=== PATIENT | female | born 1965 | race Caucasian/White ===

== ENCOUNTER 2019-08-23 22:41 | Observation (INO) | payer MEDICARE ==
--- NOTE | 2019-08-23 23:39 | ERPHSYRPT ---
- History of Present Illness Time Seen by Provider: 08/23/19 23:36 Historian: patient Patient Subjective Stated Complaint: Patient states " My stomach has really been hurting my the last 3 days". Patient states " At first I thought i had some food poisoning but the the pain went further down and to my right side". Patient states " I havent been able to eat for 3 days". Patient states she is able to drink. Patient with complaints of nausea. Triage Nursing Assessment: Patient arrived to ER. Patient ambulated to room with slow and steady gait. Patient A/O times 4. Patient answers questions appropriatley. Patient lungs diminshed throughout A/P. Patient with wheezes throughout prior to coughing. Patient denies SOB and chest pain. Patient denies vomiting. + BS times 4 quads, although very hypoactive. ABD large, obese. Patient yells out in pain when ABD is palpitated. Patient states pain radiates to her back. Physician History: For the past 3 days pt has had constant lower abdominal pain described as cramping/dull pain with nausea, chills and diaphoresis. Pt states she has COPD and has been on CPAP at night for 10 years. LBM was 2 days ago and normal without blood. Pt denies chest pain, vomiting, rash. Allergies/Adverse Reactions: amoxicillin [Amoxicillin] Allergy (Mild, Verified 08/23/19 23:11) aripiprazole [From Abilify] Allergy (Mild, Verified 08/23/19 23:11) azithromycin [From Zithromax] Allergy (Mild, Verified 08/23/19 23:11) codeine [Codeine] Allergy (Mild, Verified 08/23/19 23:11) metronidazole [From Flagyl] Allergy (Mild, Verified 08/23/19 23:11) Metronidazole HCl [From Flagyl] Allergy (Mild, Verified 08/23/19 23:11) Penicillins Allergy (Mild, Verified 08/23/19 23:11) quetiapine fumarate [From Seroquel] Allergy (Mild, Verified 08/23/19 23:11) trazodone Allergy (Mild, Verified 08/23/19 23:11) Home Medications: Albuterol Sulfate Mdi [Proair Hfa MDI] 8.5 gm IN DAILY 08/23/19 [History] Carvedilol 3.125 mg [Coreg 3.125 MG] 3.125 mg PO BID 08/23/19 [History] Duloxetine HCl 30 mg PO DAILY 08/23/19 [History] Duloxetine HCl 60 mg PO DAILY 08/23/19 [History] Fluticasone Propion/Salmeterol [[place]ixela 250-50 Inhub] 2 puffs PO DAILY 08/23/19 [ History] Folic Acid 1 mg PO DAILY 08/23/19 [History] Lisinopril/Hydrochlorothiazide [Lisinopril-Hctz 20-25 mg Tab] 20 - 25 mg PO DAILY 08/23/19 [History] Metformin HCl 500 mg PO BID 08/23/19 [History] Methotrexate Sodium 2.5 mg [Trexall 2.5 mg] 2.5 mg PO WEEKLY 08/23/19 [ History] clonazePAM [Clonazepam] 0.5 mg PO TID 08/23/19 [History] predniSONE [Prednisone] 5 mg PO BID 08/23/19 [History] Hx Tetanus, Diphtheria Vaccination/Date Given: No Hx Influenza Vaccination/Date Given: No Hx Pneumococcal Vaccination/Date Given: No Immunizations Up to Date: Yes Travel Risk - International Travel Have you traveled outside of the country in past 3 weeks: No Have you or anyone close to you been diagnosed with or: No Do your reside in a community with a known COVID-19 case?: Yes If Yes where:: [facility] - Coronavirus Screening Has patient experienced Coronavirus symptoms: No - Review of Systems Constitutional: Chills, Other (diaphoresis) Ears, Nose, & Throat: No Ear Pain Respiratory: Cough (chronic for years.) Cardiac: No Chest Pain Abdominal/Gastrointestinal: Abdominal Pain, Nausea, No Vomiting, No Diarrhea Genitourinary Symptoms: No Dysuria Skin: No Rash Neurological: No Headache All Other Systems: Reviewed and Negative - Past Medical History Pertinent Past Medical History: Yes Neurological History: No Pertinent History ENT History: No Pertinent History Cardiac History: Hypertension Respiratory History: Bronchitis, COPD, Other Endocrine Medical History: Diabetes Type II Musculoskeletal History: Rheumatoid Arthritis GI Medical History: No Pertinent History History: No Pertinent History Psycho-Social History: Anxiety, Bipolar, Depression Female Reproductive Disorders: Cervical Cancer - Past Surgical History Past Surgical History: Yes Neuro Surgical History: No Pertinent History Cardiac: No Pertinent History Respiratory: No Pertinent History Gastrointestinal: No Pertinent History Genitourinary: No Pertinent History Musculoskeletal: Orthopedic Surgery Female Surgical History: Tubal Ligation Other Surgical History: ankle - Social History Smoking Status: Current every day smoker How long have you smoked: 30 years Exposure to second hand smoke: Yes Drug Use: none Patient Lives Alone: No - Female History Hx Now: No - Nursing Vital Signs Nursing Vital Signs: Initial Vital Signs Temperature 99.4 F 08/23/19 22:52 Pulse Rate 120 H 08/23/19 22:52 Respiratory Rate 20 08/23/19 22:52 Blood Pressure 120/69 08/23/19 22:52 O2 Sat by Pulse Oximetry 97 08/23/19 22:52 Pain Scale Pain Intensity 8 - Physical Exam General Appearance: alert Eye Exam: PERRL/EOMI Ears, Nose, Throat Exam: TMs normal, pharyngeal erythema (mild) Neck Exam: normal inspection Respiratory Exam: wheezing (mild expiratory wheezing over posterior bases.) Cardiovascular Exam: normal heart sounds Gastrointestinal/Abdomen Exam: soft, normal bowel sounds, tenderness (mild diffuse) Back Exam: normal inspection Extremity Exam: No pedal edema Neurologic Exam: alert, cooperative Skin Exam: warm, dry SpO2 Interpretation: normal SpO2: 97 O2 Delivery: Room Air - Course Nursing assessment & vital signs reviewed: Yes EKG Interpreted by Me: RATE (71), Sinus Rhythm, NORMAL AXIS, Non-specific ST Changes - Radiology Exams Chest X-ray Interpretation: Interpreted by me (no pneumonia) - CT Exams Abdomen/Pelvis CT Interpretation: Tele-radiologist Report (large complex right adnexal mass with solid and cystic components measuring approximately 14.1 x 13.5 x 15.5 cm with mild surrounding inflammatory changes. malignancy as well as ovarian torsion cannot be excluded. recommend further evaluiation with a pelvic ultrasound with doppler. mildly enlarged right pelvic and retroperitoneal lymph nodes.) Ordered Tests: Active Orders 24 hr Category Date Time Status EKG-ER Only STAT Care 08/23/19 23:53 Active IV Insertion STAT Care 08/23/19 23:53 Active ABDOMEN AND PELVIS W/0 CONTRAS [CT] Stat Exams 08/24/19 00:30 Taken CHEST 2 VIEWS (PA AND LAT) Stat Exams 08/24/19 00:30 Taken PELVIC [US] Stat Exams 08/24/19 01:43 Ordered AMYLASE Stat Lab 08/23/19 23:33 Completed BLOOD CULTURE Stat Lab 08/24/19 00:32 Received CBC W DIFF Stat Lab 08/23/19 23:33 Completed CMP Stat Lab 08/23/19 23:33 Completed D-DIMER QUANTITATIVE Stat Lab 08/23/19 23:33 Completed HCG QUALITATIVE,SERUM Stat Lab 08/23/19 23:33 Completed LIPASE Stat Lab 08/23/19 23:33 Completed Lactic Acid Stat Lab 08/24/19 03:44 Ordered MAGNESIUM Stat Lab 08/23/19 23:33 Completed Manual Differential NC Stat Lab 08/23/19 23:33 Completed [place] Screen Stat Lab 08/23/19 23:33 Completed NT PRO BNP Stat Lab 08/23/19 23:33 Completed TROPONIN Q3H Lab 08/23/19 23:53 Completed TROPONIN Q3H Lab 08/24/19 02:53 Ordered TROPONIN Q3H Lab 08/24/19 05:53 Ordered TROPONIN Q3H Lab 08/24/19 08:53 Ordered TROPONIN Q3H Lab 08/24/19 11:53 Ordered Respiratory MDI STAT RT 08/24/19 00:23 Completed Respiratory Therapy Assessment DAILY RT 08/24/19 00:24 Completed Medication Summary Generic Name Dose Route Start Last Admin Trade Name Freq PRN Reason Stop Dose Admin Albuterol Sulfate 0.18 gm 08/23/19 23:45 Ventolin Hfa Mdi IH 09/22/19 23:44 1XONLY ISABEL Sodium Chloride 1,000 mls @ 100 mls/hr 08/23/19 23:45 08/24/19 00:12 Sodium Chloride 0.9% 1000 Ml IV 09/22/19 23:44 100 mls/hr .Q10H ISABEL Administration Discontinued Medications Generic Name Dose Route Start Last Admin Trade Name Freq PRN Reason Stop Dose Admin Albuterol Sulfate 2 puff 08/24/19 00:23 08/24/19 00:27 Ventolin Common Canister IH 08/24/19 00:24 2 puff ONCE ONE Administration Fentanyl Citrate 100 mcg 08/24/19 00:22 08/24/19 00:41 Sublimaze 100 Mcg/2 Ml IV 08/24/19 00:23 100 mcg STAT ONE Administration Fentanyl Citrate Confirm 08/24/19 00:39 Sublimaze 100 Mcg/2 Ml Administered 08/24/19 00:40 Dose 100 mcg .ROUTE .STK-MED ONE Ceftriaxone Sodium/Dextrose 1 g in 50 mls @ 100 mls/hr 08/23/19 23:53 00:13 Rocephin 1 Gm-D5w 50 Ml Bag IV 08/24/19 00:22 100 mls/hr STAT STA 100 mls/hr Administration Sodium Chloride 1,000 mls @ 999 mls/hr 08/24/19 02:16 08/24/19 02:18 Sodium Chloride 0.9% 1000 Ml IV 08/24/19 03:16 999 mls/hr .Q1H1M STA Administration Ketorolac Tromethamine 30 mg 08/24/19 03:45 Toradol 30 Mg Injection IV 08/24/19 03:46 STAT ONE Ondansetron HCl 4 mg 08/24/19 00:22 08/24/19 00:41 Zofran 4 Mg/2 Ml Vial IV 08/24/19 00:23 4 mg STAT ONE Administration Ondansetron HCl Confirm 08/24/19 00:39 Zofran 4 Mg/2 Ml Vial Administered 08/24/19 00:40 Dose 4 mg .ROUTE .STK-MED ONE Lab/Rad Data: Laboratory Result Diagrams 08/23/19 23:33 08/23/19 23:33 Laboratory Results 08/24/19 08/24/19 08/23/19 Range/Units 03:55 00:20 23:33 WBC (4.0-10.5) K/mm3 RBC (4.1-5.4) M/mm3 Hgb (12.0-16.0) gm/dl Hct (35-47) % MCV (78-100) fl MCH (26-32) pg MCHC (32-36) g/dl RDW (11.5-14.0) % Plt Count (150-450) K/mm3 MPV (7.5-11.0) fl D-Dimer (215-500) ng/mL Sodium (137-145) mmol/L Potassium (3.5-5.1) mmol/L Chloride (98-107) mmol/L Carbon Dioxide (22-30) mmol/L Anion Gap (5-15) MEQ/L BUN (7-17) mg/dL Creatinine (0.52-1.04) mg/dL Estimated GFR ML/MIN Glucose (74-106) mg/dL Lactic Acid 1.9 (0.4-2.0) Calcium (8.4-10.2) mg/dL Magnesium (1.6-2.3) mg/dL Total Bilirubin (0.2-1.3) mg/dL AST (14-36) U/L ALT (0-35) U/L Alkaline Phosphatase (38-126) U/L Troponin I < 0.012 (0.000-0.034) ng/mL NT-Pro-B Natriuret Pep (0-900) pg/mL Serum Total Protein (6.3-8.2) g/dL Albumin (3.5-5.0) g/dL Amylase (30-110) U/L Lipase (23-300) U/L Serum , Qual (Negative) Urine Color (YELLOW) Urine Appearance (CLEAR) Urine pH (5-6) Ur Specific [place] (1.005-1.025) Urine Protein (Negative) Urine Ketones (NEGATIVE) Urine Blood (0-5) Lui/ul Urine Nitrite (NEGATIVE) Urine Bilirubin (NEGATIVE) Urine Urobilinogen (0-1) mg/dL Ur Leukocyte Esterase (NEGATIVE) Urine WBC (Auto) (0-5) /HPF Urine RBC (Auto) (0-2) /HPF U Hyaline Cast (Auto) (0-2) /LPF U Epithel Cells (Auto) (FEW) /HPF Urine Bacteria (Auto) (NEGATIVE) /HPF U Non-Squamous Epi Cells (FEW) /HPF Unidentified Crystals (NEGATIVE) /HPF Other Casts (Auto) (NEGATIVE) /LPF Urine Mucus (Auto) (NEGATIVE) /HPF Urine Culture Reflexed (NO) Urine Glucose (NEGATIVE) mg/dL Monoscreen NEGATIVE (Negative) Influenza Type A Ag (NEGATIVE) Influenza Type B Ag (NEGATIVE) RSV (PCR) (Negative) Group A Strep Antibody (NEGATIVE) 08/23/19 08/23/19 08/23/19 Range/Units 23:33 23:33 23:33 WBC (4.0-10.5) K/mm3 RBC (4.1-5.4) M/mm3 Hgb (12.0-16.0) gm/dl Hct (35-47) % MCV (78-100) fl MCH (26-32) pg MCHC (32-36) g/dl RDW (11.5-14.0) % Plt Count (150-450) K/mm3 MPV (7.5-11.0) fl D-Dimer 1559 H* (215-500) ng/mL Sodium (137-145) mmol/L Potassium (3.5-5.1) mmol/L Chloride (98-107) mmol/L Carbon Dioxide (22-30) mmol/L Anion Gap (5-15) MEQ/L BUN (7-17) mg/dL Creatinine (0.52-1.04) mg/dL Estimated GFR ML/MIN Glucose (74-106) mg/dL Lactic Acid (0.4-2.0) Calcium (8.4-10.2) mg/dL Magnesium 2.0 (1.6-2.3) mg/dL Total Bilirubin (0.2-1.3) mg/dL AST (14-36) U/L ALT (0-35) U/L Alkaline Phosphatase (38-126) U/L Troponin I (0.000-0.034) ng/mL NT-Pro-B Natriuret Pep 110 (0-900) pg/mL Serum Total Protein (6.3-8.2) g/dL Albumin (3.5-5.0) g/dL Amylase (30-110) U/L Lipase (23-300) U/L Serum , Qual NEGATIVE (Negative) Urine Color (YELLOW) Urine Appearance (CLEAR) Urine pH (5-6) Ur Specific [place] (1.005-1.025) Urine Protein (Negative) Urine Ketones (NEGATIVE) Urine Blood (0-5) Lui/ul Urine Nitrite (NEGATIVE) Urine Bilirubin (NEGATIVE) Urine Urobilinogen (0-1) mg/dL Ur Leukocyte Esterase (NEGATIVE) Urine WBC (Auto) (0-5) /HPF Urine RBC (Auto) (0-2) /HPF U Hyaline Cast (Auto) (0-2) /LPF U Epithel Cells (Auto) (FEW) /HPF Urine Bacteria (Auto) (NEGATIVE) /HPF U Non-Squamous Epi Cells (FEW) /HPF Unidentified Crystals (NEGATIVE) /HPF Other Casts (Auto) (NEGATIVE) /LPF Urine Mucus (Auto) (NEGATIVE) /HPF Urine Culture Reflexed (NO) Urine Glucose (NEGATIVE) mg/dL Monoscreen (Negative) Influenza Type A Ag (NEGATIVE) Influenza Type B Ag (NEGATIVE) RSV (PCR) (Negative) Group A Strep Antibody (NEGATIVE) 08/23/19 08/23/19 08/23/19 Range/Units 23:33 23:33 00:38 WBC 26.6 H* (4.0-10.5) K/mm3 RBC 4.76 (4.1-5.4) M/mm3 Hgb 15.3 (12.0-16.0) gm/dl Hct 46.2 (35-47) % MCV 97.1 (78-100) fl MCH 32.1 H (26-32) pg MCHC 33.1 (32-36) g/dl RDW 14.2 H (11.5-14.0) % Plt Count 325 (150-450) K/mm3 MPV 9.8 (7.5-11.0) fl D-Dimer (215-500) ng/mL Sodium 138 (137-145) mmol/L Potassium 3.7 (3.5-5.1) mmol/L Chloride 98 (98-107) mmol/L Carbon Dioxide 27 (22-30) mmol/L Anion Gap 16.7 H (5-15) MEQ/L BUN 25 H (7-17) mg/dL Creatinine 1.30 H (0.52-1.04) mg/dL Estimated GFR 45.7 ML/MIN Glucose 145 H (74-106) mg/dL Lactic Acid (0.4-2.0) Calcium 10.3 H (8.4-10.2) mg/dL Magnesium (1.6-2.3) mg/dL Total Bilirubin 1.80 H (0.2-1.3) mg/dL AST 21 (14-36) U/L ALT 24 (0-35) U/L Alkaline Phosphatase 88 (38-126) U/L Troponin I (0.000-0.034) ng/mL NT-Pro-B Natriuret Pep (0-900) pg/mL Serum Total Protein 9.1 H (6.3-8.2) g/dL Albumin 4.5 (3.5-5.0) g/dL Amylase 85 (30-110) U/L Lipase 48 (23-300) U/L Serum , Qual (Negative) Urine Color (YELLOW) Urine Appearance (CLEAR) Urine pH (5-6) Ur Specific [place] (1.005-1.025) Urine Protein (Negative) Urine Ketones (NEGATIVE) Urine Blood (0-5) Lui/ul Urine Nitrite (NEGATIVE) Urine Bilirubin (NEGATIVE) Urine Urobilinogen (0-1) mg/dL Ur Leukocyte Esterase (NEGATIVE) Urine WBC (Auto) (0-5) /HPF Urine RBC (Auto) (0-2) /HPF U Hyaline Cast (Auto) (0-2) /LPF U Epithel Cells (Auto) (FEW) /HPF Urine Bacteria (Auto) (NEGATIVE) /HPF U Non-Squamous Epi Cells (FEW) /HPF Unidentified Crystals (NEGATIVE) /HPF Other Casts (Auto) (NEGATIVE) /LPF Urine Mucus (Auto) (NEGATIVE) /HPF Urine Culture Reflexed (NO) Urine Glucose (NEGATIVE) mg/dL Monoscreen (Negative) Influenza Type A Ag NEGATIVE (NEGATIVE) Influenza Type B Ag NEGATIVE (NEGATIVE) RSV (PCR) NEGATIVE (Negative) Group A Strep Antibody NOT DETECTED (NEGATIVE) 08/23/19 Range/Units 00:30 WBC (4.0-10.5) K/mm3 RBC (4.1-5.4) M/mm3 Hgb (12.0-16.0) gm/dl Hct (35-47) % MCV (78-100) fl MCH (26-32) pg MCHC (32-36) g/dl RDW (11.5-14.0) % Plt Count (150-450) K/mm3 MPV (7.5-11.0) fl D-Dimer (215-500) ng/mL Sodium (137-145) mmol/L Potassium (3.5-5.1) mmol/L Chloride (98-107) mmol/L Carbon Dioxide (22-30) mmol/L Anion Gap (5-15) MEQ/L BUN (7-17) mg/dL Creatinine (0.52-1.04) mg/dL Estimated GFR ML/MIN Glucose (74-106) mg/dL Lactic Acid (0.4-2.0) Calcium (8.4-10.2) mg/dL Magnesium (1.6-2.3) mg/dL Total Bilirubin (0.2-1.3) mg/dL AST (14-36) U/L ALT (0-35) U/L Alkaline Phosphatase (38-126) U/L Troponin I (0.000-0.034) ng/mL NT-Pro-B Natriuret Pep (0-900) pg/mL Serum Total Protein (6.3-8.2) g/dL Albumin (3.5-5.0) g/dL Amylase (30-110) U/L Lipase (23-300) U/L Serum , Qual (Negative) Urine Color LARRY (YELLOW) Urine Appearance CLOUDY (CLEAR) Urine pH 5.0 (5-6) Ur Specific [place] 1.027 (1.005-1.025) Urine Protein 100 (Negative) Urine Ketones NEGATIVE (NEGATIVE) Urine Blood NEGATIVE (0-5) Lui/ul Urine Nitrite NEGATIVE (NEGATIVE) Urine Bilirubin MODERATE (NEGATIVE) Urine Urobilinogen 4 (0-1) mg/dL Ur Leukocyte Esterase SMALL (NEGATIVE) Urine WBC (Auto) 51-100 (0-5) /HPF Urine RBC (Auto) 6-10 (0-2) /HPF U Hyaline Cast (Auto) 6-10 (0-2) /LPF U Epithel Cells (Auto) PACKED (FEW) /HPF Urine Bacteria (Auto) MANY (NEGATIVE) /HPF U Non-Squamous Epi Cells RARE (FEW) /HPF Unidentified Crystals 25-50 (NEGATIVE) /HPF Other Casts (Auto) 25-50 (NEGATIVE) /LPF Urine Mucus (Auto) MANY (NEGATIVE) /HPF Urine Culture Reflexed YES (NO) Urine Glucose NEGATIVE (NEGATIVE) mg/dL Monoscreen (Negative) Influenza Type A Ag (NEGATIVE) Influenza Type B Ag (NEGATIVE) RSV (PCR) (Negative) Group A Strep Antibody (NEGATIVE) - Progress Progress: improved Discussed with : Dawn (spoke with dr wilson - obs) Will see patient in: hospital (observation) Counseled pt/family regarding: lab results, rad results - Departure Departure Disposition: Observation Clinical Impression: UTI (urinary tract infection), Leukocytosis, Abdominal mass, D-dimer, elevated , COPD (chronic obstructive pulmonary disease), HTN (hypertension), Diabetes, Rheumatoid arthritis, Bipolar disorder, Anxiety Condition: Stable Critical Care Time: No Referrals: TATUM MINER MD [Primary Care Provider] - Instructions: Chronic Obstructive Pulmonary Disease
[2019-08-23] MEDS ORDERED: Ventolin Hfa MDI IH SCH (23:45)
[2019-08-23] MEDS ORDERED: ROCEPHIN 1 Gm-D5w 50 ml Bag** 1 G/50 ML IVPB IV STA (23:53)
[2019-08-24 00:06] LABS: Hematocrit 46.2 % (35-47); Hemoglobin 15.3 gm/dl (12.0-16.0); Mean Cell Volume 97.1 fl (78-100); Mean Corpuscular Hemoglobin 32.1 pg (26-32); Mean Corpuscular Hgb Concent. 33.1 g/dl (32-36); Mean Platelet Volume 9.8 fl (7.5-11.0); Platelet Count 325 K/mm3 (150-450); Red Blood Count 4.76 M/mm3 (4.1-5.4); Red Cell Distribution Width 14.2 % (11.5-14.0)
[2019-08-24] MEDS: Sodium Chloride 0.9% 1000 ML 1,000 ML IV SCH ×5 (00:12→22:47)
[2019-08-24] MEDS ORDERED: SUBLIMAZE 100 MCG/2 ML IV ONE (00:22)
[2019-08-24] MEDS ORDERED: Zofran 4 MG/2 ML VIAL IV ONE (00:22)
[2019-08-24 00:23] LABS: ALBUMIN 4.5 g/dL (3.5-5.0); ANION GAP 16.7 MEQ/L (5-15); BILIRUBIN,TOTAL 1.8 mg/dL (0.2-1.3); Calcium 10.3 mg/dL (8.4-10.2); Creatinine 1 1.3 mg/dL (0.52-1.04); Potassium 3.7 mmol/L (3.5-5.1); Total Protein 9.1 g/dL (6.3-8.2)
[2019-08-24] MEDS ORDERED: VENTOLIN COMMON CANISTER IH ONE (00:23)
[2019-08-24] MEDS ORDERED: SUBLIMAZE 100 MCG/2 ML ONE (00:39)
[2019-08-24] MEDS ORDERED: Zofran 4 MG/2 ML VIAL ONE (00:39)
[2019-08-24 00:47] LABS: White Blood Count 26.6 K/mm3 (4.0-10.5)
[2019-08-24 01:26] LABS: INFLUENZA A NEGATIVE (NEGATIVE); INFLUENZA B NEGATIVE (NEGATIVE); RESPIRATORY SYNCTIAL VIRUS NEGATIVE (Negative)
[2019-08-24] MEDS ORDERED: Sodium Chloride 0.9% 1000 ML 1,000 ML IV STA (02:16)
[2019-08-24 02:48] LABS: Appearance CLOUDY (CLEAR); Bacteria MANY /HPF (NEGATIVE); Bilirubin MODERATE (NEGATIVE); Blood NEGATIVE Ery/ul (0-5); Crystals Unidentified 25-50 /HPF (NEGATIVE); Epithelial Cells PACKED /HPF (FEW); Glucose NEGATIVE (NEGATIVE); Ketones NEGATIVE (NEGATIVE); Leukocyte Esterase SMALL (NEGATIVE); Mucus MANY /HPF (NEGATIVE); Nitrite NEGATIVE (NEGATIVE); Non-Squamous Epithelial Cells RARE /HPF (FEW); Protein,Urine Dip 100 (Negative); Specific Gravity 1.027 (1.005-1.025); Urobilinogen 4 mg/dL (0-1); WBC 51-100 /HPF (0-5)
[2019-08-24] MEDS ORDERED: TORAdol 30 mg Injection IV ONE (03:45)
[2019-08-24] MEDS ORDERED: TORAdol 30 mg Injection ONE (04:01)
[2019-08-24] MEDS ORDERED: ENOXAPARIN SODIUM SQ STA (04:07)
[2019-08-24] MEDS ORDERED: HUMALOG SQ PRN (04:08)
[2019-08-24] MEDS ORDERED: Zofran 4 MG/2 ML VIAL IV PRN (04:08)
[2019-08-24 05:11] LABS: Lymphocytes 16 % (24-44); Monocyte 4 % (0.0-12.0); Neutrophils 80 % (36.0-66.0); Platelet Estimate NORMAL (NORMAL); Total Cells Counted 100
[2019-08-24 05:12] LABS: ANISOCYTOSIS 1+; Toxic Granulation 1+
[2019-08-24] MEDS ORDERED: PATIENT OWN MEDICATION IH PRN (06:05)
[2019-08-24] MEDS: Advair Hfa 115/21 Common canister IH SCH ×2 (07:49→21:15)
--- NOTE | 2019-08-24 08:10 | XRAY ---
Indication: Wheezing. Comparison: None PA/lateral chest hyperinflated and clear. Heart is not enlarged. Bony thorax intact. Impression: Nonacute hyperinflated chest.
[2019-08-24] MEDS: ENOXAPARIN SODIUM SQ SCH ×2 (08:19→20:53)
--- NOTE | 2019-08-24 08:32 | XRAY ---
Indication: Pelvic mass. Ovarian torsion. Abnormal CT. Two-dimensional transabdominal pelvic sonogram performed. Comparison: None Large 13.3 x 9.4 x 9.7 cm right adnexa predominantly cystic mass seen with septations and low-level internal echoes worrisome for malignancy. Finding obscures visualization of the uterus with only the fundus of visualized. Endometrial stripe measures 13.9 mm. Left ovary not seen. No free fluid. Impression: Right adnexa complex mass as detailed worrisome for malignancy. Uterus and left ovary not well evaluated due to mass. Comment: Preliminary interpretation was made by [facility]. No critical discrepancy.
--- NOTE | 2019-08-24 08:33 | XRAY ---
Indication: Right flank pain 3 days ago. Nausea. History cervical cancer. Multiple contiguous axial images obtained through the abdomen and pelvis without contrast as ordered. Comparison: None Lung bases are clear. Heart is not enlarged. Noncontrasted stomach and bowel loops appear nonobstructed. Normal appendix. Pelvic inlet demonstrates a 14.1 x 13.5 x 15.5 cm solid/cystic mass with mild perinephric stranding. A few small right iliac chain lymph nodes, largest 1.2 x 1.8 cm. No free fluid/air. Remaining liver, gallbladder, pancreas, spleen, adrenal glands, kidneys, ureters, bladder, uterus, and aorta appear unremarkable for noncontrast exam. Osseous structures intact with lumbosacral junction degenerative disc disease. Moderate sized fatty supraumbilical ventral hernia and small fluid-filled umbilical hernia. Impression: 1. Large complex pelvic mass probably ovary in etiology. Malignancy is of primary concern. Small right iliac chain lymph nodes probably metastatic. 2. Incidental fatty supraumbilical and fluid-filled umbilical hernias. Comment: Preliminary interpretation was made by [facility]. No critical discrepancy.
[2019-08-24] MEDS: TORAdol 30 mg Injection IV PRN ×3 (08:39→21:36)
[2019-08-24] MEDS: FOLATE 1 MG PO SCH (12:26)
[2019-08-24] MEDS: Coreg 3.125 MG PO SCH ×2 (12:26→20:52)
[2019-08-24] MEDS: DELTASONE 5 MG PO SCH ×2 (12:26→21:03)
[2019-08-24] MEDS: Klonopin 0.5 MG PO SCH ×3 (12:26→20:51)
[2019-08-24] MEDS: Cymbalta 30 MG Capsule PO SCH (12:26)
--- NOTE | 2019-08-24 13:40 | PCM.SSS ---
History of Present Illness - Chief Complaint Chief Complaint: ABD MASS, UTI, ELEVATED D-DIMER History of Present Illness: is a 54 year old female pt of Dr. Dawkins with COPD, HTN, DM, RA, bipolar, and anxiety who was admitted through ER with abd pain; found to have UTI and also a large R adnexal complex mass concerning for malignancy. Her d- dimer was also elevated but she was unable to have CTA to r/o PE due to her eGFR < 50. She was started on therapeutic dose of lovenox. CT abd/pelvis w/o contrast whoed R pelvic mass 14x13.5x15.5 cm - u/s measured mass at 13.3x9.4x9.7cm. WBC 26,600. Pt started having pain 4d ago suddenly in the evening, was 10/10 at home, now 7/ 10 with IV toradol. THe pain started in the lower abdomen and later localized to the right side. She last ate 4d ago but has been tring to drink; did have decreased urine output. Pt has known ventral and umbilical hernias and these have had increased pain this week as well. Pt had abn pap approx 30yrs ago and had cryotherapy (at [facility] in [place]). - Review of Systems Constitutional: No Fever Abdominal/Gastrointestinal: Abdominal Pain, Nausea, Appetite Changes, No Vomiting, No Diarrhea Neurological: Dizziness All Other Systems: Reviewed and Negative Medications & Allergies Home Medications: Home Medication List Albuterol Sulfate Mdi [Proair Hfa MDI] 8.5 gm IN QID PRN 08/23/19 [ History Confirmed 08/24/19] Carvedilol 3.125 mg [Coreg 3.125 MG] 3.125 mg PO BID 08/23/19 [History Confirmed 08/24/19] Duloxetine HCl 30 mg PO DAILY 08/23/19 [History Confirmed 08/24/19] Duloxetine HCl 60 mg PO DAILY 08/23/19 [History Confirmed 08/24/19] Fluticasone Propion/Salmeterol [Wixela 250-50 Inhub] 2 puffs PO BID 08/23/19 [ History Confirmed 08/24/19] Folic Acid 1 mg PO DAILY 08/23/19 [History Confirmed 08/24/19] Lisinopril/Hydrochlorothiazide [Lisinopril-Hctz 20-25 mg Tab] 20 - 25 mg PO DAILY 08/23/19 [History Confirmed 08/24/19] Metformin HCl 500 mg PO BID 08/23/19 [History Confirmed 08/24/19] Methotrexate Sodium 2.5 mg [Trexall 2.5 mg] 15 mg PO WEEKLY 08/23/19 [ History Confirmed 08/24/19] clonazePAM [Clonazepam] 0.5 mg PO TID 08/23/19 [History Confirmed 08/24/19] predniSONE [Prednisone] 5 mg PO BID 08/23/19 [History Confirmed 08/24/19] Allergies/Adverse Reactions: Allergies Allergy/AdvReac Type Severity Reaction Status Date / Time amoxicillin [Amoxicillin] Allergy Severe Rash Verified 08/24/19 05:23 aripiprazole [From Abilify] Allergy Severe Swelling Verified 08/24/19 05:23 metronidazole [From Flagyl] Allergy Severe Rash Verified 08/24/19 05:23 Metronidazole HCl Allergy Severe Rash Verified 08/24/19 05:23 [From Flagyl] Penicillins Allergy Severe Rash Verified 08/24/19 05:23 quetiapine fumarate Allergy Severe Swelling Verified 08/24/19 05:23 [From Seroquel] azithromycin [From Zithromax] Allergy Mild Verified 08/24/19 05:23 codeine [Codeine] Allergy Mild Nausea Verified 08/24/19 05:23 trazodone AdvReac Mild Verified 08/24/19 05:23 - Past Medical History Past Medical History: Yes Neurological History: No Pertinent History ENT History: No Pertinent History Cardiac History: Hypertension Respiratory History: Bronchitis, COPD, Other Endocrine Medical History: Diabetes Type II Musculoskelatal History: Rheumatoid Arthritis GI Medical History: No Pertinent History History: No Pertinent History Pyscho-Social History: Anxiety, Bipolar, Depression Reproductive Disorders: Cervical Cancer - Female History Are you now?: No - Past Surgical History Past Surgical History: Yes Neuro Surgical History: No Pertinent History Cardiac History: No Pertinent History Respiratory Surgery: No Pertinent History GI Surgical History: No Pertinent History Genitourinary Surgical Hx: No Pertinent History Musculskeletal Surgical Hx: Orthopedic Surgery Female Surgical History: Tubal Ligation Other Surgical History: ankle. LT KNEE DRAINED, WASHED - Social History Smoking Status: Current every day smoker How long have you smoked: 30 years Exposure to second hand smoke: No Alcohol: None Drug Use: none - Physical Exam Vital Signs: Vital Signs - 24 hr Temp Pulse Resp BP Pulse Ox 08/24/19 11:57 98.2 F 81 20 114/62 92 L 08/24/19 07:49 85 L 08/24/19 07:42 96.8 F 85 20 93/53 93 L 08/24/19 04:53 99.3 F 105 H 20 101/53 96 08/24/19 04:12 95 08/24/19 04:06 97 08/24/19 03:02 99 H 18 109/57 99 08/24/19 02:11 68 18 87/36 99 08/24/19 01:35 86 20 75/47 96 08/24/19 00:27 71 20 92 L 08/23/19 23:43 115 H 20 95/60 95 08/23/19 22:52 99.4 F 120 H 20 120/69 97 Oxygen-Last 24 hours Oxygen Flowrate (L/min)-RT 2 General Appearance: no apparent distress, obese Neurologic Exam: oriented x 3, cooperative Eye Exam: eyes nml inspection Ears, Nose, Throat Exam: moist mucous membranes Neck Exam: normal inspection, non-tender, No lymphadenopathy Respiratory Exam: normal breath sounds, lungs clear, No crackles/rales, No rhonchi, No wheezing Cardiovascular Exam: regular rate/rhythm, normal heart sounds, No murmur Gastrointestinal/Abdomen Exam: soft, normal bowel sounds, tenderness (lower abd bilat), distention (ventral hernia apparent; ttp), No mass, No guarding, No rebound Back Exam: normal inspection, No rash Extremity Exam: normal inspection, No pedal edema, No swelling Skin Exam: normal color, warm, dry, No rash Results - Labs Lab/Micro Results: Accuchecks Date 08/24/19 Time 11:56 Accucheck Value: 104 Accucheck Value: 104 Accucheck Value: 110 Lab Results-Last 24 Hours 08/23/19 08/23/19 08/23/19 Range/Units 00:30 00:38 23:33 WBC 26.6 H* (4.0-10.5) K/mm3 RBC 4.76 (4.1-5.4) M/mm3 Hgb 15.3 (12.0-16.0) gm/dl Hct 46.2 (35-47) % MCV 97.1 (78-100) fl MCH 32.1 H (26-32) pg MCHC 33.1 (32-36) g/dl RDW 14.2 H (11.5-14.0) % Plt Count 325 (150-450) K/mm3 MPV 9.8 (7.5-11.0) fl Segmented Neutrophils 80 H (36.0-66.0) % Lymphocytes (Manual) 16 L (24-44) % Monocytes (Manual) 4 (0.0-12.0) % Toxic Granulation 1+ Platelet Estimate NORMAL (NORMAL) RBC Morphology ABNORMAL Anisocytosis 1+ D-Dimer (215-500) ng/mL Sodium (137-145) mmol/L Potassium (3.5-5.1) mmol/L Chloride (98-107) mmol/L Carbon Dioxide (22-30) mmol/L Anion Gap (5-15) MEQ/L BUN (7-17) mg/dL Creatinine (0.52-1.04) mg/dL Estimated GFR ML/MIN Glucose (74-106) mg/dL Hemoglobin A1c (4.5-6.0) % Lactic Acid (0.4-2.0) Calcium (8.4-10.2) mg/dL Magnesium (1.6-2.3) mg/dL Total Bilirubin (0.2-1.3) mg/dL AST (14-36) U/L ALT (0-35) U/L Alkaline Phosphatase (38-126) U/L Troponin I (0.000-0.034) ng/mL NT-Pro-B Natriuret Pep (0-900) pg/mL Serum Total Protein (6.3-8.2) g/dL Albumin (3.5-5.0) g/dL Amylase (30-110) U/L Lipase (23-300) U/L Serum , Qual (Negative) Urine Color LRARY (YELLOW) Urine Appearance CLOUDY (CLEAR) Urine pH 5.0 (5-6) Ur Specific [place] 1.027 (1.005-1.025) Urine Protein 100 (Negative) Urine Ketones NEGATIVE (NEGATIVE) Urine Blood NEGATIVE (0-5) Lui/ul Urine Nitrite NEGATIVE (NEGATIVE) Urine Bilirubin MODERATE (NEGATIVE) Urine Urobilinogen 4 (0-1) mg/dL Ur Leukocyte Esterase SMALL (NEGATIVE) Urine WBC (Auto) 51-100 (0-5) /HPF Urine RBC (Auto) 6-10 (0-2) /HPF U Hyaline Cast (Auto) 6-10 (0-2) /LPF U Epithel Cells (Auto) PACKED (FEW) /HPF Urine Bacteria (Auto) MANY (NEGATIVE) /HPF U Non-Squamous Epi Cells RARE (FEW) /HPF Unidentified Crystals 25-50 (NEGATIVE) /HPF Other Casts (Auto) 25-50 (NEGATIVE) /LPF Urine Mucus (Auto) MANY (NEGATIVE) /HPF Urine Culture Reflexed YES (NO) Urine Glucose NEGATIVE (NEGATIVE) mg/dL Monoscreen (Negative) Influenza Type A Ag NEGATIVE (NEGATIVE) Influenza Type B Ag NEGATIVE (NEGATIVE) RSV (PCR) NEGATIVE (Negative) Group A Strep Antibody NOT DETECTED (NEGATIVE) 08/23/19 08/23/19 08/23/19 Range/Units 23:33 23:33 23:33 WBC (4.0-10.5) K/mm3 RBC (4.1-5.4) M/mm3 Hgb (12.0-16.0) gm/dl Hct (35-47) % MCV (78-100) fl MCH (26-32) pg MCHC (32-36) g/dl RDW (11.5-14.0) % Plt Count (150-450) K/mm3 MPV (7.5-11.0) fl Segmented Neutrophils (36.0-66.0) % Lymphocytes (Manual) (24-44) % Monocytes (Manual) (0.0-12.0) % Toxic Granulation Platelet Estimate (NORMAL) RBC Morphology Anisocytosis D-Dimer (215-500) ng/mL Sodium 138 (137-145) mmol/L Potassium 3.7 (3.5-5.1) mmol/L Chloride 98 (98-107) mmol/L Carbon Dioxide 27 (22-30) mmol/L Anion Gap 16.7 H (5-15) MEQ/L BUN 25 H (7-17) mg/dL Creatinine 1.30 H (0.52-1.04) mg/dL Estimated GFR 45.7 ML/MIN Glucose 145 H (74-106) mg/dL Hemoglobin A1c (4.5-6.0) % Lactic Acid (0.4-2.0) Calcium 10.3 H (8.4-10.2) mg/dL Magnesium 2.0 (1.6-2.3) mg/dL Total Bilirubin 1.80 H (0.2-1.3) mg/dL AST 21 (14-36) U/L ALT 24 (0-35) U/L Alkaline Phosphatase 88 (38-126) U/L Troponin I (0.000-0.034) ng/mL NT-Pro-B Natriuret Pep 110 (0-900) pg/mL Serum Total Protein 9.1 H (6.3-8.2) g/dL Albumin 4.5 (3.5-5.0) g/dL Amylase 85 (30-110) U/L Lipase 48 (23-300) U/L Serum , Qual NEGATIVE (Negative) Urine Color (YELLOW) Urine Appearance (CLEAR) Urine pH (5-6) Ur Specific [place] (1.005-1.025) Urine Protein (Negative) Urine Ketones (NEGATIVE) Urine Blood (0-5) Lui/ul Urine Nitrite (NEGATIVE) Urine Bilirubin (NEGATIVE) Urine Urobilinogen (0-1) mg/dL Ur Leukocyte Esterase (NEGATIVE) Urine WBC (Auto) (0-5) /HPF Urine RBC (Auto) (0-2) /HPF U Hyaline Cast (Auto) (0-2) /LPF U Epithel Cells (Auto) (FEW) /HPF Urine Bacteria (Auto) (NEGATIVE) /HPF U Non-Squamous Epi Cells (FEW) /HPF Unidentified Crystals (NEGATIVE) /HPF Other Casts (Auto) (NEGATIVE) /LPF Urine Mucus (Auto) (NEGATIVE) /HPF Urine Culture Reflexed (NO) Urine Glucose (NEGATIVE) mg/dL Monoscreen (Negative) Influenza Type A Ag (NEGATIVE) Influenza Type B Ag (NEGATIVE) RSV (PCR) (Negative) Group A Strep Antibody (NEGATIVE) 08/23/19 08/23/19 08/24/19 Range/Units 23:33 23:33 00:20 WBC (4.0-10.5) K/mm3 RBC (4.1-5.4) M/mm3 Hgb (12.0-16.0) gm/dl Hct (35-47) % MCV (78-100) fl MCH (26-32) pg MCHC (32-36) g/dl RDW (11.5-14.0) % Plt Count (150-450) K/mm3 MPV (7.5-11.0) fl Segmented Neutrophils (36.0-66.0) % Lymphocytes (Manual) (24-44) % Monocytes (Manual) (0.0-12.0) % Toxic Granulation Platelet Estimate (NORMAL) RBC Morphology Anisocytosis D-Dimer 1559 H* (215-500) ng/mL Sodium (137-145) mmol/L Potassium (3.5-5.1) mmol/L Chloride (98-107) mmol/L Carbon Dioxide (22-30) mmol/L Anion Gap (5-15) MEQ/L BUN (7-17) mg/dL Creatinine (0.52-1.04) mg/dL Estimated GFR ML/MIN Glucose (74-106) mg/dL Hemoglobin A1c (4.5-6.0) % Lactic Acid (0.4-2.0) Calcium (8.4-10.2) mg/dL Magnesium (1.6-2.3) mg/dL Total Bilirubin (0.2-1.3) mg/dL AST (14-36) U/L ALT (0-35) U/L Alkaline Phosphatase (38-126) U/L Troponin I < 0.012 (0.000-0.034) ng/mL NT-Pro-B Natriuret Pep (0-900) pg/mL Serum Total Protein (6.3-8.2) g/dL Albumin (3.5-5.0) g/dL Amylase (30-110) U/L Lipase (23-300) U/L Serum , Qual (Negative) Urine Color (YELLOW) Urine Appearance (CLEAR) Urine pH (5-6) Ur Specific [place] (1.005-1.025) Urine Protein (Negative) Urine Ketones (NEGATIVE) Urine Blood (0-5) Lui/ul Urine Nitrite (NEGATIVE) Urine Bilirubin (NEGATIVE) Urine Urobilinogen (0-1) mg/dL Ur Leukocyte Esterase (NEGATIVE) Urine WBC (Auto) (0-5) /HPF Urine RBC (Auto) (0-2) /HPF U Hyaline Cast (Auto) (0-2) /LPF U Epithel Cells (Auto) (FEW) /HPF Urine Bacteria (Auto) (NEGATIVE) /HPF U Non-Squamous Epi Cells (FEW) /HPF Unidentified Crystals (NEGATIVE) /HPF Other Casts (Auto) (NEGATIVE) /LPF Urine Mucus (Auto) (NEGATIVE) /HPF Urine Culture Reflexed (NO) Urine Glucose (NEGATIVE) mg/dL Monoscreen NEGATIVE (Negative) Influenza Type A Ag (NEGATIVE) Influenza Type B Ag (NEGATIVE) RSV (PCR) (Negative) Group A Strep Antibody (NEGATIVE) 08/24/19 08/24/19 08/24/19 Range/Units 03:10 03:55 05:45 WBC (4.0-10.5) K/mm3 RBC (4.1-5.4) M/mm3 Hgb (12.0-16.0) gm/dl Hct (35-47) % MCV (78-100) fl MCH (26-32) pg MCHC (32-36) g/dl RDW (11.5-14.0) % Plt Count (150-450) K/mm3 MPV (7.5-11.0) fl Segmented Neutrophils (36.0-66.0) % Lymphocytes (Manual) (24-44) % Monocytes (Manual) (0.0-12.0) % Toxic Granulation Platelet Estimate (NORMAL) RBC Morphology Anisocytosis D-Dimer (215-500) ng/mL Sodium (137-145) mmol/L Potassium (3.5-5.1) mmol/L Chloride (98-107) mmol/L Carbon Dioxide (22-30) mmol/L Anion Gap (5-15) MEQ/L BUN (7-17) mg/dL Creatinine (0.52-1.04) mg/dL Estimated GFR ML/MIN Glucose (74-106) mg/dL Hemoglobin A1c (4.5-6.0) % Lactic Acid 1.9 (0.4-2.0) Calcium (8.4-10.2) mg/dL Magnesium (1.6-2.3) mg/dL Total Bilirubin (0.2-1.3) mg/dL AST (14-36) U/L ALT (0-35) U/L Alkaline Phosphatase (38-126) U/L Troponin I < 0.012 < 0.012 (0.000-0.034) ng/mL NT-Pro-B Natriuret Pep (0-900) pg/mL Serum Total Protein (6.3-8.2) g/dL Albumin (3.5-5.0) g/dL Amylase (30-110) U/L Lipase (23-300) U/L Serum , Qual (Negative) Urine Color (YELLOW) Urine Appearance (CLEAR) Urine pH (5-6) Ur Specific [place] (1.005-1.025) Urine Protein (Negative) Urine Ketones (NEGATIVE) Urine Blood (0-5) Lui/ul Urine Nitrite (NEGATIVE) Urine Bilirubin (NEGATIVE) Urine Urobilinogen (0-1) mg/dL Ur Leukocyte Esterase (NEGATIVE) Urine WBC (Auto) (0-5) /HPF Urine RBC (Auto) (0-2) /HPF U Hyaline Cast (Auto) (0-2) /LPF U Epithel Cells (Auto) (FEW) /HPF Urine Bacteria (Auto) (NEGATIVE) /HPF U Non-Squamous Epi Cells (FEW) /HPF Unidentified Crystals (NEGATIVE) /HPF Other Casts (Auto) (NEGATIVE) /LPF Urine Mucus (Auto) (NEGATIVE) /HPF Urine Culture Reflexed (NO) Urine Glucose (NEGATIVE) mg/dL Monoscreen (Negative) Influenza Type A Ag (NEGATIVE) Influenza Type B Ag (NEGATIVE) RSV (PCR) (Negative) Group A Strep Antibody (NEGATIVE) 08/24/19 08/24/19 Range/Units 07:50 08:40 WBC (4.0-10.5) K/mm3 RBC (4.1-5.4) M/mm3 Hgb (12.0-16.0) gm/dl Hct (35-47) % MCV (78-100) fl MCH (26-32) pg MCHC (32-36) g/dl RDW (11.5-14.0) % Plt Count (150-450) K/mm3 MPV (7.5-11.0) fl Segmented Neutrophils (36.0-66.0) % Lymphocytes (Manual) (24-44) % Monocytes (Manual) (0.0-12.0) % Toxic Granulation Platelet Estimate (NORMAL) RBC Morphology Anisocytosis D-Dimer (215-500) ng/mL Sodium (137-145) mmol/L Potassium (3.5-5.1) mmol/L Chloride (98-107) mmol/L Carbon Dioxide (22-30) mmol/L Anion Gap (5-15) MEQ/L BUN (7-17) mg/dL Creatinine (0.52-1.04) mg/dL Estimated GFR ML/MIN Glucose (74-106) mg/dL Hemoglobin A1c 6.25 H (4.5-6.0) % Lactic Acid (0.4-2.0) Calcium (8.4-10.2) mg/dL Magnesium (1.6-2.3) mg/dL Total Bilirubin (0.2-1.3) mg/dL AST (14-36) U/L ALT (0-35) U/L Alkaline Phosphatase (38-126) U/L Troponin I < 0.012 (0.000-0.034) ng/mL NT-Pro-B Natriuret Pep (0-900) pg/mL Serum Total Protein (6.3-8.2) g/dL Albumin (3.5-5.0) g/dL Amylase (30-110) U/L Lipase (23-300) U/L Serum , Qual (Negative) Urine Color (YELLOW) Urine Appearance (CLEAR) Urine pH (5-6) Ur Specific [place] (1.005-1.025) Urine Protein (Negative) Urine Ketones (NEGATIVE) Urine Blood (0-5) Lui/ul Urine Nitrite (NEGATIVE) Urine Bilirubin (NEGATIVE) Urine Urobilinogen (0-1) mg/dL Ur Leukocyte Esterase (NEGATIVE) Urine WBC (Auto) (0-5) /HPF Urine RBC (Auto) (0-2) /HPF U Hyaline Cast (Auto) (0-2) /LPF U Epithel Cells (Auto) (FEW) /HPF Urine Bacteria (Auto) (NEGATIVE) /HPF U Non-Squamous Epi Cells (FEW) /HPF Unidentified Crystals (NEGATIVE) /HPF Other Casts (Auto) (NEGATIVE) /LPF Urine Mucus (Auto) (NEGATIVE) /HPF Urine Culture Reflexed (NO) Urine Glucose (NEGATIVE) mg/dL Monoscreen (Negative) Influenza Type A Ag (NEGATIVE) Influenza Type B Ag (NEGATIVE) RSV (PCR) (Negative) Group A Strep Antibody (NEGATIVE) Accuchecks Date 08/24/19 Time 11:56 Accucheck Value: 104 Accucheck Value: 104 Accucheck Value: 110 - Radiology Impressions Radiology Exams & Impressions: Radiology Procedures Category Date Time Status ABDOMEN AND PELVIS W/0 CONTRAS [CT] Stat Exams 08/24/19 00:30 Completed CHEST 2 VIEWS (PA AND LAT) Stat Exams 08/24/19 00:30 Completed PELVIC [US] Stat Exams 08/24/19 01:43 Completed PULMONARY PERF VENTILATION [NUCMED] Stat Exams 08/24/19 04:08 Ordered - Other Procedures and Tests Respiratory Therapy 08/24/19 04:08 Oxygen Nasal Cannula 2 lpm 08/24/19 06:09 BiPap/CPAP ROUTINE 08/24/19 07:00 Respiratory MDI BID Assessment/Plan (1) Abdominal mass Current Visit: Yes Status: Acute Qualifiers: Abdominal location: right lower quadrant Qualified Code(s): R19.03 - Right lower quadrant abdominal swelling, mass and lump Assessment & Plan: Dr. Dowell is currently seeing the pt, thank you; due to concern for possible malignancy, I anticipate she will be transferred to an outside facility. Code(s): R19.00 - INTRA-ABD AND PELVIC SWELLING, MASS AND LUMP, UNSP SITE (2) D-dimer, elevated Current Visit: Yes Status: Acute Assessment & Plan: Could be related to possible malignancy, but was unable to r/o PE in the ER. Code(s): R79.89 - OTHER SPECIFIED ABNORMAL FINDINGS OF BLOOD CHEMISTRY (3) Acute renal insufficiency Current Visit: Yes Status: Acute Assessment & Plan: likely due to decreased PO intake recently. Code(s): N28.9 - DISORDER OF KIDNEY AND URETER, UNSPECIFIED (4) UTI (urinary tract infection) Current Visit: Yes Status: Acute Qualifiers: Urinary tract infection type: acute cystitis Hematuria presence: with hematuria Qualified Code(s): N30.01 - Acute cystitis with hematuria Assessment & Plan: On IV rocephin; UCx pending. Code(s): N39.0 - URINARY TRACT INFECTION, SITE NOT SPECIFIED (5) Rheumatoid arthritis Current Visit: Yes Status: Chronic Qualifiers: Rheumatoid arthritis location: unspecified site Rheumatoid factor presence : with rheumatoid factor Qualified Code(s): M05.9 - Rheumatoid arthritis with rheumatoid factor, unspecified Assessment & Plan: Sees Dr. Brennan Martinez. DOes get infusions q6wks, unsure what drug. Code(s): M06.9 - RHEUMATOID ARTHRITIS, UNSPECIFIED (6) HTN (hypertension) Current Visit: Yes Status: Chronic Qualifiers: Hypertension type: essential hypertension Qualified Code(s): I10 - Essential (primary) hypertension Code(s): I10 - ESSENTIAL (PRIMARY) HYPERTENSION (7) Diabetes Current Visit: Yes Status: Chronic Qualifiers: Diabetes mellitus type: type 2 Diabetes mellitus mcc insulin use: without long wall shear operator use Diabetes mellitus complication status: without complication Qualified Code(s): E11.9 - Type 2 diabetes mellitus without complications Code(s): E11.9 - TYPE 2 DIABETES MELLITUS WITHOUT COMPLICATIONS (8) COPD (chronic obstructive pulmonary disease) Current Visit: Yes Status: Chronic Qualifiers: COPD type: unspecified COPD Qualified Code(s): J44.9 - Chronic obstructive pulmonary disease, unspecified Hospital Summary - Hospital Course Hospital Course: is a 54 year old female pt of Dr. Dawkins with COPD, HTN, DM, RA, bipolar, and anxiety who was admitted through ER with abd pain; found to have UTI and also a large R adnexal complex mass concerning for malignancy. Her d- dimer was also elevated but she was unable to have CTA to r/o PE due to her eGFR < 50. She was started on therapeutic dose of lovenox. CT abd/pelvis w/o contrast whoed R pelvic mass 14x13.5x15.5 cm - u/s measured mass at 13.3x9.4x9.7cm. WBC 26,600. Pt started having pain 4d ago suddenly in the evening, was 10/10 at home, now 7/ 10 with IV toradol. THe pain started in the lower abdomen and later localized to the right side. She last ate 4d ago but has been tring to drink; did have decreased urine output. Pt has known ventral and umbilical hernias and these have had increased pain this week as well. I anticipate pt will be transferred to tertiary care facility for further management of this possibly malignant mass. - Vitals & Intake/Output Vital Signs: Vital Signs Temperature 98.2 F 08/24/19 11:57 Pulse Rate 81 08/24/19 11:57 Respiratory Rate 20 08/24/19 11:57 Blood Pressure 114/62 08/24/19 11:57 O2 Sat by Pulse Oximetry 92 L 08/24/19 11:57 Intake & Output: Intake & Output 08/22/19 08/23/19 08/24/19 08/25/19 11:59 11:59 11:59 11:59 Weight 115.1 kg - Lab Result Diagrams: 08/23/19 23:33 08/23/19 23:33 Lab Results-Last 24 Hrs: Accuchecks Date 08/24/19 Time 11:56 Accucheck Value: 104 Accucheck Value: 104 Accucheck Value: 110 Lab Results-Last 24 Hours 08/23/19 08/23/19 08/23/19 Range/Units 00:30 00:38 23:33 WBC 26.6 H* (4.0-10.5) K/mm3 RBC 4.76 (4.1-5.4) M/mm3 Hgb 15.3 (12.0-16.0) gm/dl Hct 46.2 (35-47) % MCV 97.1 (78-100) fl MCH 32.1 H (26-32) pg MCHC 33.1 (32-36) g/dl RDW 14.2 H (11.5-14.0) % Plt Count 325 (150-450) K/mm3 MPV 9.8 (7.5-11.0) fl Segmented Neutrophils 80 H (36.0-66.0) % Lymphocytes (Manual) 16 L (24-44) % Monocytes (Manual) 4 (0.0-12.0) % Toxic Granulation 1+ Platelet Estimate NORMAL (NORMAL) RBC Morphology ABNORMAL Anisocytosis 1+ D-Dimer (215-500) ng/mL Sodium (137-145) mmol/L Potassium (3.5-5.1) mmol/L Chloride (98-107) mmol/L Carbon Dioxide (22-30) mmol/L Anion Gap (5-15) MEQ/L BUN (7-17) mg/dL Creatinine (0.52-1.04) mg/dL Estimated GFR ML/MIN Glucose (74-106) mg/dL Hemoglobin A1c (4.5-6.0) % Lactic Acid (0.4-2.0) Calcium (8.4-10.2) mg/dL Magnesium (1.6-2.3) mg/dL Total Bilirubin (0.2-1.3) mg/dL AST (14-36) U/L ALT (0-35) U/L Alkaline Phosphatase (38-126) U/L Troponin I (0.000-0.034) ng/mL NT-Pro-B Natriuret Pep (0-900) pg/mL Serum Total Protein (6.3-8.2) g/dL Albumin (3.5-5.0) g/dL Amylase (30-110) U/L Lipase (23-300) U/L Serum , Qual (Negative) Urine Color LARRY (YELLOW) Urine Appearance CLOUDY (CLEAR) Urine pH 5.0 (5-6) Ur Specific [place] 1.027 (1.005-1.025) Urine Protein 100 (Negative) Urine Ketones NEGATIVE (NEGATIVE) Urine Blood NEGATIVE (0-5) Lui/ul Urine Nitrite NEGATIVE (NEGATIVE) Urine Bilirubin MODERATE (NEGATIVE) Urine Urobilinogen 4 (0-1) mg/dL Ur Leukocyte Esterase SMALL (NEGATIVE) Urine WBC (Auto) 51-100 (0-5) /HPF Urine RBC (Auto) 6-10 (0-2) /HPF U Hyaline Cast (Auto) 6-10 (0-2) /LPF U Epithel Cells (Auto) PACKED (FEW) /HPF Urine Bacteria (Auto) MANY (NEGATIVE) /HPF U Non-Squamous Epi Cells RARE (FEW) /HPF Unidentified Crystals 25-50 (NEGATIVE) /HPF Other Casts (Auto) 25-50 (NEGATIVE) /LPF Urine Mucus (Auto) MANY (NEGATIVE) /HPF Urine Culture Reflexed YES (NO) Urine Glucose NEGATIVE (NEGATIVE) mg/dL Monoscreen (Negative) Influenza Type A Ag NEGATIVE (NEGATIVE) Influenza Type B Ag NEGATIVE (NEGATIVE) RSV (PCR) NEGATIVE (Negative) Group A Strep Antibody NOT DETECTED (NEGATIVE) 08/23/19 08/23/19 08/23/19 Range/Units 23:33 23:33 23:33 WBC (4.0-10.5) K/mm3 RBC (4.1-5.4) M/mm3 Hgb (12.0-16.0) gm/dl Hct (35-47) % MCV (78-100) fl MCH (26-32) pg MCHC (32-36) g/dl RDW (11.5-14.0) % Plt Count (150-450) K/mm3 MPV (7.5-11.0) fl Segmented Neutrophils (36.0-66.0) % Lymphocytes (Manual) (24-44) % Monocytes (Manual) (0.0-12.0) % Toxic Granulation Platelet Estimate (NORMAL) RBC Morphology Anisocytosis D-Dimer (215-500) ng/mL Sodium 138 (137-145) mmol/L Potassium 3.7 (3.5-5.1) mmol/L Chloride 98 (98-107) mmol/L Carbon Dioxide 27 (22-30) mmol/L Anion Gap 16.7 H (5-15) MEQ/L BUN 25 H (7-17) mg/dL Creatinine 1.30 H (0.52-1.04) mg/dL Estimated GFR 45.7 ML/MIN Glucose 145 H (74-106) mg/dL Hemoglobin A1c (4.5-6.0) % Lactic Acid (0.4-2.0) Calcium 10.3 H (8.4-10.2) mg/dL Magnesium 2.0 (1.6-2.3) mg/dL Total Bilirubin 1.80 H (0.2-1.3) mg/dL AST 21 (14-36) U/L ALT 24 (0-35) U/L Alkaline Phosphatase 88 (38-126) U/L Troponin I (0.000-0.034) ng/mL NT-Pro-B Natriuret Pep 110 (0-900) pg/mL Serum Total Protein 9.1 H (6.3-8.2) g/dL Albumin 4.5 (3.5-5.0) g/dL Amylase 85 (30-110) U/L Lipase 48 (23-300) U/L Serum , Qual NEGATIVE (Negative) Urine Color (YELLOW) Urine Appearance (CLEAR) Urine pH (5-6) Ur Specific [place] (1.005-1.025) Urine Protein (Negative) Urine Ketones (NEGATIVE) Urine Blood (0-5) Lui/ul Urine Nitrite (NEGATIVE) Urine Bilirubin (NEGATIVE) Urine Urobilinogen (0-1) mg/dL Ur Leukocyte Esterase (NEGATIVE) Urine WBC (Auto) (0-5) /HPF Urine RBC (Auto) (0-2) /HPF U Hyaline Cast (Auto) (0-2) /LPF U Epithel Cells (Auto) (FEW) /HPF Urine Bacteria (Auto) (NEGATIVE) /HPF U Non-Squamous Epi Cells (FEW) /HPF Unidentified Crystals (NEGATIVE) /HPF Other Casts (Auto) (NEGATIVE) /LPF Urine Mucus (Auto) (NEGATIVE) /HPF Urine Culture Reflexed (NO) Urine Glucose (NEGATIVE) mg/dL Monoscreen (Negative) Influenza Type A Ag (NEGATIVE) Influenza Type B Ag (NEGATIVE) RSV (PCR) (Negative) Group A Strep Antibody (NEGATIVE) 08/23/19 08/23/19 08/24/19 Range/Units 23:33 23:33 00:20 WBC (4.0-10.5) K/mm3 RBC (4.1-5.4) M/mm3 Hgb (12.0-16.0) gm/dl Hct (35-47) % MCV (78-100) fl MCH (26-32) pg MCHC (32-36) g/dl RDW (11.5-14.0) % Plt Count (150-450) K/mm3 MPV (7.5-11.0) fl Segmented Neutrophils (36.0-66.0) % Lymphocytes (Manual) (24-44) % Monocytes (Manual) (0.0-12.0) % Toxic Granulation Platelet Estimate (NORMAL) RBC Morphology Anisocytosis D-Dimer 1559 H* (215-500) ng/mL Sodium (137-145) mmol/L Potassium (3.5-5.1) mmol/L Chloride (98-107) mmol/L Carbon Dioxide (22-30) mmol/L Anion Gap (5-15) MEQ/L BUN (7-17) mg/dL Creatinine (0.52-1.04) mg/dL Estimated GFR ML/MIN Glucose (74-106) mg/dL Hemoglobin A1c (4.5-6.0) % Lactic Acid (0.4-2.0) Calcium (8.4-10.2) mg/dL Magnesium (1.6-2.3) mg/dL Total Bilirubin (0.2-1.3) mg/dL AST (14-36) U/L ALT (0-35) U/L Alkaline Phosphatase (38-126) U/L Troponin I < 0.012 (0.000-0.034) ng/mL NT-Pro-B Natriuret Pep (0-900) pg/mL Serum Total Protein (6.3-8.2) g/dL Albumin (3.5-5.0) g/dL Amylase (30-110) U/L Lipase (23-300) U/L Serum , Qual (Negative) Urine Color (YELLOW) Urine Appearance (CLEAR) Urine pH (5-6) Ur Specific [place] (1.005-1.025) Urine Protein (Negative) Urine Ketones (NEGATIVE) Urine Blood (0-5) Lui/ul Urine Nitrite (NEGATIVE) Urine Bilirubin (NEGATIVE) Urine Urobilinogen (0-1) mg/dL Ur Leukocyte Esterase (NEGATIVE) Urine WBC (Auto) (0-5) /HPF Urine RBC (Auto) (0-2) /HPF U Hyaline Cast (Auto) (0-2) /LPF U Epithel Cells (Auto) (FEW) /HPF Urine Bacteria (Auto) (NEGATIVE) /HPF U Non-Squamous Epi Cells (FEW) /HPF Unidentified Crystals (NEGATIVE) /HPF Other Casts (Auto) (NEGATIVE) /LPF Urine Mucus (Auto) (NEGATIVE) /HPF Urine Culture Reflexed (NO) Urine Glucose (NEGATIVE) mg/dL Monoscreen NEGATIVE (Negative) Influenza Type A Ag (NEGATIVE) Influenza Type B Ag (NEGATIVE) RSV (PCR) (Negative) Group A Strep Antibody (NEGATIVE) 08/24/19 08/24/19 08/24/19 Range/Units 03:10 03:55 05:45 WBC (4.0-10.5) K/mm3 RBC (4.1-5.4) M/mm3 Hgb (12.0-16.0) gm/dl Hct (35-47) % MCV (78-100) fl MCH (26-32) pg MCHC (32-36) g/dl RDW (11.5-14.0) % Plt Count (150-450) K/mm3 MPV (7.5-11.0) fl Segmented Neutrophils (36.0-66.0) % Lymphocytes (Manual) (24-44) % Monocytes (Manual) (0.0-12.0) % Toxic Granulation Platelet Estimate (NORMAL) RBC Morphology Anisocytosis D-Dimer (215-500) ng/mL Sodium (137-145) mmol/L Potassium (3.5-5.1) mmol/L Chloride (98-107) mmol/L Carbon Dioxide (22-30) mmol/L Anion Gap (5-15) MEQ/L BUN (7-17) mg/dL Creatinine (0.52-1.04) mg/dL Estimated GFR ML/MIN Glucose (74-106) mg/dL Hemoglobin A1c (4.5-6.0) % Lactic Acid 1.9 (0.4-2.0) Calcium (8.4-10.2) mg/dL Magnesium (1.6-2.3) mg/dL Total Bilirubin (0.2-1.3) mg/dL AST (14-36) U/L ALT (0-35) U/L Alkaline Phosphatase (38-126) U/L Troponin I < 0.012 < 0.012 (0.000-0.034) ng/mL NT-Pro-B Natriuret Pep (0-900) pg/mL Serum Total Protein (6.3-8.2) g/dL Albumin (3.5-5.0) g/dL Amylase (30-110) U/L Lipase (23-300) U/L Serum , Qual (Negative) Urine Color (YELLOW) Urine Appearance (CLEAR) Urine pH (5-6) Ur Specific [place] (1.005-1.025) Urine Protein (Negative) Urine Ketones (NEGATIVE) Urine Blood (0-5) Lui/ul Urine Nitrite (NEGATIVE) Urine Bilirubin (NEGATIVE) Urine Urobilinogen (0-1) mg/dL Ur Leukocyte Esterase (NEGATIVE) Urine WBC (Auto) (0-5) /HPF Urine RBC (Auto) (0-2) /HPF U Hyaline Cast (Auto) (0-2) /LPF U Epithel Cells (Auto) (FEW) /HPF Urine Bacteria (Auto) (NEGATIVE) /HPF U Non-Squamous Epi Cells (FEW) /HPF Unidentified Crystals (NEGATIVE) /HPF Other Casts (Auto) (NEGATIVE) /LPF Urine Mucus (Auto) (NEGATIVE) /HPF Urine Culture Reflexed (NO) Urine Glucose (NEGATIVE) mg/dL Monoscreen (Negative) Influenza Type A Ag (NEGATIVE) Influenza Type B Ag (NEGATIVE) RSV (PCR) (Negative) Group A Strep Antibody (NEGATIVE) 08/24/19 08/24/19 Range/Units 07:50 08:40 WBC (4.0-10.5) K/mm3 RBC (4.1-5.4) M/mm3 Hgb (12.0-16.0) gm/dl Hct (35-47) % MCV (78-100) fl MCH (26-32) pg MCHC (32-36) g/dl RDW (11.5-14.0) % Plt Count (150-450) K/mm3 MPV (7.5-11.0) fl Segmented Neutrophils (36.0-66.0) % Lymphocytes (Manual) (24-44) % Monocytes (Manual) (0.0-12.0) % Toxic Granulation Platelet Estimate (NORMAL) RBC Morphology Anisocytosis D-Dimer (215-500) ng/mL Sodium (137-145) mmol/L Potassium (3.5-5.1) mmol/L Chloride (98-107) mmol/L Carbon Dioxide (22-30) mmol/L Anion Gap (5-15) MEQ/L BUN (7-17) mg/dL Creatinine (0.52-1.04) mg/dL Estimated GFR ML/MIN Glucose (74-106) mg/dL Hemoglobin A1c 6.25 H (4.5-6.0) % Lactic Acid (0.4-2.0) Calcium (8.4-10.2) mg/dL Magnesium (1.6-2.3) mg/dL Total Bilirubin (0.2-1.3) mg/dL AST (14-36) U/L ALT (0-35) U/L Alkaline Phosphatase (38-126) U/L Troponin I < 0.012 (0.000-0.034) ng/mL NT-Pro-B Natriuret Pep (0-900) pg/mL Serum Total Protein (6.3-8.2) g/dL Albumin (3.5-5.0) g/dL Amylase (30-110) U/L Lipase (23-300) U/L Serum , Qual (Negative) Urine Color (YELLOW) Urine Appearance (CLEAR) Urine pH (5-6) Ur Specific [place] (1.005-1.025) Urine Protein (Negative) Urine Ketones (NEGATIVE) Urine Blood (0-5) Lui/ul Urine Nitrite (NEGATIVE) Urine Bilirubin (NEGATIVE) Urine Urobilinogen (0-1) mg/dL Ur Leukocyte Esterase (NEGATIVE) Urine WBC (Auto) (0-5) /HPF Urine RBC (Auto) (0-2) /HPF U Hyaline Cast (Auto) (0-2) /LPF U Epithel Cells (Auto) (FEW) /HPF Urine Bacteria (Auto) (NEGATIVE) /HPF U Non-Squamous Epi Cells (FEW) /HPF Unidentified Crystals (NEGATIVE) /HPF Other Casts (Auto) (NEGATIVE) /LPF Urine Mucus (Auto) (NEGATIVE) /HPF Urine Culture Reflexed (NO) Urine Glucose (NEGATIVE) mg/dL Monoscreen (Negative) Influenza Type A Ag (NEGATIVE) Influenza Type B Ag (NEGATIVE) RSV (PCR) (Negative) Group A Strep Antibody (NEGATIVE) Micro Results-Entire Visit: Accuchecks Date 08/24/19 Time 11:56 Accucheck Value: 104 Accucheck Value: 104 Accucheck Value: 110 - Radiology Exams Ordered Rad Exams-Entire Visit: Radiology Procedures Category Date Time Status ABDOMEN AND PELVIS W/0 CONTRAS [CT] Stat Exams 08/24/19 00:30 Completed CHEST 2 VIEWS (PA AND LAT) Stat Exams 08/24/19 00:30 Completed PELVIC [US] Stat Exams 08/24/19 01:43 Completed PULMONARY PERF VENTILATION [NUCMED] Stat Exams 08/24/19 04:08 Ordered - Procedures and Test Procedures and Tests throughout Hospitalization: Therapy Orders & Screens 08/24/19 00:23 Respiratory MDI STAT Comment: 08/24/19 00:24 Respiratory Therapy Assessment DAILY Comment: 08/24/19 04:08 Oxygen Nasal Cannula 2 lpm Comment: 08/24/19 06:09 BiPap/CPAP ROUTINE Comment: SET AT 12CM H2O, PT DOESN'T KNOW HER SETTING Diagnosis: ABD MASS, UTI, ELEVATED D-DIMER 08/24/19 07:00 Respiratory MDI BID Comment: Diagnosis: ABD MASS, UTI, ELEVATED D-DIMER - Discharge Disposition: Home, Self-Care Condition: Stable Prescriptions: No Action predniSONE [Prednisone] 5 mg PO BID clonazePAM [Clonazepam] 0.5 mg PO TID Methotrexate Sodium 2.5 mg [Trexall 2.5 mg] 15 mg PO WEEKLY Metformin HCl 500 mg PO BID Lisinopril/Hydrochlorothiazide [Lisinopril-Hctz 20-25 mg Tab] 20 - 25 mg PO DAILY Folic Acid 1 mg PO DAILY Fluticasone Propion/Salmeterol [Wixela 250-50 Inhub] 2 puffs PO BID Duloxetine HCl 30 mg PO DAILY Duloxetine HCl 60 mg PO DAILY Carvedilol 3.125 mg [Coreg 3.125 MG] 3.125 mg PO BID Albuterol Sulfate Mdi [Proair Hfa MDI] 8.5 gm IN QID PRN PRN Reason: COPD Follow up with: TATUM DAWKINS MD [Primary Care Provider] - 1 Week
[2019-08-24] MEDS: ROCEPHIN 1 Gm-D5w 50 ml Bag** 1 G/50 ML IVPB IV SCH (20:55)
[2019-08-25] MEDS: TORAdol 30 mg Injection IV PRN ×3 (04:40→20:42)
[2019-08-25 05:11] LABS: Absolute Neutrophil Ct (ANC) 13.32 (1.4-6.9); BASOPHIL % 0.3 % (0.0-0.4); Basophil (Absolute #) 0.05 (0-0.4); Eosinophil % 0.7 % (0.00-5.0); Eosinophil (Absolute #) 0.11 (0-0.5); Hematocrit 37.6 % (35-47); Hemoglobin 11.9 gm/dl (12.0-16.0); Lymphocyte (Absolute #) 1.61 (1.0-4.6); Mean Cell Volume 100.8 fl (78-100); Mean Corpuscular Hemoglobin 31.9 pg (26-32); Mean Corpuscular Hgb Concent. 31.6 g/dl (32-36); Mean Platelet Volume 9.2 fl (7.5-11.0); Monocyte (Absolute #) 1.07 (0.0-1.3); Monocytes % 6.6 % (0.0-12.0); Neutrophil % 82.4 % (36.0-66.0); Platelet Count 245 K/mm3 (150-450); Red Blood Count 3.73 M/mm3 (4.1-5.4); White Blood Count 16.2 K/mm3 (4.0-10.5)
[2019-08-25 05:23] LABS: ALBUMIN 3.5 g/dL (3.5-5.0); ALKALINE PHOSPHATASE 88 U/L (38-126); ANION GAP 9.2 MEQ/L (5-15); BLOOD UREA NITROGEN 22 mg/dL (7-17); CHLORIDE 105 mmol/L (98-107); Calcium 8.8 mg/dL (8.4-10.2); Carbon Dioxide 28 mmol/L (22-30); Creatinine 1 0.59 mg/dL (0.52-1.04); Glucose 120 mg/dL (74-106); Potassium 3.9 mmol/L (3.5-5.1); SGOT/AST 22 U/L (14-36); SGPT/ALT 23 U/L (0-35); SODIUM 139 mmol/L (137-145); Total Protein 7.3 g/dL (6.3-8.2)
[2019-08-25] MEDS: ENOXAPARIN SODIUM SQ SCH (07:37)
--- NOTE | 2019-08-25 08:12 | XRAY ---
Indication: Elevated d-dimer. Comparison: One day earlier. PA/lateral chest unchanged again hyperinflated and clear. Heart and mediastinal structures within normal limits. No new/acute findings.
--- NOTE | 2019-08-25 09:14 | PCM.NOTE ---
Date and Time: 08/25/19 0911 Subjective Assessment: patient notes great improvement in her pain, she is tolerating po intake. denies chest pain or shortness of breath Objective Exam General Appearance: no apparent distress, obese Neurologic Exam: alert, oriented x 3 Respiratory Exam: normal breath sounds, lungs clear, No respiratory distress Cardiovascular Exam: regular rate/rhythm, normal heart sounds Gastrointestinal/Abdomen Exam: soft, hernia (lower abdominal hernia, soft reducible), No tenderness, No mass, No guarding, No rebound Extremity Exam: normal inspection, normal range of motion OBJECTIVE DATA Vital Signs: Vital Signs - 24 hr Temp Pulse Resp BP Pulse Ox 08/25/19 06:52 97.7 F 58 L 18 121/74 98 08/25/19 04:00 98.3 F 62 18 112/71 100 08/25/19 00:00 54 L 93 L 08/24/19 21:15 64 20 93 L 08/24/19 18:55 97.8 F 69 20 92/48 94 L 08/24/19 16:00 99.1 F 74 20 102/50 97 08/24/19 11:57 98.2 F 81 20 114/62 92 L Oxygen-Last 24 hours Oxygen Flowrate (L/min)-RT 5 Pain Assessment - Last Documented Pain Intensity 3 Pain Scale Used 0-10 Pain Scale Intake and Output: Intake & Output 08/22/19 08/23/19 08/24/19 08/25/19 11:59 11:59 11:59 11:59 Intake Total 2734 Balance 2734 Weight 115.1 kg Lab Results: Accuchecks Date 08/25/19 Date 08/25/19 Date 08/25/19 Date 08/24/19 Date 08/24/19 Time 08:00 Time 04:00 Time 00:18 Time 20:18 Time 11:56 Accucheck Value: 100 Accucheck Value: 125 Accucheck Value: 129 Accucheck Value: 151 Accucheck Value: 158 Accucheck Value: 104 Accucheck Value: 104 Lab Results-Last 24 Hours 08/24/19 08/24/19 08/24/19 Range/Units 07:50 08:40 11:45 WBC (4.0-10.5) K/mm3 RBC (4.1-5.4) M/mm3 Hgb (12.0-16.0) gm/dl Hct (35-47) % MCV (78-100) fl MCH (26-32) pg MCHC (32-36) g/dl RDW (11.5-14.0) % Plt Count (150-450) K/mm3 MPV (7.5-11.0) fl Gran % (36.0-66.0) % Eos # (Auto) (0-0.5) Absolute Lymphs (auto) (1.0-4.6) Absolute Monos (auto) (0.0-1.3) Lymphocytes % (24.0-44.0) % Monocytes % (0.0-12.0) % Eosinophils % (0.00-5.0) % Basophils % (0.0-0.4) % Absolute Granulocytes (1.4-6.9) Basophils # (0-0.4) Sodium (137-145) mmol/L Potassium (3.5-5.1) mmol/L Chloride (98-107) mmol/L Carbon Dioxide (22-30) mmol/L Anion Gap (5-15) MEQ/L BUN (7-17) mg/dL Creatinine (0.52-1.04) mg/dL Estimated GFR ML/MIN Glucose (74-106) mg/dL Hemoglobin A1c 6.25 H (4.5-6.0) % Lactic Acid (0.4-2.0) Calcium (8.4-10.2) mg/dL Total Bilirubin (0.2-1.3) mg/dL AST (14-36) U/L ALT (0-35) U/L Alkaline Phosphatase (38-126) U/L Troponin I < 0.012 < 0.012 (0.000-0.034) ng/mL Serum Total Protein (6.3-8.2) g/dL Albumin (3.5-5.0) g/dL 08/25/19 08/25/19 08/25/19 Range/Units 05:00 05:07 05:07 WBC 16.2 H (4.0-10.5) K/mm3 RBC 3.73 L (4.1-5.4) M/mm3 Hgb 11.9 L D (12.0-16.0) gm/dl Hct 37.6 (35-47) % MCV 100.8 H (78-100) fl MCH 31.9 (26-32) pg MCHC 31.6 L (32-36) g/dl RDW 14.0 (11.5-14.0) % Plt Count 245 (150-450) K/mm3 MPV 9.2 (7.5-11.0) fl Gran % 82.4 H (36.0-66.0) % Eos # (Auto) 0.11 (0-0.5) Absolute Lymphs (auto) 1.61 (1.0-4.6) Absolute Monos (auto) 1.07 (0.0-1.3) Lymphocytes % 10.0 L (24.0-44.0) % Monocytes % 6.6 (0.0-12.0) % Eosinophils % 0.7 (0.00-5.0) % Basophils % 0.3 (0.0-0.4) % Absolute Granulocytes 13.32 H (1.4-6.9) Basophils # 0.05 (0-0.4) Sodium 139 (137-145) mmol/L Potassium 3.9 (3.5-5.1) mmol/L Chloride 105 (98-107) mmol/L Carbon Dioxide 28 (22-30) mmol/L Anion Gap 9.2 (5-15) MEQ/L BUN 22 H (7-17) mg/dL Creatinine 0.59 (0.52-1.04) mg/dL Estimated GFR > 60.0 ML/MIN Glucose 120 H (74-106) mg/dL Hemoglobin A1c (4.5-6.0) % Lactic Acid 0.7 (0.4-2.0) Calcium 8.8 (8.4-10.2) mg/dL Total Bilirubin 0.70 (0.2-1.3) mg/dL AST 22 (14-36) U/L ALT 23 (0-35) U/L Alkaline Phosphatase 88 (38-126) U/L Troponin I (0.000-0.034) ng/mL Serum Total Protein 7.3 (6.3-8.2) g/dL Albumin 3.5 (3.5-5.0) g/dL Radiology Exams: Radiology Procedures Category Date Time Status ABDOMEN AND PELVIS W/0 CONTRAS [CT] Stat Exams 08/24/19 00:30 Completed CHEST 2 VIEWS (PA AND LAT) Stat Exams 08/24/19 00:30 Completed CHEST 2 VIEWS (PA AND LAT) Urgent Exams 08/25/19 08:02 Completed PELVIC [US] Stat Exams 08/24/19 01:43 Completed PULMONARY PERF VENTILATION [NUCMED] Stat Exams 08/25/19 07:42 Ordered Assessment/Plan (1) UTI (urinary tract infection) Current Visit: Yes Status: Acute Qualifiers: Urinary tract infection type: acute cystitis Hematuria presence: with hematuria Qualified Code(s): N30.01 - Acute cystitis with hematuria Assessment & Plan: culture pending, on rocephin. wbc improving and clinically improving. with allergies po abx may be a challenge so will await c and s prior to discharge Code(s): N39.0 - URINARY TRACT INFECTION, SITE NOT SPECIFIED (2) Abdominal mass Current Visit: Yes Status: Acute Qualifiers: Abdominal location: right lower quadrant Qualified Code(s): R19.03 - Right lower quadrant abdominal swelling, mass and lump Assessment & Plan: plan for outpatient executive creative director/onc referral Code(s): R19.00 - INTRA-ABD AND PELVIC SWELLING, MASS AND LUMP, UNSP SITE (3) Acute renal insufficiency Current Visit: Yes Status: Acute Assessment & Plan: resolved with hydration Code(s): N28.9 - DISORDER OF KIDNEY AND URETER, UNSPECIFIED (4) D-dimer, elevated Current Visit: Yes Status: Acute Assessment & Plan: awaiting v/q results, currently on therapeutic lovenox Code(s): R79.89 - OTHER SPECIFIED ABNORMAL FINDINGS OF BLOOD CHEMISTRY
--- NOTE | 2019-08-25 09:46 | XRAY ---
Indication: Short of breath, chest pain, and elevated d-dimer. COPD/emphysema. Comparison: None Patient received 5.3 mCi technetium 99 MAA for the perfusion portion of the exam. Patient inhaled 35.6 mCi aerosolized technetium 99 DTPA for the ventilation portion of the exam. Multiple planar images obtained. Perfusion images demonstrates homogeneous radiopharmaceutical activity bilaterally. No segmental/subsegmental perfusion defects. Ventilation images also demonstrates radiopharmaceutical activity bilaterally, predominantly more central favoring chronic obstructive disease. Impression: 1. No perfusion defects. PIOPED criteria for pulmonary embolus is normal. 2. Ventilation images demonstrate scintigraphic features favoring chronic obstructive disease.
[2019-08-25] MEDS: Coreg 3.125 MG PO SCH ×2 (09:48→21:02)
[2019-08-25] MEDS: Klonopin 0.5 MG PO SCH ×3 (09:48→21:02)
[2019-08-25] MEDS: Cymbalta 30 MG Capsule PO SCH (09:48)
[2019-08-25] MEDS: DELTASONE 5 MG PO SCH ×2 (09:48→21:02)
[2019-08-25] MEDS: FOLATE 1 MG PO SCH (09:48)
[2019-08-25] MEDS: Advair Hfa 115/21 Common canister IH SCH ×2 (10:15→20:58)
[2019-08-25] MEDS: Sodium Chloride 0.9% 1000 ML 1,000 ML IV SCH ×2 (10:43→20:41)
[2019-08-25] MEDS ORDERED: HUMALOG SQ PRN (11:20)
[2019-08-25] MEDS: ROCEPHIN 1 Gm-D5w 50 ml Bag** 1 G/50 ML IVPB IV SCH (21:03)
[2019-08-26] MEDS: TORAdol 30 mg Injection IV PRN (03:58)
[2019-08-26 05:28] LABS: Absolute Neutrophil Ct (ANC) 10.31 (1.4-6.9); BASOPHIL % 0.3 % (0.0-0.4); Basophil (Absolute #) 0.04 (0-0.4); Eosinophil (Absolute #) 0.13 (0-0.5); Hematocrit 36.7 % (35-47); Hemoglobin 11.6 gm/dl (12.0-16.0); Lymphocyte (Absolute #) 1.81 (1.0-4.6); Lymphocytes % 13.4 % (24.0-44.0); Mean Cell Volume 101.4 fl (78-100); Mean Corpuscular Hgb Concent. 31.6 g/dl (32-36); Mean Platelet Volume 9.9 fl (7.5-11.0); Monocyte (Absolute #) 1.23 (0.0-1.3); Monocytes % 9.1 % (0.0-12.0); Neutrophil % 76.2 % (36.0-66.0); Platelet Count 272 K/mm3 (150-450); Red Blood Count 3.62 M/mm3 (4.1-5.4); White Blood Count 13.5 K/mm3 (4.0-10.5)
[2019-08-26 05:46] LABS: BLOOD UREA NITROGEN 24 mg/dL (7-17); CHLORIDE 106 mmol/L (98-107); Calcium 8.8 mg/dL (8.4-10.2); Carbon Dioxide 28 mmol/L (22-30); Creatinine 1 0.64 mg/dL (0.52-1.04); Glucose 110 mg/dL (74-106); Potassium 4.1 mmol/L (3.5-5.1); SODIUM 140 mmol/L (137-145)
[2019-08-26 06:53] LABS: CA 125 10.8 U/mL (0.0-35.0); CARCINOEMBRYONIC ANTIGEN 3.6 ng/mL (0.0-3.1)
[2019-08-26] MEDS: Sodium Chloride 0.9% 1000 ML 1,000 ML IV SCH (07:01)
[2019-08-26] MEDS: Advair Hfa 115/21 Common canister IH SCH (08:06)
--- NOTE | 2019-08-26 09:52 | PCM.DS ---
Discharge Summary Date of Admission: 08/24/19 04:29 Admitting Physician: YAW LAUREANO Consults: Consults on Case 08/24/19 04:08 Consult Surgery ROUTINE Primary Care Provider: TATUM DAWKINS Allergies Allergies amoxicillin [Amoxicillin] Allergy (Severe, Verified 08/24/19 05:23) Rash aripiprazole [From Abilify] Allergy (Severe, Verified 08/24/19 05:23) Swelling Confusion metronidazole [From Flagyl] Allergy (Severe, Verified 08/24/19 05:23) Rash Boil Rash Metronidazole HCl [From Flagyl] Allergy (Severe, Verified 08/24/19 05:23) Rash Boil Rash Penicillins Allergy (Severe, Verified 08/24/19 05:23) Rash Boil Rash quetiapine fumarate [From Seroquel] Allergy (Severe, Verified 08/24/19 05:23) Swelling Confusion azithromycin [From Zithromax] Allergy (Mild, Verified 08/24/19 05:23) codeine [Codeine] Allergy (Mild, Verified 08/24/19 05:23) Nausea Pt states that the room is spinning trazodone Adverse Reaction (Mild, Verified 08/24/19 05:23) Pt states that she was blind for a few 3-4 seconds Hospital Summary - Hospital Course Hospital Course: is a 54 year old female pt of Dr. Dawkins with COPD, HTN, DM, RA, bipolar, and anxiety who was admitted through ER with abd pain; found to have UTI and also a large R adnexal complex mass concerning for malignancy. Her d- dimer was also elevated but she was unable to have CTA to r/o PE due to her eGFR < 50. She was on therapeutic lovenox until VQ scan yesterday was normal, then changed to prophylactic dosing. WBC 26,600 initially; down to 13,500 today. She has been on IV rocephin for the UTI. Has been taking toradol for pain; currently pain is 3/10, gets up to 5/10 without pain meds. UCx showed Klebsiella pneumoniae, [facility]-susceptible, so she will be sent home on po keflex to finish a total 7d course of antibiotics. CT abd/pelvis w/o contrast showed R pelvic mass 14x13.5x15.5 cm - u/s measured mass at 13.3x9.4x9.7cm. Dr. Dowell consulted, thank you, and is concerned for malignancy. She will be seeing [facility] snapper-onc in [place] outpatient. - Vitals & Intake/Output Vital Signs: Vital Signs Temperature 98.5 F 08/26/19 02:00 Pulse Rate 59 L 08/26/19 02:00 Respiratory Rate 18 08/26/19 02:00 Blood Pressure 134/61 08/26/19 02:00 O2 Sat by Pulse Oximetry 98 08/26/19 02:00 Intake & Output: Intake & Output 08/23/19 08/24/19 08/25/19 08/26/19 11:59 11:59 11:59 11:59 Intake Total 2974 1689 Balance 2974 1689 Weight 115.1 kg 118.3 kg 118 kg - Lab Result Diagrams: 08/26/19 04:43 08/26/19 04:43 Lab Results-Last 24 Hrs: Accuchecks Date 08/26/19 Date 08/25/19 Date 08/25/19 Date 08/25/19 Date 08/25/19 Date 08/25/19 Time 05:00 Time 04:00 Time 23:50 Time 20:30 Time 16:00 Time 12:00 Accucheck Value: 114 Accucheck Value: 114 Accucheck Value: 154 Accucheck Value: 113 Accucheck Value: 194 Accucheck Value: 100 Lab Results-Last 24 Hours 08/24/19 08/26/19 08/26/19 Range/Units Unknown 04:43 04:43 WBC 13.5 H (4.0-10.5) K/mm3 RBC 3.62 L (4.1-5.4) M/mm3 Hgb 11.6 L (12.0-16.0) gm/dl Hct 36.7 (35-47) % MCV 101.4 H (78-100) fl MCH 32.0 (26-32) pg MCHC 31.6 L (32-36) g/dl RDW 14.0 (11.5-14.0) % Plt Count 272 (150-450) K/mm3 MPV 9.9 (7.5-11.0) fl Gran % 76.2 H (36.0-66.0) % Eos # (Auto) 0.13 (0-0.5) Absolute Lymphs (auto) 1.81 (1.0-4.6) Absolute Monos (auto) 1.23 (0.0-1.3) Lymphocytes % 13.4 L (24.0-44.0) % Monocytes % 9.1 (0.0-12.0) % Eosinophils % 1.0 (0.00-5.0) % Basophils % 0.3 (0.0-0.4) % Absolute Granulocytes 10.31 H (1.4-6.9) Basophils # 0.04 (0-0.4) Sodium 140 (137-145) mmol/L Potassium 4.1 (3.5-5.1) mmol/L Chloride 106 (98-107) mmol/L Carbon Dioxide 28 (22-30) mmol/L Anion Gap 11.0 (5-15) MEQ/L BUN 24 H (7-17) mg/dL Creatinine 0.64 (0.52-1.04) mg/dL Estimated GFR > 60.0 ML/MIN Glucose 110 H (74-106) mg/dL Calcium 8.8 (8.4-10.2) mg/dL Carcinoembryonic Ag 3.6 H (0.0-3.1) ng/mL CA 125 Antigen 10.8 (0.0-35.0) U/mL Micro Results-Entire Visit: Microbiology 08/23/19 00:30 Urine Culture - Final Clean Catch Midstream Klebsiella Pneumoniae 08/24/19 00:32 Blood Culture - Preliminary Blood NO GROWTH TO DATE 08/24/19 00:28 Blood Culture - Preliminary Blood NO GROWTH TO DATE Accuchecks Date 08/26/19 Date 08/25/19 Date 08/25/19 Date 08/25/19 Date 08/25/19 Date 08/25/19 Time 05:00 Time 04:00 Time 23:50 Time 20:30 Time 16:00 Time 12:00 Accucheck Value: 114 Accucheck Value: 114 Accucheck Value: 154 Accucheck Value: 113 Accucheck Value: 194 Accucheck Value: 100 - Radiology Exams Ordered Rad Exams-Entire Visit: Radiology Procedures Category Date Time Status CHEST 2 VIEWS (PA AND LAT) Urgent Exams 08/25/19 08:02 Completed PULMONARY PERF VENTILATION [NUCMED] Stat Exams 08/25/19 07:42 Completed - Procedures and Test Procedures and Tests throughout Hospitalization: Therapy Orders & Screens 08/24/19 00:23 Respiratory MDI STAT Comment: 08/24/19 00:24 Respiratory Therapy Assessment DAILY Comment: 08/24/19 04:08 Oxygen Nasal Cannula 2 lpm Comment: 08/24/19 06:09 BiPap/CPAP ROUTINE Comment: SET AT 12CM H2O, PT DOESN'T KNOW HER SETTING Diagnosis: ABD MASS, UTI, ELEVATED D-DIMER 08/24/19 21:54 Respiratory Therapy Assessment DAILY Comment: Diagnosis: ABD MASS, UTI, ELEVATED D-DIMER Discharge Exam General Appearance: no apparent distress, obese Neurologic Exam: alert, oriented x 3, cooperative Eye Exam: eyes nml inspection Ears, Nose, Throat Exam: moist mucous membranes Respiratory Exam: normal breath sounds, lungs clear, No crackles/rales, No rhonchi, No wheezing Cardiovascular Exam: regular rate/rhythm, normal heart sounds (distant), No murmur Gastrointestinal/Abdomen Exam: soft, normal bowel sounds, tenderness (suprapubic ), No distention (obese), No mass, No guarding, No rebound Back Exam: normal inspection, No rash Extremity Exam: normal inspection, No pedal edema, No swelling Skin Exam: normal color, warm, dry, No rash Final Diagnosis/Problem List - Final Discharge Diagnosis/Problem (1) Abdominal mass Current Visit: Yes Status: Acute Assessment & Plan: Concerning for malignancy; will follow up with [facility]-onc outpatient. Code(s): R19.00 - INTRA-ABD AND PELVIC SWELLING, MASS AND LUMP, UNSP SITE (2) UTI (urinary tract infection) Current Visit: Yes Status: Acute Assessment & Plan: Day #2 of rocephin completed yesterday; send home today on keflex x 5d. Will not give today's dose rocephin as it's not due until evening. Code(s): N39.0 - URINARY TRACT INFECTION, SITE NOT SPECIFIED (3) D-dimer, elevated Current Visit: Yes Status: Acute Assessment & Plan: PE ruled out via VQ scan. Code(s): R79.89 - OTHER SPECIFIED ABNORMAL FINDINGS OF BLOOD CHEMISTRY (4) Acute renal insufficiency Current Visit: Yes Status: Resolved Code(s): N28.9 - DISORDER OF KIDNEY AND URETER, UNSPECIFIED (5) Rheumatoid arthritis Current Visit: Yes Status: Chronic Code(s): M06.9 - RHEUMATOID ARTHRITIS, UNSPECIFIED (6) HTN (hypertension) Current Visit: Yes Status: Chronic Code(s): I10 - ESSENTIAL (PRIMARY) HYPERTENSION (7) Diabetes Current Visit: Yes Status: Chronic Code(s): E11.9 - TYPE 2 DIABETES MELLITUS WITHOUT COMPLICATIONS (8) COPD (chronic obstructive pulmonary disease) Current Visit: Yes Status: Chronic - Discharge Disposition: Home, Self-Care Condition: Good Prescriptions: New Cephalexin Mh 500 mg [Keflex 500 mg] 500 mg PO QID #20 capsule Ketorolac Tromethamine [Toradol] 10 mg PO QID PRN #12 tablet PRN Reason: Pain Continue predniSONE [Prednisone] 5 mg PO BID clonazePAM [Clonazepam] 0.5 mg PO TID Methotrexate Sodium 2.5 mg [Trexall 2.5 mg] 15 mg PO WEEKLY Metformin HCl 500 mg PO BID Lisinopril/Hydrochlorothiazide [Lisinopril-Hctz 20-25 mg Tab] 20 - 25 mg PO DAILY Folic Acid 1 mg PO DAILY Fluticasone Propion/Salmeterol [Wixela 250-50 Inhub] 2 puffs PO BID Duloxetine HCl 30 mg PO DAILY Duloxetine HCl 60 mg PO DAILY Carvedilol 3.125 mg [Coreg 3.125 MG] 3.125 mg PO BID Albuterol Sulfate Mdi [Proair Hfa MDI] 8.5 gm IN QID PRN PRN Reason: COPD Follow up with: TATUM DAWKINS MD [Primary Care Provider] - 1 Week
[2019-08-26] MEDS ORDERED: ENOXAPARIN SODIUM SQ SCH (10:00)
[2019-08-26] MEDS: Coreg 3.125 MG PO SCH (10:54)
[2019-08-26] MEDS: Cymbalta 30 MG Capsule PO SCH (10:54)
[2019-08-26] MEDS: FOLATE 1 MG PO SCH (10:54)
[2019-08-26] MEDS: DELTASONE 5 MG PO SCH (10:54)
[2019-08-26] MEDS: Klonopin 0.5 MG PO SCH (10:54)
[2019-08-26 12:00] VITALS: BP 179/81; PULSE 83; O2SAT 93
== END 2019-08-26 11:57 | disposition home or self-care (01) ==
LOC: ED 22:41 → MED SURG 08-24 04:29
PROVIDERS: ADMIT Family Medicine; ATTEND Family Medicine
DX: R19.00 Intra-abdominal and pelvic swelling, mass and lump, unspecified site (principal); N39.0 Urinary tract infection, site not specified; B96.1 Klebsiella pneumoniae [K. pneumoniae] as the cause of diseases classified elsewhere; R79.1 Abnormal coagulation profile; N28.9 Disorder of kidney and ureter, unspecified; R42 Dizziness and giddiness; M06.9 Rheumatoid arthritis, unspecified; E11.9 Type 2 diabetes mellitus without complications; J44.9 Chronic obstructive pulmonary disease, unspecified; I10 Essential (primary) hypertension; F31.9 Bipolar disorder, unspecified; F41.9 Anxiety disorder, unspecified; Z79.899 Other long term (current) drug therapy
CPT/HCPCS: 36000; 36415; 71046; 74176; 76856; 78582; 80048; 80053; 81001; 81025; 82150; 82378; 82962; 83036; 83605; 83690; 83735; 83880; 84484; 85025; 85379; 86304; 86308; 87040; 87077; 87086; 87186; 87631; 87651; 93005; 93268; 94640; 94660; 94760; 94762; 96365; 96374; 96375; 99285; A9540; A9567; G0378; 99219; 99224; J0696; J1650; J1885; J2405; J3010; A9270-GY

== ENCOUNTER 2020-01-22 17:31 | Observation (INO) | payer MEDICARE ==
[2020-01-22 17:59] LABS: A-aADO2 39; ABG HEMOGLOBIN 13.5; ABG POTASSIUM 3.9 (3.5-5.1); ARTERIAL BLD GAS O2 SATURATION 98.5 % (95-100); ARTERIAL BLOOD GAS BASE EXCESS 11.2 (-2.0-2.0); ARTERIAL BLOOD GAS FIO2 28 %; ARTERIAL BLOOD GAS PCO2 46 mmHg (35-45); ARTERIAL BLOOD GAS PO2 103 mmHg (75-100); HCO3- 35.9 (22-28); HGB O2 SAT 90.6 g/dF (94-100); Methhemoglobin 0.9 % (1.4-1.5); paO2 pAO1 0.73
[2020-01-22 18:00] LABS: ABG SITE RIGHT RADIAL; ALLEN TEST OK? YES; CARBOXYHEMOGLOBIN 7.2 % THgb (0.0-6.9)
--- NOTE | 2020-01-22 18:07 | ERPHSYRPT ---
- History of Present Illness Time Seen by Provider: 01/22/20 17:40 Exam Limitations: no limitations Patient Subjective Stated Complaint: SOB Triage Nursing Assessment: pt to ED c/o SOB x 4 days, worsening today. hx COPD, does not wear home O2 and states she has hard time lying flat. denies COVID exposure, has been staying home. denies fever or new cough, daily smoker. st arted cold meds yesterday with some relief of sx. Physician History: Patient is a 54-year-old female who presents to our ED with complaints of shortness of breath that has been progressively worsening over the past 4 days. Shortness of breath got progressively worse yesterday. Patient states that she experiences profound shortness of breath while lying flat. Patient has a history of COPD and is currently on prednisone. Patient also has a history of arthritis and is currently on methotrexate daily as well as Inflectra infusions once every 6 weeks. Patient is a smoker. She admits that her lower extremities have been swelling progressively. However she attributes this to taking [id number] cold medication. Patient advised that she has a history of ovarian mass and is currently scheduled to have surgery on of this month. Patient symptoms have been progressive. Symptoms are moderate in intensity. Lying flat worsens symptomology. No associated fever. Patient denies chest pain. No nausea vomiting or diaphoresis. Patient voices no other complaints concerns at this time. Timing/Duration: day(s) (Days ago) Activities at Onset: rest Severity of Dyspnea-Max: moderate Severity of Dyspnea-Current: mild Possible Cause: no prior episodes (Patient denies COVID exposure.) Modifying Factors: Improves With: oxygen (Patient appeared to be in mild respiratory distress upon evaluation. Oxygen applied. Patient does not require oxygen normally.) Associated Symptoms: constant, ankle swelling, No cough, No chest pain/discomfort, No fever, No insomnia, No calf pain, No dizziness, No heart racing Allergies/Adverse Reactions: amoxicillin [Amoxicillin] Allergy (Severe, Verified 01/22/20 19:26) Rash aripiprazole [From Abilify] Allergy (Severe, Verified 01/22/20 19:26) Swelling Confusion metronidazole [From Flagyl] Allergy (Severe, Verified 01/22/20 19:26) Rash Boil Rash Metronidazole HCl [From Flagyl] Allergy (Severe, Verified 01/22/20 19:26) Rash Boil Rash Penicillins Allergy (Severe, Verified 01/22/20 19:26) Rash Boil Rash quetiapine fumarate [From Seroquel] Allergy (Severe, Verified 01/22/20 19:26) Swelling Confusion azithromycin [From Zithromax] Allergy (Mild, Verified 01/22/20 19:26) codeine [Codeine] Allergy (Mild, Verified 01/22/20 19:26) Nausea Pt states that the room is spinning trazodone Adverse Reaction (Mild, Verified 01/22/20 19:26) Pt states that she was blind for a few 3-4 seconds Home Medications: Albuterol Sulfate Mdi [Proair Hfa MDI] 8.5 gm IN QID PRN 08/23/19 [History] Carvedilol 3.125 mg [Coreg 3.125 MG] 3.125 mg PO BID 08/23/19 [History] Duloxetine HCl 30 mg PO DAILY 08/23/19 [History] Duloxetine HCl 60 mg PO DAILY 08/23/19 [History] Fluticasone Propion/Salmeterol [Wixela 250-50 Inhub] 1 puffs PO BID 08/23/19 [History] Lisinopril/Hydrochlorothiazide [Lisinopril-Hctz 20-25 mg Tab] 20 - 25 mg PO DAILY 08/23/19 [History] Metformin HCl 500 mg PO BID 08/23/19 [History] Methotrexate Sodium 2.5 mg [Trexall 2.5 mg] 15 mg PO WEEKLY 08/23/19 [History] clonazePAM [Clonazepam] 0.5 mg PO TID 08/23/19 [History] predniSONE [Prednisone] 5 mg PO BID 08/23/19 [History] Hx Tetanus, Diphtheria Vaccination/Date Given: No Hx Influenza Vaccination/Date Given: No Hx Pneumococcal Vaccination/Date Given: No Immunizations Up to Date: No Travel Risk - International Travel Have you traveled outside of the country in past 3 weeks: No - Coronavirus Screening Are you exhibiting any of the following symptoms?: Yes Symptoms: Shortness of Breath Close contact with a COVID-19 positive Pt in past 14-21 Days: No - Review of Systems Constitutional: No Symptoms, No Fever, No Chills Eyes: No Symptoms Ears, Nose, & Throat: No Symptoms Respiratory: No Symptoms, No Cough, No Dyspnea Cardiac: No Symptoms, No Chest Pain, No Edema, No Syncope Abdominal/Gastrointestinal: No Symptoms, No Abdominal Pain, No Nausea, No Vomiting, No Diarrhea Genitourinary Symptoms: No Symptoms, No Dysuria Musculoskeletal: No Symptoms, No Back Pain, No Neck Pain Skin: No Symptoms, No Rash Neurological: No Symptoms, No Dizziness, No Focal Weakness, No Sensory Changes Psychological: No Symptoms Endocrine: No Symptoms Hematologic/Lymphatic: No Symptoms Immunological/Allergic: No Symptoms All Other Systems: Reviewed and Negative - Past Medical History Pertinent Past Medical History: Yes Neurological History: No Pertinent History ENT History: No Pertinent History Cardiac History: Hypertension Respiratory History: Bronchitis, COPD, Other Endocrine Medical History: Diabetes Type II Musculoskeletal History: Rheumatoid Arthritis GI Medical History: No Pertinent History History: No Pertinent History Psycho-Social History: Anxiety, Bipolar, Depression Female Reproductive Disorders: Cervical Cancer - Past Surgical History Past Surgical History: Yes Neuro Surgical History: No Pertinent History Cardiac: No Pertinent History Respiratory: No Pertinent History Gastrointestinal: No Pertinent History Genitourinary: No Pertinent History Musculoskeletal: Orthopedic Surgery Female Surgical History: Tubal Ligation Other Surgical History: ankle. LT KNEE DRAINED, WASHED - Social History Smoking Status: Current every day smoker How long have you smoked: 30 years Exposure to second hand smoke: No Drug Use: none Patient Lives Alone: No - Nursing Vital Signs Nursing Vital Signs: Initial Vital Signs Temperature 98.1 F 01/22/20 17:32 Pulse Rate 66 01/22/20 17:32 Respiratory Rate 19 01/22/20 17:32 Blood Pressure 164/98 01/22/20 17:32 O2 Sat by Pulse Oximetry 98 01/22/20 17:32 Pain Scale Pain Intensity 0 - Physical Exam General Appearance: no apparent distress, alert Eye Exam: PERRL/EOMI Neck Exam: normal inspection, supple Respiratory Exam: lungs clear, respiratory distress, diminished breath sounds, No crackles/rales, No wheezing Cardiovascular/Chest Exam: normal heart sounds, regular rate/rhythm Abdominal/Gastrointestinal Exam: soft, No tenderness, No distention, No mass Extremity Exam: non-tender, normal range of motion, normal inspection, no calf tenderness, no pedal edema Neurologic Exam: alert, oriented x 3, cooperative, 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 Mild emphysema, minimal fibrosis/scarring, calcified granulomas fatty liver) Ordered Tests: Active Orders 24 hr Category Date Time Status Water Softener Servicer STAT Care 01/22/20 17:39 Active EKG-ER Only STAT Care 01/22/20 17:37 Active IV Insertion STAT Care 01/22/20 17:37 Active Pulse Oximetry (ED) STAT Care 01/22/20 17:37 Active CHEST 1 VIEW (PORTABLE) Stat Exams 01/22/20 17:39 Taken CHEST WITH CONTRAST [CT] Stat Exams 01/22/20 18:33 Taken ABG [ARTERIAL BLOOD GASES] Stat Lab 01/22/20 17:50 Completed ARTERIAL BLOOD GASES AM.LAB Lab 01/23/20 04:00 Ordered BLOOD CULTURE Stat Lab 01/22/20 18:04 Received CBC W DIFF Stat Lab 01/22/20 18:03 Completed CMP Stat Lab 01/22/20 18:03 Completed D-DIMER QUANTITATIVE Stat Lab 01/22/20 18:03 Completed Lactic Acid Stat Lab 01/22/20 17:50 Completed MAGNESIUM Stat Lab 01/22/20 18:03 Completed NT PRO BNP Stat Lab 01/22/20 18:03 Completed TROPONIN Q3H Lab 01/22/20 18:04 Completed TROPONIN Q3H Lab 01/22/20 20:51 Completed TROPONIN Q3H Lab 01/22/20 23:45 Ordered TROPONIN Q3H Lab 01/23/20 02:45 Ordered TROPONIN Q3H Lab 01/23/20 05:45 Ordered UA W/RFX UR CULTURE Stat Lab 01/22/20 18:45 Completed Transfer Order Routine Transfer 01/22/20 Ordered Medication Summary Generic Name Dose Route Start Last Admin Trade Name Freq PRN Reason Stop Dose Admin Doxycycline Hyclate 100 mg/ 100 mls @ 100 mls/hr 01/22/20 22:00 01/22/20 21:50 Dextrose IV 02/21/20 21:59 100 mls/hr Q12HT ISABEL Administration Discontinued Medications Generic Name Dose Route Start Last Admin Trade Name Samuel PRN Reason Stop Dose Admin Doxycycline Hyclate Confirm 01/22/20 21:34 Vibramycin 100 Mg Administered 01/22/20 21:35 Dose 100 mg IV .STK-MED ONE Doxycycline Hyclate Confirm 01/22/20 21:43 Vibramycin 100 Mg Administered 01/22/20 21:44 Dose 100 mg IV .STK-MED ONE Sodium Chloride Confirm 01/22/20 21:34 Sodium Chloride 100ml Mini-Bag Plus Administered 01/22/20 21:35 Dose 100 mls @ ud IV .STK-MED ONE Dextrose Confirm 01/22/20 21:44 D5w 100ml Mini Bag 100 Ml Administered 01/22/20 21:45 Dose 100 mls @ ud IV .STK-MED ONE Dextrose Confirm 01/22/20 21:53 D5w 100ml Mini Bag 100 Ml Administered 01/22/20 21:54 Dose 100 mls @ ud IV .STK-MED ONE Methylprednisolone Sodium Succinate 125 mg 01/22/20 21:26 01/22/20 21:39 Solu-Medrol 125 Mg IV 01/22/20 21:27 125 mg STAT ONE Administration Methylprednisolone Sodium Succinate Confirm 01/22/20 21:33 Solu-Medrol 125 Mg Administered 01/22/20 21:34 Dose 125 mg .ROUTE .STK-MED ONE Lab/Rad Data: Laboratory Result Diagrams 01/22/20 18:03 01/22/20 18:03 Laboratory Results 01/22/20 01/22/20 01/22/20 Range/Units 21:35 20:51 18:45 WBC (4.0-10.5) K/mm3 RBC (4.1-5.4) M/mm3 Hgb (12.0-16.0) gm/dl Hct (35-47) % MCV (78-100) fl MCH (26-32) pg MCHC (32-36) g/dl RDW (11.5-14.0) % Plt Count (150-450) K/mm3 MPV (7.5-11.0) fl Gran % (36.0-66.0) % Eos # (Auto) (0-0.5) Absolute Lymphs (auto) (1.0-4.6) Absolute Monos (auto) (0.0-1.3) Lymphocytes % (24.0-44.0) % Monocytes % (0.0-12.0) % Eosinophils % (0.00-5.0) % Basophils % (0.0-0.4) % Absolute Granulocytes (1.4-6.9) Basophils # (0-0.4) D-Dimer (215-500) ng/mL Puncture Site pCO2 (35-45) mmHg pO2 (75-100) mmHg Base Excess (-2.0-2.0) O2 Saturation (94-100) g/dF ABG pH (7.35-7.45) ABG HCO3 (22-28) ABG O2 Sat (Measured) (95-100) % Junior Test A-a Gradient a/A Ratio Hemoglobin Carboxyhemoglobin (0.0-6.9) % THgb Methemoglobin (1.4-1.5) % Potassium (3.5-5.1) Temperature C POC O2 Flow Rate % Sodium (137-145) mmol/L Chloride (98-107) mmol/L Carbon Dioxide (22-30) mmol/L Anion Gap (5-15) MEQ/L BUN (7-17) mg/dL Creatinine (0.52-1.04) mg/dL Estimated GFR ML/MIN Glucose (74-106) mg/dL Lactic Acid (0.4-2.0) Calcium (8.4-10.2) mg/dL Magnesium (1.6-2.3) mg/dL Total Bilirubin (0.2-1.3) mg/dL AST (14-36) U/L ALT (0-35) U/L Alkaline Phosphatase (38-126) U/L Troponin I < 0.012 (0.000-0.034) ng/mL NT-Pro-B Natriuret Pep (0-900) pg/mL Serum Total Protein (6.3-8.2) g/dL Albumin (3.5-5.0) g/dL Urine Color YELLOW (YELLOW) Urine Appearance SLIGHTLY CLOUDY (CLEAR) Urine pH 6.0 (5-6) Ur Specific [place] 1.010 (1.005-1.025) Urine Protein NEGATIVE (Negative) Urine Ketones NEGATIVE (NEGATIVE) Urine Blood NEGATIVE (0-5) Lui/ul Urine Nitrite NEGATIVE (NEGATIVE) Urine Bilirubin NEGATIVE (NEGATIVE) Urine Urobilinogen NEGATIVE (0-1) mg/dL Ur Leukocyte Esterase NEGATIVE (NEGATIVE) Urine WBC (Auto) NONE (0-5) /HPF Urine RBC (Auto) NONE (0-2) /HPF U Epithel Cells (Auto) RARE (FEW) /HPF Urine Bacteria (Auto) NONE (NEGATIVE) /HPF Urine Mucus (Auto) SLIGHT (NEGATIVE) /HPF Urine Culture Reflexed NO (NO) Urine Glucose NEGATIVE (NEGATIVE) mg/dL SARS-CoV-2 (PCR) NEGATIVE (NEGATIVE) 01/22/20 01/22/20 01/22/20 Range/Units 18:04 18:03 18:03 WBC (4.0-10.5) K/mm3 RBC (4.1-5.4) M/mm3 Hgb (12.0-16.0) gm/dl Hct (35-47) % MCV (78-100) fl MCH (26-32) pg MCHC (32-36) g/dl RDW (11.5-14.0) % Plt Count (150-450) K/mm3 MPV (7.5-11.0) fl Gran % (36.0-66.0) % Eos # (Auto) (0-0.5) Absolute Lymphs (auto) (1.0-4.6) Absolute Monos (auto) (0.0-1.3) Lymphocytes % (24.0-44.0) % Monocytes % (0.0-12.0) % Eosinophils % (0.00-5.0) % Basophils % (0.0-0.4) % Absolute Granulocytes (1.4-6.9) Basophils # (0-0.4) D-Dimer 877 H* (215-500) ng/mL Puncture Site pCO2 (35-45) mmHg pO2 (75-100) mmHg Base Excess (-2.0-2.0) O2 Saturation (94-100) g/dF ABG pH (7.35-7.45) ABG HCO3 (22-28) ABG O2 Sat (Measured) (95-100) % Junior Test A-a Gradient a/A Ratio Hemoglobin Carboxyhemoglobin (0.0-6.9) % THgb Methemoglobin (1.4-1.5) % Potassium 3.8 (3.5-5.1) Temperature C POC O2 Flow Rate % Sodium 139 (137-145) mmol/L Chloride 103 (98-107) mmol/L Carbon Dioxide 31 H (22-30) mmol/L Anion Gap 9.1 (5-15) MEQ/L BUN 13 (7-17) mg/dL Creatinine 0.50 L (0.52-1.04) mg/dL Estimated GFR > 60.0 ML/MIN Glucose 114 H (74-106) mg/dL Lactic Acid (0.4-2.0) Calcium 9.6 (8.4-10.2) mg/dL Magnesium 2.2 (1.6-2.3) mg/dL Total Bilirubin 0.30 (0.2-1.3) mg/dL AST 16 (14-36) U/L ALT 15 (0-35) U/L Alkaline Phosphatase 71 (38-126) U/L Troponin I < 0.012 (0.000-0.034) ng/mL NT-Pro-B Natriuret Pep 71.6 (0-900) pg/mL Serum Total Protein 7.6 (6.3-8.2) g/dL Albumin 4.0 (3.5-5.0) g/dL Urine Color (YELLOW) Urine Appearance (CLEAR) Urine pH (5-6) Ur Specific [place] (1.005-1.025) Urine Protein (Negative) Urine Ketones (NEGATIVE) Urine Blood (0-5) Lui/ul Urine Nitrite (NEGATIVE) Urine Bilirubin (NEGATIVE) Urine Urobilinogen (0-1) mg/dL Ur Leukocyte Esterase (NEGATIVE) Urine WBC (Auto) (0-5) /HPF Urine RBC (Auto) (0-2) /HPF U Epithel Cells (Auto) (FEW) /HPF Urine Bacteria (Auto) (NEGATIVE) /HPF Urine Mucus (Auto) (NEGATIVE) /HPF Urine Culture Reflexed (NO) Urine Glucose (NEGATIVE) mg/dL SARS-CoV-2 (PCR) (NEGATIVE) 01/22/20 01/22/20 01/22/20 Range/Units 18:03 17:50 17:50 WBC 9.7 (4.0-10.5) K/mm3 RBC 4.23 (4.1-5.4) M/mm3 Hgb 13.0 (12.0-16.0) gm/dl Hct 41.7 (35-47) % MCV 98.6 (78-100) fl MCH 30.7 (26-32) pg MCHC 31.2 L (32-36) g/dl RDW 15.0 H (11.5-14.0) % Plt Count 296 (150-450) K/mm3 MPV 9.1 (7.5-11.0) fl Gran % 61.1 (36.0-66.0) % Eos # (Auto) 0.28 (0-0.5) Absolute Lymphs (auto) 2.58 (1.0-4.6) Absolute Monos (auto) 0.82 (0.0-1.3) Lymphocytes % 26.7 (24.0-44.0) % Monocytes % 8.5 (0.0-12.0) % Eosinophils % 2.9 (0.00-5.0) % Basophils % 0.8 (0.0-0.4) % Absolute Granulocytes 5.92 (1.4-6.9) Basophils # 0.08 (0-0.4) D-Dimer (215-500) ng/mL Puncture Site RIGHT RADIAL pCO2 46 H (35-45) mmHg pO2 103 H (75-100) mmHg Base Excess 11.2 H (-2.0-2.0) O2 Saturation 90.6 L (94-100) g/dF ABG pH 7.50 H (7.35-7.45) ABG HCO3 35.9 H* (22-28) ABG O2 Sat (Measured) 98.5 (95-100) % Junior Test YES A-a Gradient 39 a/A Ratio 0.73 Hemoglobin 13.5 Carboxyhemoglobin 7.2 H* (0.0-6.9) % THgb Methemoglobin 0.9 L (1.4-1.5) % Potassium 3.9 (3.5-5.1) Temperature 37.0 C POC O2 Flow Rate 28 % Sodium (137-145) mmol/L Chloride (98-107) mmol/L Carbon Dioxide (22-30) mmol/L Anion Gap (5-15) MEQ/L BUN (7-17) mg/dL Creatinine (0.52-1.04) mg/dL Estimated GFR ML/MIN Glucose (74-106) mg/dL Lactic Acid 0.8 (0.4-2.0) Calcium (8.4-10.2) mg/dL Magnesium (1.6-2.3) mg/dL Total Bilirubin (0.2-1.3) mg/dL AST (14-36) U/L ALT (0-35) U/L Alkaline Phosphatase (38-126) U/L Troponin I (0.000-0.034) ng/mL NT-Pro-B Natriuret Pep (0-900) pg/mL Serum Total Protein (6.3-8.2) g/dL Albumin (3.5-5.0) g/dL Urine Color (YELLOW) Urine Appearance (CLEAR) Urine pH (5-6) Ur Specific [place] (1.005-1.025) Urine Protein (Negative) Urine Ketones (NEGATIVE) Urine Blood (0-5) Lui/ul Urine Nitrite (NEGATIVE) Urine Bilirubin (NEGATIVE) Urine Urobilinogen (0-1) mg/dL Ur Leukocyte Esterase (NEGATIVE) Urine WBC (Auto) (0-5) /HPF Urine RBC (Auto) (0-2) /HPF U Epithel Cells (Auto) (FEW) /HPF Urine Bacteria (Auto) (NEGATIVE) /HPF Urine Mucus (Auto) (NEGATIVE) /HPF Urine Culture Reflexed (NO) Urine Glucose (NEGATIVE) mg/dL SARS-CoV-2 (PCR) (NEGATIVE) - Progress Progress: improved Air Movement: good Progress Note: 01/22/20 21:30 Patient reassessed. She feels much better. Patient's hypoxia resolved with 2 L of oxygen nasal cannula. Patient does not normally require oxygen. D-dimer positive. CTA negative for PE. Bilateral lower extremity swelling. BNP negative. Carbon monoxide is elevated however patient is a smoker. Smoking cessation discussed. COVID test pending. Solu-Medrol administered. Blood cultures obtained. Antibiotics infused. Plan of care discussed with patient. She agrees to admission to [facility] for further evaluation and treatment. Case discussed with Dr. Miner who accepts admission to observation. 01/22/20 23:06 Blood Culture(s) Obtained: Yes Antibiotics given: Yes Will see patient in: hospital (observation) Counseled pt/family regarding: lab results, diagnosis, need for follow-up, rad results, smoking cessation - Departure Departure Disposition: Observation Clinical Impression: Emphysema lung, Calcified granuloma of lung, Fatty liver, Hypoxia, Elevated CO2 level, COPD exacerbation Condition: Stable Critical Care Time: No Referrals: TATUM MINER MD [Primary Care Provider] - Instructions: Chronic Obstructive Pulmonary Disease
[2020-01-22 18:09] LABS: Absolute Neutrophil Ct (ANC) 5.92 (1.4-6.9); BASOPHIL % 0.8 % (0.0-0.4); Basophil (Absolute #) 0.08 (0-0.4); Eosinophil % 2.9 % (0.00-5.0); Eosinophil (Absolute #) 0.28 (0-0.5); Hematocrit 41.7 % (35-47); Lymphocyte (Absolute #) 2.58 (1.0-4.6); Lymphocytes % 26.7 % (24.0-44.0); Mean Cell Volume 98.6 fl (78-100); Mean Corpuscular Hemoglobin 30.7 pg (26-32); Mean Corpuscular Hgb Concent. 31.2 g/dl (32-36); Mean Platelet Volume 9.1 fl (7.5-11.0); Monocyte (Absolute #) 0.82 (0.0-1.3); Monocytes % 8.5 % (0.0-12.0); Neutrophil % 61.1 % (36.0-66.0); Platelet Count 296 K/mm3 (150-450); Red Blood Count 4.23 M/mm3 (4.1-5.4); White Blood Count 9.7 K/mm3 (4.0-10.5)
[2020-01-22 18:34] LABS: ALKALINE PHOSPHATASE 71 U/L (38-126); ANION GAP 9.1 MEQ/L (5-15); BLOOD UREA NITROGEN 13 mg/dL (7-17); CHLORIDE 103 mmol/L (98-107); Calcium 9.6 mg/dL (8.4-10.2); Carbon Dioxide 31 mmol/L (22-30); EST GLOMERULAR FILTRATION RATE > 60.0 ML/MIN; Glucose 114 mg/dL (74-106); MAGNESIUM 2.2 mg/dL (1.6-2.3); NT PRO BNP 71.6 pg/mL (0-900); Potassium 3.8 mmol/L (3.5-5.1); SGOT/AST 16 U/L (14-36); SGPT/ALT 15 U/L (0-35); SODIUM 139 mmol/L (137-145); Total Protein 7.6 g/dL (6.3-8.2)
[2020-01-22 19:45] LABS: Appearance SLIGHTLY CLOUDY (CLEAR); Bilirubin NEGATIVE (NEGATIVE); Blood NEGATIVE Ery/ul (0-5); Epithelial Cells RARE /HPF (FEW); Glucose NEGATIVE (NEGATIVE); Ketones NEGATIVE (NEGATIVE); Leukocyte Esterase NEGATIVE (NEGATIVE); Mucus SLIGHT /HPF (NEGATIVE); Nitrite NEGATIVE (NEGATIVE); Protein,Urine Dip NEGATIVE (Negative); Urobilinogen NEGATIVE mg/dL (0-1)
[2020-01-22] MEDS ORDERED: solu-MEDROL 125 MG IV ONE (21:26)
[2020-01-22] MEDS ORDERED: solu-MEDROL 125 MG ONE (21:33)
[2020-01-22] MEDS ORDERED: Sodium Chloride 100ML MINI-BAG PLUS 0 ML IV ONE (21:34)
[2020-01-22] MEDS ORDERED: VIBRAMYCIN 100 MG IV ONE ×2 (21:34→21:43)
[2020-01-22] MEDS ORDERED: D5w 100ML Mini Bag 100 ML 0 ML IV ONE (21:44)
[2020-01-22] MEDS: VIBRAMYCIN 100 MG*** 100 MG in Dextrose 5%/Water IV Soln. 100ML PLUS BAG 100 ML IV SCH (21:50)
[2020-01-22] MEDS ORDERED: D5w 100ML Mini Bag 100 ML 100 ML IV ONE (21:53)
[2020-01-23] MEDS: PROVENTIL 2.5 MG/3 ML NEB IH SCH ×3 (02:20→10:45)
[2020-01-23] MEDS: solu-MEDROL 125 MG IV SCH (05:48)
[2020-01-23 06:04] LABS: Hematocrit 41.7 % (35-47); Mean Corpuscular Hemoglobin 30.9 pg (26-32); Mean Corpuscular Hgb Concent. 31.2 g/dl (32-36); Mean Platelet Volume 9.2 fl (7.5-11.0); Platelet Count 271 K/mm3 (150-450); Red Blood Count 4.21 M/mm3 (4.1-5.4); White Blood Count 10.4 K/mm3 (4.0-10.5)
[2020-01-23 06:05] LABS: A-aADO2 78; ABG HEMOGLOBIN 13.5; ABG SITE RIGHT RADIAL; ALLEN TEST OK? YES; ARTERIAL BLD GAS O2 SATURATION 98.9 % (95-100); ARTERIAL BLOOD GAS BASE EXCESS 7.2 (-2.0-2.0); ARTERIAL BLOOD GAS FIO2 28 %; ARTERIAL BLOOD GAS PCO2 35 mmHg (35-45); ARTERIAL BLOOD GAS PO2 78 mmHg (75-100); ARTERIAL BLOOD GAS VENT MODE CPAP; ARTERIAL BLOOD GAS pH 7.54 (7.35-7.45); CARBOXYHEMOGLOBIN 8.1 % THgb (0.0-6.9); HCO3- 29.9 (22-28); HGB O2 SAT 89.8 g/dF (94-100); Methhemoglobin 1.1 % (1.4-1.5)
[2020-01-23 06:15] LABS: ALBUMIN 3.8 g/dL (3.5-5.0); ALKALINE PHOSPHATASE 66 U/L (38-126); ANION GAP 10.4 MEQ/L (5-15); BLOOD UREA NITROGEN 12 mg/dL (7-17); CHLORIDE 101 mmol/L (98-107); Calcium 9.5 mg/dL (8.4-10.2); Carbon Dioxide 28 mmol/L (22-30); Creatinine 1 0.47 mg/dL (0.52-1.04); EST GLOMERULAR FILTRATION RATE > 60.0 ML/MIN; Glucose 241 mg/dL (74-106); Potassium 3.9 mmol/L (3.5-5.1); SGOT/AST 17 U/L (14-36); SGPT/ALT 16 U/L (0-35); SODIUM 136 mmol/L (137-145); Total Protein 7.3 g/dL (6.3-8.2)
--- NOTE | 2020-01-23 08:28 | PCM.SSS ---
History of Present Illness - Chief Complaint Chief Complaint: COPD Exacerbation, Hypoxia History of Present Illness: is a 54 year old female who arrived with wheezing and shortness of b reath, no sputum production, no fever. She is awaiting surgery at on Sunday, she is feeling much better today, no oxygen requirements, speaking in full sentences and dyspnea is resolved. - Review of Systems Constitutional: No Fever, No Chills Respiratory: Cough, Short Of Breath, Wheezing Cardiac: No Chest Pain, No Edema, No Syncope Abdominal/Gastrointestinal: No Abdominal Pain, No Nausea, No Vomiting, No Diarrhea Genitourinary Symptoms: No Dysuria Skin: No Rash All Other Systems: Reviewed and Negative Medications & Allergies Home Medications: Home Medication List Albuterol Sulfate Mdi [Proair Hfa MDI] 8.5 gm IN QID PRN 08/23/19 [History Confirmed 01/22/20] Carvedilol 3.125 mg [Coreg 3.125 MG] 3.125 mg PO BID 08/23/19 [History Confirmed 01/22/20] Duloxetine HCl 30 mg PO DAILY 08/23/19 [History Confirmed 01/22/20] Duloxetine HCl 60 mg PO DAILY 08/23/19 [History Confirmed 01/23/20] Fluticasone Propion/Salmeterol [Wixela 250-50 Inhub] 1 puffs PO BID 08/23/19 [History Confirmed 01/22/20] Lisinopril/Hydrochlorothiazide [Lisinopril-Hctz 20-25 mg Tab] 20 - 25 mg PO DAILY 08/23/19 [History Confirmed 01/22/20] Metformin HCl 500 mg PO BID 08/23/19 [History Confirmed 01/22/20] predniSONE [Prednisone] 5 mg PO BID 08/23/19 [History Confirmed 01/22/20] Albuterol/Ipratropium 3ml Neb* [DUONEB 0.5-3 MG/3 ml Neb] 3 ml IH Q6H PRN PRN #100 ampul.neb 01/23/20 [Rx] Doxycycline Hyclate 100 mg [Vibramycin 100 MG] 100 mg PO BID #10 tab 01/23/20 [Rx] Nebulizer and Compressor [Easy Air Compressor Nebulizer] 1 each MC UD #1 each 01/23/20 [Rx] Allergies/Adverse Reactions: Allergies Allergy/AdvReac Type Severity Reaction Status Date / Time amoxicillin [Amoxicillin] Allergy Severe Rash Verified 01/22/20 19:26 aripiprazole [From Abilify] Allergy Severe Swelling Verified 01/22/20 19:26 metronidazole [From Flagyl] Allergy Severe Rash Verified 01/22/20 19:26 Metronidazole HCl Allergy Severe Rash Verified 01/22/20 19:26 [From Flagyl] Penicillins Allergy Severe Rash Verified 01/22/20 19:26 quetiapine fumarate Allergy Severe Swelling Verified 01/22/20 19:26 [From Seroquel] azithromycin [From Zithromax] Allergy Mild Verified 01/22/20 19:26 codeine [Codeine] Allergy Mild Nausea Verified 01/22/20 19:26 trazodone AdvReac Mild Verified 01/22/20 19:26 - Past Medical History Past Medical History: Yes Neurological History: No Pertinent History ENT History: No Pertinent History Cardiac History: Hypertension Respiratory History: Bronchitis, COPD, Other Endocrine Medical History: Diabetes Type II Musculoskelatal History: Rheumatoid Arthritis GI Medical History: No Pertinent History History: No Pertinent History Pyscho-Social History: Anxiety, Bipolar, Depression Reproductive Disorders: Cervical Cancer Comment: Ovarian mass, hernia - Female History Hx Last Menstrual Period: post-menopausal Are you now?: No - Past Surgical History Past Surgical History: Yes Neuro Surgical History: No Pertinent History Cardiac History: No Pertinent History Respiratory Surgery: No Pertinent History GI Surgical History: No Pertinent History Genitourinary Surgical Hx: No Pertinent History Musculskeletal Surgical Hx: Orthopedic Surgery Female Surgical History: Tubal Ligation Other Surgical History: Ankle surgery. Knee drained and wash - Social History Smoking Status: Current every day smoker How long have you smoked: 40 Exposure to second hand smoke: No Alcohol: None Drug Use: none - Physical Exam Vital Signs: Vital Signs - 24 hr Temp Pulse Resp BP Pulse Ox 01/23/20 07:01 68 20 89 L 01/23/20 06:56 98.6 F 60 22 130/62 91 L 01/23/20 03:52 56 L 22 01/23/20 02:32 59 L 20 92 L 01/23/20 01:33 98.2 F 57 L 21 141/60 95 01/23/20 01:00 56 L 18 123/76 97 01/22/20 23:07 98 01/22/20 22:18 53 L 16 113/58 97 01/22/20 21:11 51 L 21 154/71 97 01/22/20 19:00 53 L 20 105/50 97 01/22/20 18:45 54 L 18 120/44 96 01/22/20 18:40 96 01/22/20 17:32 98.1 F 66 19 164/98 96 General Appearance: no apparent distress, obese Neurologic Exam: alert, oriented x 3 Respiratory Exam: normal breath sounds, lungs clear, No respiratory distress Cardiovascular Exam: regular rate/rhythm, normal heart sounds, normal peripheral pulses Gastrointestinal/Abdomen Exam: soft, normal bowel sounds, No tenderness, No mass Skin Exam: normal color, warm, dry, No rash Results - Labs Lab/Micro Results: Lab Results-Last 24 Hours 01/22/20 01/22/20 01/22/20 Range/Units 00:00 17:50 17:50 WBC (4.0-10.5) K/mm3 RBC (4.1-5.4) M/mm3 Hgb (12.0-16.0) gm/dl Hct (35-47) % MCV (78-100) fl MCH (26-32) pg MCHC (32-36) g/dl RDW (11.5-14.0) % Plt Count (150-450) K/mm3 MPV (7.5-11.0) fl Gran % (36.0-66.0) % Eos # (Auto) (0-0.5) Absolute Lymphs (auto) (1.0-4.6) Absolute Monos (auto) (0.0-1.3) Lymphocytes % (24.0-44.0) % Monocytes % (0.0-12.0) % Eosinophils % (0.00-5.0) % Basophils % (0.0-0.4) % Absolute Granulocytes (1.4-6.9) Basophils # (0-0.4) D-Dimer (215-500) ng/mL Puncture Site RIGHT RADIAL pCO2 46 H (35-45) mmHg pO2 103 H (75-100) mmHg Base Excess 11.2 H (-2.0-2.0) O2 Saturation 90.6 L (94-100) g/dF ABG pH 7.50 H (7.35-7.45) ABG HCO3 35.9 H* (22-28) ABG O2 Sat (Measured) 98.5 (95-100) % Junior Test YES A-a Gradient 39 a/A Ratio 0.73 Hemoglobin 13.5 Carboxyhemoglobin 7.2 H* (0.0-6.9) % THgb Methemoglobin 0.9 L (1.4-1.5) % Potassium 3.9 (3.5-5.1) Temperature 37.0 C POC O2 Flow Rate 28 % Vent Mode PEEP cmH2O Sodium (137-145) mmol/L Chloride (98-107) mmol/L Carbon Dioxide (22-30) mmol/L Anion Gap (5-15) MEQ/L BUN (7-17) mg/dL Creatinine (0.52-1.04) mg/dL Estimated GFR ML/MIN Glucose (74-106) mg/dL Lactic Acid 0.8 (0.4-2.0) Calcium (8.4-10.2) mg/dL Magnesium (1.6-2.3) mg/dL Total Bilirubin (0.2-1.3) mg/dL AST (14-36) U/L ALT (0-35) U/L Alkaline Phosphatase (38-126) U/L Troponin I < 0.012 (0.000-0.034) ng/mL NT-Pro-B Natriuret Pep (0-900) pg/mL Serum Total Protein (6.3-8.2) g/dL Albumin (3.5-5.0) g/dL Urine Color (YELLOW) Urine Appearance (CLEAR) Urine pH (5-6) Ur Specific Peel (1.005-1.025) Urine Protein (Negative) Urine Ketones (NEGATIVE) Urine Blood (0-5) Lui/ul Urine Nitrite (NEGATIVE) Urine Bilirubin (NEGATIVE) Urine Urobilinogen (0-1) mg/dL Ur Leukocyte Esterase (NEGATIVE) Urine WBC (Auto) (0-5) /HPF Urine RBC (Auto) (0-2) /HPF U Epithel Cells (Auto) (FEW) /HPF Urine Bacteria (Auto) (NEGATIVE) /HPF Urine Mucus (Auto) (NEGATIVE) /HPF Urine Culture Reflexed (NO) Urine Glucose (NEGATIVE) mg/dL SARS-CoV-2 (PCR) (NEGATIVE) 01/22/20 01/22/20 01/22/20 Range/Units 18:03 18:03 18:03 WBC 9.7 (4.0-10.5) K/mm3 RBC 4.23 (4.1-5.4) M/mm3 Hgb 13.0 (12.0-16.0) gm/dl Hct 41.7 (35-47) % MCV 98.6 (78-100) fl MCH 30.7 (26-32) pg MCHC 31.2 L (32-36) g/dl RDW 15.0 H (11.5-14.0) % Plt Count 296 (150-450) K/mm3 MPV 9.1 (7.5-11.0) fl Gran % 61.1 (36.0-66.0) % Eos # (Auto) 0.28 (0-0.5) Absolute Lymphs (auto) 2.58 (1.0-4.6) Absolute Monos (auto) 0.82 (0.0-1.3) Lymphocytes % 26.7 (24.0-44.0) % Monocytes % 8.5 (0.0-12.0) % Eosinophils % 2.9 (0.00-5.0) % Basophils % 0.8 (0.0-0.4) % Absolute Granulocytes 5.92 (1.4-6.9) Basophils # 0.08 (0-0.4) D-Dimer 877 H* (215-500) ng/mL Puncture Site pCO2 (35-45) mmHg pO2 (75-100) mmHg Base Excess (-2.0-2.0) O2 Saturation (94-100) g/dF ABG pH (7.35-7.45) ABG HCO3 (22-28) ABG O2 Sat (Measured) (95-100) % Junior Test A-a Gradient a/A Ratio Hemoglobin Carboxyhemoglobin (0.0-6.9) % THgb Methemoglobin (1.4-1.5) % Potassium 3.8 (3.5-5.1) Temperature C POC O2 Flow Rate % Vent Mode PEEP cmH2O Sodium 139 (137-145) mmol/L Chloride 103 (98-107) mmol/L Carbon Dioxide 31 H (22-30) mmol/L Anion Gap 9.1 (5-15) MEQ/L BUN 13 (7-17) mg/dL Creatinine 0.50 L (0.52-1.04) mg/dL Estimated GFR > 60.0 ML/MIN Glucose 114 H (74-106) mg/dL Lactic Acid (0.4-2.0) Calcium 9.6 (8.4-10.2) mg/dL Magnesium 2.2 (1.6-2.3) mg/dL Total Bilirubin 0.30 (0.2-1.3) mg/dL AST 16 (14-36) U/L ALT 15 (0-35) U/L Alkaline Phosphatase 71 (38-126) U/L Troponin I (0.000-0.034) ng/mL NT-Pro-B Natriuret Pep 71.6 (0-900) pg/mL Serum Total Protein 7.6 (6.3-8.2) g/dL Albumin 4.0 (3.5-5.0) g/dL Urine Color (YELLOW) Urine Appearance (CLEAR) Urine pH (5-6) Ur Specific Peel (1.005-1.025) Urine Protein (Negative) Urine Ketones (NEGATIVE) Urine Blood (0-5) Lui/ul Urine Nitrite (NEGATIVE) Urine Bilirubin (NEGATIVE) Urine Urobilinogen (0-1) mg/dL Ur Leukocyte Esterase (NEGATIVE) Urine WBC (Auto) (0-5) /HPF Urine RBC (Auto) (0-2) /HPF U Epithel Cells (Auto) (FEW) /HPF Urine Bacteria (Auto) (NEGATIVE) /HPF Urine Mucus (Auto) (NEGATIVE) /HPF Urine Culture Reflexed (NO) Urine Glucose (NEGATIVE) mg/dL SARS-CoV-2 (PCR) (NEGATIVE) 01/22/20 01/22/20 01/22/20 Range/Units 18:04 18:45 20:51 WBC (4.0-10.5) K/mm3 RBC (4.1-5.4) M/mm3 Hgb (12.0-16.0) gm/dl Hct (35-47) % MCV (78-100) fl MCH (26-32) pg MCHC (32-36) g/dl RDW (11.5-14.0) % Plt Count (150-450) K/mm3 MPV (7.5-11.0) fl Gran % (36.0-66.0) % Eos # (Auto) (0-0.5) Absolute Lymphs (auto) (1.0-4.6) Absolute Monos (auto) (0.0-1.3) Lymphocytes % (24.0-44.0) % Monocytes % (0.0-12.0) % Eosinophils % (0.00-5.0) % Basophils % (0.0-0.4) % Absolute Granulocytes (1.4-6.9) Basophils # (0-0.4) D-Dimer (215-500) ng/mL Puncture Site pCO2 (35-45) mmHg pO2 (75-100) mmHg Base Excess (-2.0-2.0) O2 Saturation (94-100) g/dF ABG pH (7.35-7.45) ABG HCO3 (22-28) ABG O2 Sat (Measured) (95-100) % Junior Test A-a Gradient a/A Ratio Hemoglobin Carboxyhemoglobin (0.0-6.9) % THgb Methemoglobin (1.4-1.5) % Potassium (3.5-5.1) Temperature C POC O2 Flow Rate % Vent Mode PEEP cmH2O Sodium (137-145) mmol/L Chloride (98-107) mmol/L Carbon Dioxide (22-30) mmol/L Anion Gap (5-15) MEQ/L BUN (7-17) mg/dL Creatinine (0.52-1.04) mg/dL Estimated GFR ML/MIN Glucose (74-106) mg/dL Lactic Acid (0.4-2.0) Calcium (8.4-10.2) mg/dL Magnesium (1.6-2.3) mg/dL Total Bilirubin (0.2-1.3) mg/dL AST (14-36) U/L ALT (0-35) U/L Alkaline Phosphatase (38-126) U/L Troponin I < 0.012 < 0.012 (0.000-0.034) ng/mL NT-Pro-B Natriuret Pep (0-900) pg/mL Serum Total Protein (6.3-8.2) g/dL Albumin (3.5-5.0) g/dL Urine Color YELLOW (YELLOW) Urine Appearance SLIGHTLY CLOUDY (CLEAR) Urine pH 6.0 (5-6) Ur Specific Peel 1.010 (1.005-1.025) Urine Protein NEGATIVE (Negative) Urine Ketones NEGATIVE (NEGATIVE) Urine Blood NEGATIVE (0-5) Lui/ul Urine Nitrite NEGATIVE (NEGATIVE) Urine Bilirubin NEGATIVE (NEGATIVE) Urine Urobilinogen NEGATIVE (0-1) mg/dL Ur Leukocyte Esterase NEGATIVE (NEGATIVE) Urine WBC (Auto) NONE (0-5) /HPF Urine RBC (Auto) NONE (0-2) /HPF U Epithel Cells (Auto) RARE (FEW) /HPF Urine Bacteria (Auto) NONE (NEGATIVE) /HPF Urine Mucus (Auto) SLIGHT (NEGATIVE) /HPF Urine Culture Reflexed NO (NO) Urine Glucose NEGATIVE (NEGATIVE) mg/dL SARS-CoV-2 (PCR) (NEGATIVE) 01/22/20 01/23/20 01/23/20 Range/Units 21:35 02:51 05:50 WBC (4.0-10.5) K/mm3 RBC (4.1-5.4) M/mm3 Hgb (12.0-16.0) gm/dl Hct (35-47) % MCV (78-100) fl MCH (26-32) pg MCHC (32-36) g/dl RDW (11.5-14.0) % Plt Count (150-450) K/mm3 MPV (7.5-11.0) fl Gran % (36.0-66.0) % Eos # (Auto) (0-0.5) Absolute Lymphs (auto) (1.0-4.6) Absolute Monos (auto) (0.0-1.3) Lymphocytes % (24.0-44.0) % Monocytes % (0.0-12.0) % Eosinophils % (0.00-5.0) % Basophils % (0.0-0.4) % Absolute Granulocytes (1.4-6.9) Basophils # (0-0.4) D-Dimer (215-500) ng/mL Puncture Site pCO2 (35-45) mmHg pO2 (75-100) mmHg Base Excess (-2.0-2.0) O2 Saturation (94-100) g/dF ABG pH (7.35-7.45) ABG HCO3 (22-28) ABG O2 Sat (Measured) (95-100) % Junior Test A-a Gradient a/A Ratio Hemoglobin Carboxyhemoglobin (0.0-6.9) % THgb Methemoglobin (1.4-1.5) % Potassium (3.5-5.1) Temperature C POC O2 Flow Rate % Vent Mode PEEP cmH2O Sodium (137-145) mmol/L Chloride (98-107) mmol/L Carbon Dioxide (22-30) mmol/L Anion Gap (5-15) MEQ/L BUN (7-17) mg/dL Creatinine (0.52-1.04) mg/dL Estimated GFR ML/MIN Glucose (74-106) mg/dL Lactic Acid (0.4-2.0) Calcium (8.4-10.2) mg/dL Magnesium (1.6-2.3) mg/dL Total Bilirubin (0.2-1.3) mg/dL AST (14-36) U/L ALT (0-35) U/L Alkaline Phosphatase (38-126) U/L Troponin I < 0.012 < 0.012 (0.000-0.034) ng/mL NT-Pro-B Natriuret Pep (0-900) pg/mL Serum Total Protein (6.3-8.2) g/dL Albumin (3.5-5.0) g/dL Urine Color (YELLOW) Urine Appearance (CLEAR) Urine pH (5-6) Ur Specific Peel (1.005-1.025) Urine Protein (Negative) Urine Ketones (NEGATIVE) Urine Blood (0-5) Lui/ul Urine Nitrite (NEGATIVE) Urine Bilirubin (NEGATIVE) Urine Urobilinogen (0-1) mg/dL Ur Leukocyte Esterase (NEGATIVE) Urine WBC (Auto) (0-5) /HPF Urine RBC (Auto) (0-2) /HPF U Epithel Cells (Auto) (FEW) /HPF Urine Bacteria (Auto) (NEGATIVE) /HPF Urine Mucus (Auto) (NEGATIVE) /HPF Urine Culture Reflexed (NO) Urine Glucose (NEGATIVE) mg/dL SARS-CoV-2 (PCR) NEGATIVE (NEGATIVE) 01/23/20 01/23/20 01/23/20 Range/Units 05:50 05:50 05:56 WBC 10.4 (4.0-10.5) K/mm3 RBC 4.21 (4.1-5.4) M/mm3 Hgb 13.0 (12.0-16.0) gm/dl Hct 41.7 (35-47) % MCV 99.0 (78-100) fl MCH 30.9 (26-32) pg MCHC 31.2 L (32-36) g/dl RDW 15.0 H (11.5-14.0) % Plt Count 271 (150-450) K/mm3 MPV 9.2 (7.5-11.0) fl Gran % (36.0-66.0) % Eos # (Auto) (0-0.5) Absolute Lymphs (auto) (1.0-4.6) Absolute Monos (auto) (0.0-1.3) Lymphocytes % (24.0-44.0) % Monocytes % (0.0-12.0) % Eosinophils % (0.00-5.0) % Basophils % (0.0-0.4) % Absolute Granulocytes (1.4-6.9) Basophils # (0-0.4) D-Dimer (215-500) ng/mL Puncture Site RIGHT RADIAL pCO2 35 (35-45) mmHg pO2 78 (75-100) mmHg Base Excess 7.2 H (-2.0-2.0) O2 Saturation 89.8 L (94-100) g/dF ABG pH 7.54 H (7.35-7.45) ABG HCO3 29.9 H* (22-28) ABG O2 Sat (Measured) 98.9 (95-100) % Junior Test YES A-a Gradient 78 a/A Ratio 0.50 Hemoglobin 13.5 Carboxyhemoglobin 8.1 H* (0.0-6.9) % THgb Methemoglobin 1.1 L (1.4-1.5) % Potassium 3.9 4.0 (3.5-5.1) Temperature 37.0 C POC O2 Flow Rate 28 % Vent Mode CPAP PEEP 12.0 cmH2O Sodium 136 L (137-145) mmol/L Chloride 101 (98-107) mmol/L Carbon Dioxide 28 (22-30) mmol/L Anion Gap 10.4 (5-15) MEQ/L BUN 12 (7-17) mg/dL Creatinine 0.47 L (0.52-1.04) mg/dL Estimated GFR > 60.0 ML/MIN Glucose 241 H (74-106) mg/dL Lactic Acid (0.4-2.0) Calcium 9.5 (8.4-10.2) mg/dL Magnesium (1.6-2.3) mg/dL Total Bilirubin 0.30 (0.2-1.3) mg/dL AST 17 (14-36) U/L ALT 16 (0-35) U/L Alkaline Phosphatase 66 (38-126) U/L Troponin I (0.000-0.034) ng/mL NT-Pro-B Natriuret Pep (0-900) pg/mL Serum Total Protein 7.3 (6.3-8.2) g/dL Albumin 3.8 (3.5-5.0) g/dL Urine Color (YELLOW) Urine Appearance (CLEAR) Urine pH (5-6) Ur Specific Peel (1.005-1.025) Urine Protein (Negative) Urine Ketones (NEGATIVE) Urine Blood (0-5) Lui/ul Urine Nitrite (NEGATIVE) Urine Bilirubin (NEGATIVE) Urine Urobilinogen (0-1) mg/dL Ur Leukocyte Esterase (NEGATIVE) Urine WBC (Auto) (0-5) /HPF Urine RBC (Auto) (0-2) /HPF U Epithel Cells (Auto) (FEW) /HPF Urine Bacteria (Auto) (NEGATIVE) /HPF Urine Mucus (Auto) (NEGATIVE) /HPF Urine Culture Reflexed (NO) Urine Glucose (NEGATIVE) mg/dL SARS-CoV-2 (PCR) (NEGATIVE) - Radiology Impressions Radiology Exams & Impressions: Radiology Procedures Category Date Time Status CHEST 1 VIEW (PORTABLE) Stat Exams 01/22/20 17:39 Taken CHEST WITH CONTRAST [CT] Stat Exams 01/22/20 18:33 Taken - Other Procedures and Tests Respiratory Therapy 01/23/20 02:23 BiPap/CPAP ROUTINE Respiratory Therapy Assessment DAILY Assessment/Plan (1) COPD exacerbation Current Visit: Yes Status: Acute Assessment & Plan: home on po prednisone, has supply. will write for nebs and machine. ok to have abd surgery on sunday as scheduled Code(s): J44.1 - CHRONIC OBSTRUCTIVE PULMONARY DISEASE W (ACUTE) EXACERBATION (2) Anxiety Current Visit: No Status: Acute Code(s): F41.9 - ANXIETY DISORDER, UNSPECIFIED (3) Abdominal mass Current Visit: No Status: Acute Qualifiers: Abdominal location: right lower quadrant Qualified Code(s): R19.03 - Right lower quadrant abdominal swelling, mass and lump Code(s): R19.00 - INTRA-ABD AND PELVIC SWELLING, MASS AND LUMP, UNSP SITE Hospital Summary - Vitals & Intake/Output Vital Signs: Vital Signs Temperature 98.6 F 01/23/20 06:56 Pulse Rate 68 01/23/20 07:01 Respiratory Rate 20 01/23/20 07:01 Blood Pressure 130/62 01/23/20 06:56 O2 Sat by Pulse Oximetry 89 L 01/23/20 07:01 Intake & Output: Intake & Output 01/20/20 01/21/20 01/22/20 01/23/20 11:59 11:59 11:59 11:59 Weight 130.1 kg - Lab Result Diagrams: 01/23/20 05:50 01/23/20 05:50 Lab Results-Last 24 Hrs: Lab Results-Last 24 Hours 01/22/20 01/22/20 01/22/20 Range/Units 00:00 17:50 17:50 WBC (4.0-10.5) K/mm3 RBC (4.1-5.4) M/mm3 Hgb (12.0-16.0) gm/dl Hct (35-47) % MCV (78-100) fl MCH (26-32) pg MCHC (32-36) g/dl RDW (11.5-14.0) % Plt Count (150-450) K/mm3 MPV (7.5-11.0) fl Gran % (36.0-66.0) % Eos # (Auto) (0-0.5) Absolute Lymphs (auto) (1.0-4.6) Absolute Monos (auto) (0.0-1.3) Lymphocytes % (24.0-44.0) % Monocytes % (0.0-12.0) % Eosinophils % (0.00-5.0) % Basophils % (0.0-0.4) % Absolute Granulocytes (1.4-6.9) Basophils # (0-0.4) D-Dimer (215-500) ng/mL Puncture Site RIGHT RADIAL pCO2 46 H (35-45) mmHg pO2 103 H (75-100) mmHg Base Excess 11.2 H (-2.0-2.0) O2 Saturation 90.6 L (94-100) g/dF ABG pH 7.50 H (7.35-7.45) ABG HCO3 35.9 H* (22-28) ABG O2 Sat (Measured) 98.5 (95-100) % Junior Test YES A-a Gradient 39 a/A Ratio 0.73 Hemoglobin 13.5 Carboxyhemoglobin 7.2 H* (0.0-6.9) % THgb Methemoglobin 0.9 L (1.4-1.5) % Potassium 3.9 (3.5-5.1) Temperature 37.0 C POC O2 Flow Rate 28 % Vent Mode PEEP cmH2O Sodium (137-145) mmol/L Chloride (98-107) mmol/L Carbon Dioxide (22-30) mmol/L Anion Gap (5-15) MEQ/L BUN (7-17) mg/dL Creatinine (0.52-1.04) mg/dL Estimated GFR ML/MIN Glucose (74-106) mg/dL Lactic Acid 0.8 (0.4-2.0) Calcium (8.4-10.2) mg/dL Magnesium (1.6-2.3) mg/dL Total Bilirubin (0.2-1.3) mg/dL AST (14-36) U/L ALT (0-35) U/L Alkaline Phosphatase (38-126) U/L Troponin I < 0.012 (0.000-0.034) ng/mL NT-Pro-B Natriuret Pep (0-900) pg/mL Serum Total Protein (6.3-8.2) g/dL Albumin (3.5-5.0) g/dL Urine Color (YELLOW) Urine Appearance (CLEAR) Urine pH (5-6) Ur Specific Peel (1.005-1.025) Urine Protein (Negative) Urine Ketones (NEGATIVE) Urine Blood (0-5) Lui/ul Urine Nitrite (NEGATIVE) Urine Bilirubin (NEGATIVE) Urine Urobilinogen (0-1) mg/dL Ur Leukocyte Esterase (NEGATIVE) Urine WBC (Auto) (0-5) /HPF Urine RBC (Auto) (0-2) /HPF U Epithel Cells (Auto) (FEW) /HPF Urine Bacteria (Auto) (NEGATIVE) /HPF Urine Mucus (Auto) (NEGATIVE) /HPF Urine Culture Reflexed (NO) Urine Glucose (NEGATIVE) mg/dL SARS-CoV-2 (PCR) (NEGATIVE) 01/22/20 01/22/20 01/22/20 Range/Units 18:03 18:03 18:03 WBC 9.7 (4.0-10.5) K/mm3 RBC 4.23 (4.1-5.4) M/mm3 Hgb 13.0 (12.0-16.0) gm/dl Hct 41.7 (35-47) % MCV 98.6 (78-100) fl MCH 30.7 (26-32) pg MCHC 31.2 L (32-36) g/dl RDW 15.0 H (11.5-14.0) % Plt Count 296 (150-450) K/mm3 MPV 9.1 (7.5-11.0) fl Gran % 61.1 (36.0-66.0) % Eos # (Auto) 0.28 (0-0.5) Absolute Lymphs (auto) 2.58 (1.0-4.6) Absolute Monos (auto) 0.82 (0.0-1.3) Lymphocytes % 26.7 (24.0-44.0) % Monocytes % 8.5 (0.0-12.0) % Eosinophils % 2.9 (0.00-5.0) % Basophils % 0.8 (0.0-0.4) % Absolute Granulocytes 5.92 (1.4-6.9) Basophils # 0.08 (0-0.4) D-Dimer 877 H* (215-500) ng/mL Puncture Site pCO2 (35-45) mmHg pO2 (75-100) mmHg Base Excess (-2.0-2.0) O2 Saturation (94-100) g/dF ABG pH (7.35-7.45) ABG HCO3 (22-28) ABG O2 Sat (Measured) (95-100) % Junior Test A-a Gradient a/A Ratio Hemoglobin Carboxyhemoglobin (0.0-6.9) % THgb Methemoglobin (1.4-1.5) % Potassium 3.8 (3.5-5.1) Temperature C POC O2 Flow Rate % Vent Mode PEEP cmH2O Sodium 139 (137-145) mmol/L Chloride 103 (98-107) mmol/L Carbon Dioxide 31 H (22-30) mmol/L Anion Gap 9.1 (5-15) MEQ/L BUN 13 (7-17) mg/dL Creatinine 0.50 L (0.52-1.04) mg/dL Estimated GFR > 60.0 ML/MIN Glucose 114 H (74-106) mg/dL Lactic Acid (0.4-2.0) Calcium 9.6 (8.4-10.2) mg/dL Magnesium 2.2 (1.6-2.3) mg/dL Total Bilirubin 0.30 (0.2-1.3) mg/dL AST 16 (14-36) U/L ALT 15 (0-35) U/L Alkaline Phosphatase 71 (38-126) U/L Troponin I (0.000-0.034) ng/mL NT-Pro-B Natriuret Pep 71.6 (0-900) pg/mL Serum Total Protein 7.6 (6.3-8.2) g/dL Albumin 4.0 (3.5-5.0) g/dL Urine Color (YELLOW) Urine Appearance (CLEAR) Urine pH (5-6) Ur Specific Peel (1.005-1.025) Urine Protein (Negative) Urine Ketones (NEGATIVE) Urine Blood (0-5) Lui/ul Urine Nitrite (NEGATIVE) Urine Bilirubin (NEGATIVE) Urine Urobilinogen (0-1) mg/dL Ur Leukocyte Esterase (NEGATIVE) Urine WBC (Auto) (0-5) /HPF Urine RBC (Auto) (0-2) /HPF U Epithel Cells (Auto) (FEW) /HPF Urine Bacteria (Auto) (NEGATIVE) /HPF Urine Mucus (Auto) (NEGATIVE) /HPF Urine Culture Reflexed (NO) Urine Glucose (NEGATIVE) mg/dL SARS-CoV-2 (PCR) (NEGATIVE) 01/22/20 01/22/20 01/22/20 Range/Units 18:04 18:45 20:51 WBC (4.0-10.5) K/mm3 RBC (4.1-5.4) M/mm3 Hgb (12.0-16.0) gm/dl Hct (35-47) % MCV (78-100) fl MCH (26-32) pg MCHC (32-36) g/dl RDW (11.5-14.0) % Plt Count (150-450) K/mm3 MPV (7.5-11.0) fl Gran % (36.0-66.0) % Eos # (Auto) (0-0.5) Absolute Lymphs (auto) (1.0-4.6) Absolute Monos (auto) (0.0-1.3) Lymphocytes % (24.0-44.0) % Monocytes % (0.0-12.0) % Eosinophils % (0.00-5.0) % Basophils % (0.0-0.4) % Absolute Granulocytes (1.4-6.9) Basophils # (0-0.4) D-Dimer (215-500) ng/mL Puncture Site pCO2 (35-45) mmHg pO2 (75-100) mmHg Base Excess (-2.0-2.0) O2 Saturation (94-100) g/dF ABG pH (7.35-7.45) ABG HCO3 (22-28) ABG O2 Sat (Measured) (95-100) % Junior Test A-a Gradient a/A Ratio Hemoglobin Carboxyhemoglobin (0.0-6.9) % THgb Methemoglobin (1.4-1.5) % Potassium (3.5-5.1) Temperature C POC O2 Flow Rate % Vent Mode PEEP cmH2O Sodium (137-145) mmol/L Chloride (98-107) mmol/L Carbon Dioxide (22-30) mmol/L Anion Gap (5-15) MEQ/L BUN (7-17) mg/dL Creatinine (0.52-1.04) mg/dL Estimated GFR ML/MIN Glucose (74-106) mg/dL Lactic Acid (0.4-2.0) Calcium (8.4-10.2) mg/dL Magnesium (1.6-2.3) mg/dL Total Bilirubin (0.2-1.3) mg/dL AST (14-36) U/L ALT (0-35) U/L Alkaline Phosphatase (38-126) U/L Troponin I < 0.012 < 0.012 (0.000-0.034) ng/mL NT-Pro-B Natriuret Pep (0-900) pg/mL Serum Total Protein (6.3-8.2) g/dL Albumin (3.5-5.0) g/dL Urine Color YELLOW (YELLOW) Urine Appearance SLIGHTLY CLOUDY (CLEAR) Urine pH 6.0 (5-6) Ur Specific Peel 1.010 (1.005-1.025) Urine Protein NEGATIVE (Negative) Urine Ketones NEGATIVE (NEGATIVE) Urine Blood NEGATIVE (0-5) Lui/ul Urine Nitrite NEGATIVE (NEGATIVE) Urine Bilirubin NEGATIVE (NEGATIVE) Urine Urobilinogen NEGATIVE (0-1) mg/dL Ur Leukocyte Esterase NEGATIVE (NEGATIVE) Urine WBC (Auto) NONE (0-5) /HPF Urine RBC (Auto) NONE (0-2) /HPF U Epithel Cells (Auto) RARE (FEW) /HPF Urine Bacteria (Auto) NONE (NEGATIVE) /HPF Urine Mucus (Auto) SLIGHT (NEGATIVE) /HPF Urine Culture Reflexed NO (NO) Urine Glucose NEGATIVE (NEGATIVE) mg/dL SARS-CoV-2 (PCR) (NEGATIVE) 01/22/20 01/23/20 01/23/20 Range/Units 21:35 02:51 05:50 WBC (4.0-10.5) K/mm3 RBC (4.1-5.4) M/mm3 Hgb (12.0-16.0) gm/dl Hct (35-47) % MCV (78-100) fl MCH (26-32) pg MCHC (32-36) g/dl RDW (11.5-14.0) % Plt Count (150-450) K/mm3 MPV (7.5-11.0) fl Gran % (36.0-66.0) % Eos # (Auto) (0-0.5) Absolute Lymphs (auto) (1.0-4.6) Absolute Monos (auto) (0.0-1.3) Lymphocytes % (24.0-44.0) % Monocytes % (0.0-12.0) % Eosinophils % (0.00-5.0) % Basophils % (0.0-0.4) % Absolute Granulocytes (1.4-6.9) Basophils # (0-0.4) D-Dimer (215-500) ng/mL Puncture Site pCO2 (35-45) mmHg pO2 (75-100) mmHg Base Excess (-2.0-2.0) O2 Saturation (94-100) g/dF ABG pH (7.35-7.45) ABG HCO3 (22-28) ABG O2 Sat (Measured) (95-100) % Junior Test A-a Gradient a/A Ratio Hemoglobin Carboxyhemoglobin (0.0-6.9) % THgb Methemoglobin (1.4-1.5) % Potassium (3.5-5.1) Temperature C POC O2 Flow Rate % Vent Mode PEEP cmH2O Sodium (137-145) mmol/L Chloride (98-107) mmol/L Carbon Dioxide (22-30) mmol/L Anion Gap (5-15) MEQ/L BUN (7-17) mg/dL Creatinine (0.52-1.04) mg/dL Estimated GFR ML/MIN Glucose (74-106) mg/dL Lactic Acid (0.4-2.0) Calcium (8.4-10.2) mg/dL Magnesium (1.6-2.3) mg/dL Total Bilirubin (0.2-1.3) mg/dL AST (14-36) U/L ALT (0-35) U/L Alkaline Phosphatase (38-126) U/L Troponin I < 0.012 < 0.012 (0.000-0.034) ng/mL NT-Pro-B Natriuret Pep (0-900) pg/mL Serum Total Protein (6.3-8.2) g/dL Albumin (3.5-5.0) g/dL Urine Color (YELLOW) Urine Appearance (CLEAR) Urine pH (5-6) Ur Specific Peel (1.005-1.025) Urine Protein (Negative) Urine Ketones (NEGATIVE) Urine Blood (0-5) Lui/ul Urine Nitrite (NEGATIVE) Urine Bilirubin (NEGATIVE) Urine Urobilinogen (0-1) mg/dL Ur Leukocyte Esterase (NEGATIVE) Urine WBC (Auto) (0-5) /HPF Urine RBC (Auto) (0-2) /HPF U Epithel Cells (Auto) (FEW) /HPF Urine Bacteria (Auto) (NEGATIVE) /HPF Urine Mucus (Auto) (NEGATIVE) /HPF Urine Culture Reflexed (NO) Urine Glucose (NEGATIVE) mg/dL SARS-CoV-2 (PCR) NEGATIVE (NEGATIVE) 01/23/20 01/23/20 01/23/20 Range/Units 05:50 05:50 05:56 WBC 10.4 (4.0-10.5) K/mm3 RBC 4.21 (4.1-5.4) M/mm3 Hgb 13.0 (12.0-16.0) gm/dl Hct 41.7 (35-47) % MCV 99.0 (78-100) fl MCH 30.9 (26-32) pg MCHC 31.2 L (32-36) g/dl RDW 15.0 H (11.5-14.0) % Plt Count 271 (150-450) K/mm3 MPV 9.2 (7.5-11.0) fl Gran % (36.0-66.0) % Eos # (Auto) (0-0.5) Absolute Lymphs (auto) (1.0-4.6) Absolute Monos (auto) (0.0-1.3) Lymphocytes % (24.0-44.0) % Monocytes % (0.0-12.0) % Eosinophils % (0.00-5.0) % Basophils % (0.0-0.4) % Absolute Granulocytes (1.4-6.9) Basophils # (0-0.4) D-Dimer (215-500) ng/mL Puncture Site RIGHT RADIAL pCO2 35 (35-45) mmHg pO2 78 (75-100) mmHg Base Excess 7.2 H (-2.0-2.0) O2 Saturation 89.8 L (94-100) g/dF ABG pH 7.54 H (7.35-7.45) ABG HCO3 29.9 H* (22-28) ABG O2 Sat (Measured) 98.9 (95-100) % Junior Test YES A-a Gradient 78 a/A Ratio 0.50 Hemoglobin 13.5 Carboxyhemoglobin 8.1 H* (0.0-6.9) % THgb Methemoglobin 1.1 L (1.4-1.5) % Potassium 3.9 4.0 (3.5-5.1) Temperature 37.0 C POC O2 Flow Rate 28 % Vent Mode CPAP PEEP 12.0 cmH2O Sodium 136 L (137-145) mmol/L Chloride 101 (98-107) mmol/L Carbon Dioxide 28 (22-30) mmol/L Anion Gap 10.4 (5-15) MEQ/L BUN 12 (7-17) mg/dL Creatinine 0.47 L (0.52-1.04) mg/dL Estimated GFR > 60.0 ML/MIN Glucose 241 H (74-106) mg/dL Lactic Acid (0.4-2.0) Calcium 9.5 (8.4-10.2) mg/dL Magnesium (1.6-2.3) mg/dL Total Bilirubin 0.30 (0.2-1.3) mg/dL AST 17 (14-36) U/L ALT 16 (0-35) U/L Alkaline Phosphatase 66 (38-126) U/L Troponin I (0.000-0.034) ng/mL NT-Pro-B Natriuret Pep (0-900) pg/mL Serum Total Protein 7.3 (6.3-8.2) g/dL Albumin 3.8 (3.5-5.0) g/dL Urine Color (YELLOW) Urine Appearance (CLEAR) Urine pH (5-6) Ur Specific [place] (1.005-1.025) Urine Protein (Negative) Urine Ketones (NEGATIVE) Urine Blood (0-5) Lui/ul Urine Nitrite (NEGATIVE) Urine Bilirubin (NEGATIVE) Urine Urobilinogen (0-1) mg/dL Ur Leukocyte Esterase (NEGATIVE) Urine WBC (Auto) (0-5) /HPF Urine RBC (Auto) (0-2) /HPF U Epithel Cells (Auto) (FEW) /HPF Urine Bacteria (Auto) (NEGATIVE) /HPF Urine Mucus (Auto) (NEGATIVE) /HPF Urine Culture Reflexed (NO) Urine Glucose (NEGATIVE) mg/dL SARS-CoV-2 (PCR) (NEGATIVE) - Radiology Exams Ordered Rad Exams-Entire Visit: Radiology Procedures Category Date Time Status CHEST 1 VIEW (PORTABLE) Stat Exams 01/22/20 17:39 Taken CHEST WITH CONTRAST [CT] Stat Exams 01/22/20 18:33 Taken - Procedures and Test Procedures and Tests throughout Hospitalization: Therapy Orders & Screens 01/23/20 01:56 RT Screen per Nursing Assess ONCE Comment: Protocol Order Physician Instructions: Greater than 3 points order RT Admission Screen Reason For Exam: Triggered on Admission Diagnosis: COPD Exacerbation, Hypoxia Diagnosis: COPD Exacerbation, Hypoxia Pneumonia: No Home O2: No Asthma: Yes CHF: No Home CPAP/BIPAP: Yes: bipap Home Nebs/MDI: Yes Total Points: 14 Smoking Cessation Education ONCE Comment: Diagnosis: COPD Exacerbation, Hypoxia Smoking Status: Current every day smoker How long have you smoked: 40 Have you smoked in the past 12 months: Yes Approximately how many cigarettes per day: 1 pack Do you dip or chew tobacco: No 01/23/20 02:23 BiPap/CPAP ROUTINE Comment: Diagnosis: COPD Exacerbation, Hypoxia Respiratory Therapy Assessment DAILY Comment: Diagnosis: COPD Exacerbation, Hypoxia - Discharge Disposition: Home, Self-Care Condition: Stable Prescriptions: New Albuterol/Ipratropium 3ml Neb* [DUONEB 0.5-3 MG/3 ml Neb] 3 ml IH Q6H PRN PRN #100 ampul.neb PRN Reason: Shortness Of Breath Nebulizer and Compressor [Easy Air Compressor Nebulizer] 1 each UD #1 each Doxycycline Hyclate 100 mg [Vibramycin 100 MG] 100 mg PO BID #10 tab Continue predniSONE [Prednisone] 5 mg PO BID Metformin HCl 500 mg PO BID Lisinopril/Hydrochlorothiazide [Lisinopril-Hctz 20-25 mg Tab] 20 - 25 mg PO DAILY Fluticasone Propion/Salmeterol [Wixela 250-50 Inhub] 1 puffs PO BID Duloxetine HCl 30 mg PO DAILY Duloxetine HCl 60 mg PO DAILY Carvedilol 3.125 mg [Coreg 3.125 MG] 3.125 mg PO BID Albuterol Sulfate Mdi [Proair Hfa MDI] 8.5 gm IN QID PRN PRN Reason: COPD Follow up with: TATUM MINER MD [Primary Care Provider] - 1 Week
[2020-01-23] MEDS ORDERED: ALBUTEROL SULFATE MDI IN PRN (08:54)
[2020-01-23] MEDS ORDERED: Advair Hfa 115/21 Common canister IH SCH (09:00)
[2020-01-23] MEDS ORDERED: VENTOLIN COMMON CANISTER IH PRN (09:02)
--- NOTE | 2020-01-23 09:26 | XRAY ---
Indication: Short of breath. Elevated d-dimer. Multiple contiguous axial images obtained through the chest using 80 cc Isovue 370 contrast and PE protocol. Comparison: None There is good opacification of the pulmonary arteries to include the lobar and segmental branches. No pulmonary embolus. Heart is not enlarged. Aorta is normal in course and caliber. A few small mediastinal and right hilar calcified nodes. No pathologic mediastinal/hilar lymphadenopathy. Lungs inflated with mild pulmonary emphysema, minimal scattered fibrosis/scarring, and small right lower lobe calcified granuloma. No suspicious pulmonary mass, infiltrate, or effusion. Bony thorax intact. Limited upper abdomen demonstrates fatty liver. Impression: 1. Negative pulmonary embolus. No acute cardiopulmonary abnormalities. 2. Incidental pulmonary emphysema, fatty liver, and old granulomatous disease.
--- NOTE | 2020-01-23 09:26 | XRAY ---
Indication: Short of breath. Comparison: August 25, 2019. Portable chest again hyperinflated and clear with incidental calcified granulomas. Heart is not enlarged. Bony thorax intact. No new/acute findings.
[2020-01-23] MEDS ORDERED: Coreg 3.125 MG PO SCH (10:00)
[2020-01-23] MEDS ORDERED: DELTASONE 5 MG PO SCH (10:00)
[2020-01-23] MEDS ORDERED: Cymbalta 30 MG Capsule PO SCH (10:00)
[2020-01-23] MEDS ORDERED: hydroDIURIL 25 MG PO SCH (10:00)
[2020-01-23] MEDS ORDERED: Zestril 20 MG PO SCH (10:00)
[2020-01-23] MEDS: VIBRAMYCIN 100 MG*** 100 MG in Dextrose 5%/Water IV Soln. 100ML PLUS BAG 100 ML IV SCH (10:18)
[2020-01-23 10:48] VITALS: PULSE 62; O2SAT 95
[2020-01-23 11:07] VITALS: BP 125/71
[2020-01-25] MEDS ORDERED: Glucophage 500 MG PO SCH (08:00)
== END 2020-01-23 12:37 | disposition home or self-care (01) ==
LOC: ED 17:31 → MED SURG 01-23 01:27
PROVIDERS: ADMIT Family Medicine; ATTEND Family Medicine
DX: J44.1 Chronic obstructive pulmonary disease with (acute) exacerbation (principal); R09.02 Hypoxemia; R19.00 Intra-abdominal and pelvic swelling, mass and lump, unspecified site; I10 Essential (primary) hypertension; E11.9 Type 2 diabetes mellitus without complications; Z85.41 Personal history of malignant neoplasm of cervix uteri; F41.9 Anxiety disorder, unspecified; Z79.899 Other long term (current) drug therapy; F17.200 Nicotine dependence, unspecified, uncomplicated
CPT/HCPCS: 36000; 36415; 36600; 71045; 71260; 80053; 81001; 82375; 82803; 82962; 83036; 83605; 83735; 83880; 84484; 85025; 85027; 85379; 87040; 93005; 93041; 94640; 94660; 94760; 96365; 96374; 99284; U0003; 93268; J2930; J7609; A9270-GY; G0378

== ENCOUNTER 2020-03-20 03:28 | Emergency (ER) | payer MEDICARE ==
[2020-03-20] MEDS ORDERED: DUONEB 0.5-3 MG/3 ml Neb IH ONE ×2 (04:05→04:11)
[2020-03-20] MEDS ORDERED: ROCEPHIN 1 Gm-D5w 50 ml Bag** 1 G/50 ML IVPB IV STA (04:05)
[2020-03-20] MEDS ORDERED: solu-MEDROL 125 MG IV ONE (04:05)
[2020-03-20] MEDS ORDERED: Sodium Chloride 0.9% 1000 ML 1,000 ML IV SCH (04:15)
[2020-03-20] MEDS ORDERED: solu-MEDROL 125 MG ONE (04:51)
[2020-03-20] MEDS ORDERED: ROCEPHIN 1 Gm-D5w 50 ml Bag** 1 G/50 ML IVPB IV ONE (04:51)
[2020-03-20] MEDS ORDERED: Sodium Chloride 0.9% 1000 ML 1,000 ML ONE (04:51)
--- NOTE | 2020-03-20 04:51 | ERPHSYRPT ---
- History of Present Illness Time Seen by Provider: 03/20/20 03:57 Source: patient Exam Limitations: no limitations Patient Subjective Stated Complaint: "I can't catch my breath. It's worse when I'm walking." Triage Nursing Assessment: Patient reported a 2 week onset of increased dyspnea and productive cough. Patient reported needing to utilize her home nebulizer to every four hours. Patient denied headache. Reported intermittent dizziness and sinus pressure. Denied any home oxygen therapy. Denied nausea, vomiting, or diarrhea. head atraumatic normocephalic. Pupils 3mm brisk direct and consensual reaction. Oral mucosa pink/moist without lesions. Neck supple non-tender with trachea midline. No noted lymphadenopathy. Symmetrical chest expansion. Heart tones S1 S2 regular rate and rhythm. lungs with diffuse inspiratory/expiratory wheezes in the lower lungs carter. No noted accessory muscle use. Abdomen obese non-distended without hepatosplenomegaly. Peripheral pulses +2 bilateral without dependent edema. Physician History: 54yo female with COPD cough , SOB x 2 weeks Sts she feels like she has COVID. No fever. Home tx not helping despite q4hr txs. No home O2. [place] admitted 01/21 for same. Timing/Duration: week(s) (2), worse Activities at Onset: none Severity of Dyspnea-Max: severe Severity of Dyspnea-Current: severe Possible Cause: frequent episodes Modifying Factors: Improves With: activity, coughing, exertion Associated Symptoms: constant, cough, wheezing Allergies/Adverse Reactions: amoxicillin [Amoxicillin] Allergy (Severe, Verified 03/20/20 03:33) Rash aripiprazole [From Abilify] Allergy (Severe, Verified 03/20/20 03:33) Swelling Confusion metronidazole [From Flagyl] Allergy (Severe, Verified 03/20/20 03:33) Rash Boil Rash Metronidazole HCl [From Flagyl] Allergy (Severe, Verified 03/20/20 03:33) Rash Boil Rash Penicillins Allergy (Severe, Verified 03/20/20 03:33) Rash Boil Rash quetiapine fumarate [From Seroquel] Allergy (Severe, Verified 03/20/20 03:33) Swelling Confusion azithromycin [From Zithromax] Allergy (Mild, Verified 03/20/20 03:33) codeine [Codeine] Allergy (Mild, Verified 03/20/20 03:33) Nausea Pt states that the room is spinning trazodone Adverse Reaction (Mild, Verified 03/20/20 03:33) Pt states that she was blind for a few 3-4 seconds Home Medications: Albuterol Sulfate Mdi [Proair Hfa MDI] 8.5 gm IN QID PRN 08/23/19 [History] Carvedilol 3.125 mg [Coreg 3.125 MG] 3.125 mg PO BID 08/23/19 [History] Duloxetine HCl 30 mg PO DAILY 08/23/19 [History] Duloxetine HCl 60 mg PO DAILY 08/23/19 [History] Fluticasone Propion/Salmeterol [Wixela 250-50 Inhub] 1 puffs PO BID 08/23/19 [History] Lisinopril/Hydrochlorothiazide [Lisinopril-Hctz 20-25 mg Tab] 20 - 25 mg PO DAILY 08/23/19 [History] Metformin HCl 500 mg PO BID 08/23/19 [History] predniSONE [Prednisone] 5 mg PO BID 08/23/19 [History] Hx Tetanus, Diphtheria Vaccination/Date Given: No Hx Influenza Vaccination/Date Given: No Hx Pneumococcal Vaccination/Date Given: No Travel Risk - International Travel Have you traveled outside of the country in past 3 weeks: No - Coronavirus Screening Are you exhibiting any of the following symptoms?: Yes Symptoms: Cough: New Onset, Shortness of Breath, Loss of Taste or Smell Close contact with a COVID-19 positive Pt in past 14-21 Days: No - Review of Systems Constitutional: Malaise, No Fever, No Chills Eyes: No Symptoms Ears, Nose, & Throat: No Symptoms Respiratory: Cough, Dyspnea Cardiac: No Chest Pain, No Edema, No Syncope Abdominal/Gastrointestinal: No Abdominal Pain, No Nausea, No Vomiting, No Diarrh ea Genitourinary Symptoms: No Dysuria Musculoskeletal: No Back Pain, No Neck Pain Skin: No Rash Neurological: No Dizziness, No Focal Weakness, No Sensory Changes Psychological: No Symptoms Endocrine: No Symptoms All Other Systems: Reviewed and Negative - Past Medical History Pertinent Past Medical History: Yes Neurological History: No Pertinent History ENT History: No Pertinent History Cardiac History: Hypertension Respiratory History: Bronchitis, COPD, Other Endocrine Medical History: Diabetes Type II Musculoskeletal History: Rheumatoid Arthritis GI Medical History: No Pertinent History History: No Pertinent History Psycho-Social History: Anxiety, Bipolar, Depression Female Reproductive Disorders: Cervical Cancer Other Medical History: Ovarian mass, hernia - Past Surgical History Past Surgical History: Yes Neuro Surgical History: No Pertinent History Cardiac: No Pertinent History Respiratory: No Pertinent History Gastrointestinal: No Pertinent History Genitourinary: No Pertinent History Musculoskeletal: Orthopedic Surgery Female Surgical History: Tubal Ligation Other Surgical History: Ankle surgery. Knee drained and wash - Social History Smoking Status: Current every day smoker How long have you smoked: 40 Exposure to second hand smoke: No Drug Use: none Patient Lives Alone: No - Nursing Vital Signs Nursing Vital Signs: Initial Vital Signs Temperature 98.3 F 03/20/20 03:28 Pulse Rate 96 H 03/20/20 03:28 Respiratory Rate 22 03/20/20 03:28 Blood Pressure 148/111 03/20/20 03:28 O2 Sat by Pulse Oximetry 88 L 03/20/20 03:28 Pain Scale Pain Intensity 0 - Physical Exam General Appearance: mild distress, alert Eye Exam: PERRL/EOMI Neck Exam: normal inspection, supple Respiratory Exam: respiratory distress, diminished breath sounds, wheezing (Bilat bases) Cardiovascular/Chest Exam: normal heart sounds, regular rate/rhythm Abdominal/Gastrointestinal Exam: soft, No tenderness, No distention, No mass Extremity Exam: non-tender, normal range of motion, normal inspection, no calf tenderness, no pedal edema Neurologic Exam: alert, oriented x 3, cooperative, grounding engineer II-XII nml as tested, sensation nml, No motor deficits Skin Exam: normal color, warm, No dry SpO2: 93 - Course Nursing assessment & vital signs reviewed: Yes EKG Interpreted by Me: RATE (67), Sinus Rhythm, NORMAL AXIS, NORMAL INTERVALS, Right Bundle Branch Block, Non-specific ST Changes - Radiology Exams Chest X-ray Interpretation: Interpreted by me, No Pneumonia, No Infiltrates Ordered Tests: Active Orders 24 hr Category Date Time Status EKG-ER Only STAT Care 03/20/20 04:05 Active IV Insertion STAT Care 03/20/20 04:05 Active Oxygen-ED Only Nasal Cannula 2 lpm Care 03/20/20 04:05 Active CHEST 1 VIEW (PORTABLE) Stat Exams 03/20/20 03:57 Taken BLOOD CULTURE Stat Lab 03/20/20 05:00 Received CBC W DIFF Stat Lab 03/20/20 04:45 Completed CMP Stat Lab 03/20/20 04:45 Completed D-DIMER QUANTITATIVE Stat Lab 03/20/20 04:45 Completed Lactic Acid Stat Lab 03/20/20 04:43 Completed MAGNESIUM Stat Lab 03/20/20 04:45 Completed NT PRO BNP Stat Lab 03/20/20 04:45 Completed PROTIME WITH INR Stat Lab 03/20/20 04:45 Completed PTT Stat Lab 03/20/20 04:45 Completed TROPONIN Stat Lab 03/20/20 04:45 Completed UA W/RFX UR CULTURE Stat Lab 03/20/20 04:45 Completed Respiratory Therapy Assessment DAILY RT 03/20/20 04:13 Active Medication Summary Generic Name Dose Route Start Last Admin Trade Name Freq PRN Reason Stop Dose Admin Sodium Chloride 1,000 mls @ 100 mls/hr 03/20/20 04:15 03/20/20 06:40 Sodium Chloride 0.9% 1000 Ml IV 04/19/20 04:14 0 mls/hr .Q10H ISABEL Infusion Discontinued Medications Generic Name Dose Route Start Last Admin Trade Name Freq PRN Reason Stop Dose Admin Albuterol/Ipratropium 3 ml 03/20/20 04:05 03/20/20 04:18 Duoneb 0.5-3 Mg/3 Ml Neb IH 03/20/20 04:06 3 ml STAT ONE Administration Albuterol/Ipratropium Confirm 03/20/20 04:11 Duoneb 0.5-3 Mg/3 Ml Neb Administered 03/20/20 04:12 Dose 3 ml IH .STK-MED ONE Ceftriaxone Sodium/Dextrose 1 g in 50 mls @ 100 mls/hr 03/20/20 04:05 03/20/20 04:58 Rocephin 1 Gm-D5w 50 Ml Bag IV 03/20/20 04:34 100 mls/hr STAT STA 100 mls/hr Administration Ceftriaxone Sodium/Dextrose Confirm 03/20/20 04:51 Rocephin 1 Gm-D5w 50 Ml Bag Administered 03/20/20 04:52 Dose 1 g in 50 mls @ ud IV .STK-MED ONE Methylprednisolone Sodium Succinate 125 mg 03/20/20 04:05 03/20/20 04:57 Solu-Medrol 125 Mg IV 03/20/20 04:06 125 mg STAT ONE Administration Methylprednisolone Sodium Succinate Confirm 03/20/20 04:51 Solu-Medrol 125 Mg Administered 03/20/20 04:52 Dose 125 mg .ROUTE .STK-MED ONE Lab/Rad Data: Laboratory Result Diagrams 03/20/20 04:45 03/20/20 04:45 Laboratory Results 03/20/20 03/20/20 03/20/20 Range/Units 04:45 04:45 04:45 WBC (4.0-10.5) K/mm3 RBC (4.1-5.4) M/mm3 Hgb (12.0-16.0) gm/dl Hct (35-47) % MCV (78-100) fl MCH (26-32) pg MCHC (32-36) g/dl RDW (11.5-14.0) % Plt Count (150-450) K/mm3 MPV (7.5-11.0) fl Gran % (36.0-66.0) % Eos # (Auto) (0-0.5) Absolute Lymphs (auto) (1.0-4.6) Absolute Monos (auto) (0.0-1.3) Lymphocytes % (24.0-44.0) % Monocytes % (0.0-12.0) % Eosinophils % (0.00-5.0) % Basophils % (0.0-0.4) % Absolute Granulocytes (1.4-6.9) Basophils # (0-0.4) PT 11.5 (9.95-12.35) SECONDS INR 1.02 (0.8-3.0) APTT 28.8 (25.3-37.0) SECONDS D-Dimer 646 H* (215-500) ng/mL Sodium (137-145) mmol/L Potassium (3.5-5.1) mmol/L Chloride (98-107) mmol/L Carbon Dioxide (22-30) mmol/L Anion Gap (5-15) MEQ/L BUN (7-17) mg/dL Creatinine (0.52-1.04) mg/dL Estimated GFR ML/MIN Glucose (74-106) mg/dL Lactic Acid (0.4-2.0) Calcium (8.4-10.2) mg/dL Magnesium (1.6-2.3) mg/dL Total Bilirubin (0.2-1.3) mg/dL AST (14-36) U/L ALT (0-35) U/L Alkaline Phosphatase (38-126) U/L Troponin I < 0.012 (0.000-0.034) ng/mL NT-Pro-B Natriuret Pep (0-900) pg/mL Serum Total Protein (6.3-8.2) g/dL Albumin (3.5-5.0) g/dL Urine Color YELLOW (YELLOW) Urine Appearance SLIGHTLY CLOUDY (CLEAR) Urine pH 5.0 (5-6) Ur Specific [place] 1.025 (1.005-1.025) Urine Protein NEGATIVE (Negative) Urine Ketones NEGATIVE (NEGATIVE) Urine Blood NEGATIVE (0-5) Lui/ul Urine Nitrite NEGATIVE (NEGATIVE) Urine Bilirubin NEGATIVE (NEGATIVE) Urine Urobilinogen NEGATIVE (0-1) mg/dL Ur Leukocyte Esterase NEGATIVE (NEGATIVE) Urine WBC (Auto) 3-5 (0-5) /HPF Urine RBC (Auto) 3-5 (0-2) /HPF U Epithel Cells (Auto) FEW (FEW) /HPF Urine Bacteria (Auto) NONE (NEGATIVE) /HPF Urine Mucus (Auto) SLIGHT (NEGATIVE) /HPF Urine Culture Reflexed NO (NO) Urine Glucose NEGATIVE (NEGATIVE) mg/dL 03/20/20 03/20/20 03/20/20 Range/Units 04:45 04:45 04:43 WBC 11.2 H (4.0-10.5) K/mm3 RBC 4.24 (4.1-5.4) M/mm3 Hgb 13.2 (12.0-16.0) gm/dl Hct 42.4 (35-47) % MCV 100.0 (78-100) fl MCH 31.1 (26-32) pg MCHC 31.1 L (32-36) g/dl RDW 14.3 H (11.5-14.0) % Plt Count 300 (150-450) K/mm3 MPV 9.6 (7.5-11.0) fl Gran % 59.2 (36.0-66.0) % Eos # (Auto) 0.43 (0-0.5) Absolute Lymphs (auto) 3.02 (1.0-4.6) Absolute Monos (auto) 1.06 (0.0-1.3) Lymphocytes % 26.9 (24.0-44.0) % Monocytes % 9.5 (0.0-12.0) % Eosinophils % 3.8 (0.00-5.0) % Basophils % 0.6 (0.0-0.4) % Absolute Granulocytes 6.63 (1.4-6.9) Basophils # 0.07 (0-0.4) PT (9.95-12.35) SECONDS INR (0.8-3.0) APTT (25.3-37.0) SECONDS D-Dimer (215-500) ng/mL Sodium 140 (137-145) mmol/L Potassium 3.7 (3.5-5.1) mmol/L Chloride 103 (98-107) mmol/L Carbon Dioxide 33 H (22-30) mmol/L Anion Gap 7.6 (5-15) MEQ/L BUN 15 (7-17) mg/dL Creatinine 0.61 (0.52-1.04) mg/dL Estimated GFR > 60.0 ML/MIN Glucose 130 H (74-106) mg/dL Lactic Acid 1.2 (0.4-2.0) Calcium 9.8 (8.4-10.2) mg/dL Magnesium 2.1 (1.6-2.3) mg/dL Total Bilirubin 0.40 (0.2-1.3) mg/dL AST 20 (14-36) U/L ALT 16 (0-35) U/L Alkaline Phosphatase 72 (38-126) U/L Troponin I (0.000-0.034) ng/mL NT-Pro-B Natriuret Pep 86.2 (0-900) pg/mL Serum Total Protein 8.1 (6.3-8.2) g/dL Albumin 4.3 (3.5-5.0) g/dL Urine Color (YELLOW) Urine Appearance (CLEAR) Urine pH (5-6) Ur Specific [place] (1.005-1.025) Urine Protein (Negative) Urine Ketones (NEGATIVE) Urine Blood (0-5) Lui/ul Urine Nitrite (NEGATIVE) Urine Bilirubin (NEGATIVE) Urine Urobilinogen (0-1) mg/dL Ur Leukocyte Esterase (NEGATIVE) Urine WBC (Auto) (0-5) /HPF Urine RBC (Auto) (0-2) /HPF U Epithel Cells (Auto) (FEW) /HPF Urine Bacteria (Auto) (NEGATIVE) /HPF Urine Mucus (Auto) (NEGATIVE) /HPF Urine Culture Reflexed (NO) Urine Glucose (NEGATIVE) mg/dL - Progress Progress: improved Air Movement: good Blood Culture(s) Obtained: Yes Antibiotics given: Yes Counseled pt/family regarding: lab results, diagnosis, need for follow-up, rad results, smoking cessation - Departure Departure Disposition: Home Clinical Impression: COPD (chronic obstructive pulmonary disease) Qualifiers: COPD type: unspecified COPD Qualified Code(s): J44.9 - Chronic obstructive pulmonary disease, unspecified Condition: Stable Critical Care Time: No Referrals: TATUM MINER MD [Primary Care Provider] - Instructions: Chronic Obstructive Pulmonary Disease, Exacerbation of COPD (DC) Additional Instructions: MOnitor symptoms closely Take meds as prescribed. Try prednisone 40mg/day x 5 days Hydration Rest Continue with home NEB txs Follow up with PCP on Sunday if possible for recheck Return to ER if worse. Prescriptions: Prednisone 20 mg [Deltasone 20 mg] 40 mg PO DAILY 5 Days #10 tablet Doxycycline Hyclate 100 mg [Vibramycin 100 MG] 100 mg PO BID #14 tab
[2020-03-20 05:26] LABS: Appearance SLIGHTLY CLOUDY (CLEAR); Bilirubin NEGATIVE (NEGATIVE); Blood NEGATIVE Ery/ul (0-5); Epithelial Cells FEW /HPF (FEW); Glucose NEGATIVE (NEGATIVE); Ketones NEGATIVE (NEGATIVE); Leukocyte Esterase NEGATIVE (NEGATIVE); Mucus SLIGHT /HPF (NEGATIVE); Nitrite NEGATIVE (NEGATIVE); Protein,Urine Dip NEGATIVE (Negative); Specific Gravity 1.025 (1.005-1.025); Urobilinogen NEGATIVE mg/dL (0-1)
[2020-03-20 05:27] LABS: Absolute Neutrophil Ct (ANC) 6.63 (1.4-6.9); BASOPHIL % 0.6 % (0.0-0.4); Basophil (Absolute #) 0.07 (0-0.4); Eosinophil % 3.8 % (0.00-5.0); Eosinophil (Absolute #) 0.43 (0-0.5); Hematocrit 42.4 % (35-47); Hemoglobin 13.2 gm/dl (12.0-16.0); Lymphocyte (Absolute #) 3.02 (1.0-4.6); Lymphocytes % 26.9 % (24.0-44.0); Mean Corpuscular Hemoglobin 31.1 pg (26-32); Mean Corpuscular Hgb Concent. 31.1 g/dl (32-36); Mean Platelet Volume 9.6 fl (7.5-11.0); Monocyte (Absolute #) 1.06 (0.0-1.3); Monocytes % 9.5 % (0.0-12.0); Neutrophil % 59.2 % (36.0-66.0); Platelet Count 300 K/mm3 (150-450); Red Blood Count 4.24 M/mm3 (4.1-5.4); Red Cell Distribution Width 14.3 % (11.5-14.0); White Blood Count 11.2 K/mm3 (4.0-10.5)
[2020-03-20 05:32] LABS: INR 1.02 (0.8-3.0); PROTIME 11.5 SECONDS (9.95-12.35)
[2020-03-20 05:34] LABS: PTT 28.8 SECONDS (25.3-37.0)
[2020-03-20 05:45] LABS: ALBUMIN 4.3 g/dL (3.5-5.0); ALKALINE PHOSPHATASE 72 U/L (38-126); ANION GAP 7.6 MEQ/L (5-15); BLOOD UREA NITROGEN 15 mg/dL (7-17); CHLORIDE 103 mmol/L (98-107); Calcium 9.8 mg/dL (8.4-10.2); Carbon Dioxide 33 mmol/L (22-30); Creatinine 1 0.61 mg/dL (0.52-1.04); EST GLOMERULAR FILTRATION RATE > 60.0 ML/MIN; Glucose 130 mg/dL (74-106); MAGNESIUM 2.1 mg/dL (1.6-2.3); NT PRO BNP 86.2 pg/mL (0-900); Potassium 3.7 mmol/L (3.5-5.1); SGOT/AST 20 U/L (14-36); SGPT/ALT 16 U/L (0-35); SODIUM 140 mmol/L (137-145); Total Protein 8.1 g/dL (6.3-8.2)
[2020-03-20 06:43] VITALS: O2SAT 93
[2020-03-20 07:05] VITALS: BP 120/54; PULSE 91
--- NOTE | 2020-03-20 07:58 | XRAY ---
Indication: Fever, cough, and short of breath. Comparison: January 22, 2020. Portable chest remains hyperinflated and clear with a few incidental tiny calcified granulomas. Heart is not enlarged. Bony thorax intact. No new/acute findings.
== END 2020-03-20 07:01 | disposition home or self-care (01) ==
LOC: ED 03:28
DX: J44.9 Chronic obstructive pulmonary disease, unspecified (principal); R05 Cough; R06.2 Wheezing; Z79.899 Other long term (current) drug therapy; I10 Essential (primary) hypertension; E11.9 Type 2 diabetes mellitus without complications; Z79.84 Long term (current) use of oral hypoglycemic drugs
CPT/HCPCS: 36000; 36415; 71045; 80053; 81001; 83605; 83735; 83880; 84484; 85025; 85379; 85610; 85730; 87040; 93005; 94640; 96360; 96361; 96365; 96374; 99284; J0696; J2930; A9270-GY

== ENCOUNTER 2022-03-08 12:05 | Inpatient (IN) | payer MEDICARE ==
[2022-03-08] MEDS ORDERED: DUONEB 0.5-3 MG/3 ml Neb IH ONE ×2 (12:14→12:15)
[2022-03-08] MEDS ORDERED: solu-MEDROL 125 MG, Sterile H2O 10 ml 2 ML IV ONE ×2 (12:21)
[2022-03-08] MEDS ORDERED: ROCEPHIN 1 Gm-D5w 50 ml Bag** 1 G/50 ML IVPB IV STA (12:21)
[2022-03-08] MEDS ORDERED: Sodium Chloride 0.9% 1000 ML 1,000 ML IV STA (12:21)
[2022-03-08] MEDS ORDERED: Zithromax 500 MG/ 250 ML NaCl Premix 500 MG/250 ML IVPB IV STA (12:21)
[2022-03-08] MEDS ORDERED: MAGNESIUM SULF 2 G/50 ML BAG 2 GM/50 ML PIGGYBACK IV ONE (12:24)
[2022-03-08] MEDS ORDERED: PROVENTIL Solution 2.5 MG/0.5 ML IH SCH (12:25)
[2022-03-08] MEDS ORDERED: ROCEPHIN 1 Gm-D5w 50 ml Bag** 1 G/50 ML IVPB IV ONE (12:46)
[2022-03-08] MEDS ORDERED: solu-MEDROL ONE (12:46)
[2022-03-08] MEDS ORDERED: Sterile H2O 10 ml IJ ONE (12:46)
[2022-03-08] MEDS ORDERED: Sodium Chloride 0.9% 1000 ML 1,000 ML ONE (12:46)
[2022-03-08 12:50] LABS: Absolute Neutrophil Ct (ANC) 14.25 x10^3/uL (1.4-6.9); Basophil (Absolute #) 0.08 x10^3/uL (0-0.4); Eosinophil (Absolute #) 0 x10^3/uL (0-0.5); Hematocrit 47.9 % (35-47); Hemoglobin 14.8 g/dL (12.0-16.0); Lymphocyte (Absolute #) 0.94 x10^3/uL (1.0-4.6); Lymphocytes % 5.6 % (24.0-44.0); Mean Corpuscular Hemoglobin 30.9 pg (26-32); Mean Corpuscular Hgb Concent. 30.9 g/dL (32-36); Mean Platelet Volume 9.4 fL (7.5-11.0); Monocyte (Absolute #) 1.53 x10^3/uL (0.0-1.3); Monocytes % 9.1 % (0.0-12.0); Neutrophil % 84.5 % (36.0-66.0); Platelet Count 282 x10^3/uL (150-450); Red Blood Count 4.79 x10^6/uL (4.1-5.4); Red Cell Distribution Width 13.7 % (11.5-14.0); White Blood Count 16.9 x10^3/uL (4.0-10.5)
[2022-03-08 13:13] LABS: ALBUMIN 4.1 g/dL (3.5-5.0); ALKALINE PHOSPHATASE 105 U/L (38-126); ANION GAP 14.2 MEQ/L (5-15); BLOOD UREA NITROGEN 12 mg/dL (7-17); CHLORIDE 98 mmol/L (98-107); Calcium 9.4 mg/dL (8.4-10.2); Carbon Dioxide 32 mmol/L (22-30); Creatinine 1 0.55 mg/dL (0.52-1.04); EST GLOMERULAR FILTRATION RATE > 60.0 ML/MIN; Glucose 160 mg/dL (74-106); NT PRO BNP 831 pg/mL (0-900); Potassium 4.2 mmol/L (3.5-5.1); SGOT/AST 21 U/L (14-36); SGPT/ALT 29 U/L (0-35); SODIUM 139 mmol/L (137-145); Total Protein 8.4 g/dL (6.3-8.2)
--- NOTE | 2022-03-08 13:18 | ERPHSYRPT ---
- History of Present Illness Time Seen by Provider: 03/08/22 12:06 Source: patient Exam Limitations: no limitations Patient Subjective Stated Complaint: C/O increasing SOB for the past 3 days; states does not wear oxygen at home Triage Nursing Assessment: Patient brought back to ED in a wheelchair. Patient is SOB with labored breathing. Hands are cool to touch and fingertips are slightly blue. 02 sats 68% on room air per pulse oximeter, 02 @ 5L per n/c initiated and pulse ox increased to 89%. A moist, non-productive cough noted. Lungs diminished throughout with a wheeze noted in left upper lobe. Physician History: Patient here with increasing shortness of breath. No falls or trauma. History of COPD. Not on home oxygen. Patient states that she has agoraphobia. Therefore she did not come to the hospital. On arrival, patient is very wheezy. Appears uncomfortable. Tachypnea, tachycardia. Timing/Duration: day(s) (3) Severity: moderate Modifying Factors: Improves With: other Associated Symptoms: shortness of breath Allergies/Adverse Reactions: amoxicillin [Amoxicillin] Allergy (Severe, Verified 03/08/22 12:09) Rash aripiprazole [From Abilify] Allergy (Severe, Verified 03/08/22 12:09) Swelling Confusion metronidazole [From Flagyl] Allergy (Severe, Verified 03/08/22 12:09) Rash Boil Rash Metronidazole HCl [From Flagyl] Allergy (Severe, Verified 03/08/22 12:09) Rash Boil Rash Penicillins Allergy (Severe, Verified 03/08/22 12:09) Rash Boil Rash quetiapine fumarate [From Seroquel] Allergy (Severe, Verified 03/08/22 12:09) Swelling Confusion codeine [Codeine] Allergy (Mild, Verified 03/08/22 12:09) Nausea Pt states that the room is spinning trazodone Adverse Reaction (Mild, Verified 03/08/22 12:09) Pt states that she was blind for a few 3-4 seconds Home Medications: Albuterol Sulfate Mdi [Proair Hfa MDI] 8.5 gm IN QID PRN 08/23/19 [History] Carvedilol 3.125 mg [Coreg 3.125 MG] 3.125 mg PO BID 08/23/19 [History] Duloxetine HCl 30 mg PO DAILY 08/23/19 [History] Duloxetine HCl 60 mg PO DAILY 08/23/19 [History] Fluticasone Propion/Salmeterol [Wixela 250-50 Inhub] 1 puffs PO BID 08/23/19 [History] Lisinopril/Hydrochlorothiazide [Lisinopril-Hctz 20-25 mg Tab] 20 - 25 mg PO DAILY 08/23/19 [History] Metformin HCl 500 mg PO BID 08/23/19 [History] predniSONE [Prednisone] 5 mg PO BID 08/23/19 [History] Hx Tetanus, Diphtheria Vaccination/Date Given: Yes Hx Influenza Vaccination/Date Given: No Hx Pneumococcal Vaccination/Date Given: No Immunizations Up to Date: Yes Travel Risk - International Travel Have you traveled outside of the country in past 3 weeks: No - Coronavirus Screening Are you exhibiting any of the following symptoms?: Yes Symptoms: Cough: New Onset, Shortness of Breath Close contact with a COVID-19 positive Pt in past 14-21 Days: No - Vaccine Status Have you recieved a Covid-19 vaccination: No - Review of Systems Constitutional: No Fever, No Chills Eyes: No Symptoms Ears, Nose, & Throat: No Symptoms Respiratory: Dyspnea on Exertion (GUERRIER), Wheezing, Other (SOB), No Cough, No Dyspnea Cardiac: No Chest Pain, No Edema, No Syncope Abdominal/Gastrointestinal: No Abdominal Pain, No Nausea, No Vomiting, No Diarrhea Genitourinary Symptoms: No Dysuria Musculoskeletal: No Back Pain, No Neck Pain Skin: No Rash Neurological: No Dizziness, No Focal Weakness, No Sensory Changes Psychological: No Symptoms Endocrine: No Symptoms All Other Systems: Reviewed and Negative - Past Medical History Pertinent Past Medical History: Yes Neurological History: No Pertinent History ENT History: No Pertinent History Cardiac History: Hypertension Respiratory History: Bronchitis, COPD, Other Endocrine Medical History: Diabetes Type II Musculoskeletal History: Rheumatoid Arthritis GI Medical History: No Pertinent History History: No Pertinent History Psycho-Social History: Anxiety, Bipolar, Depression Female Reproductive Disorders: Cervical Cancer Other Medical History: Ovarian mass, hernia - Past Surgical History Past Surgical History: Yes Neuro Surgical History: No Pertinent History Cardiac: No Pertinent History Respiratory: No Pertinent History Gastrointestinal: No Pertinent History Genitourinary: No Pertinent History Musculoskeletal: Orthopedic Surgery Female Surgical History: Tubal Ligation Other Surgical History: Ankle surgery. Knee drained and wash - Social History Smoking Status: Current every day smoker How long have you smoked: 40 Exposure to second hand smoke: No Drug Use: none Patient Lives Alone: No - Nursing Vital Signs Nursing Vital Signs: Initial Vital Signs Temperature 98.1 F 03/08/22 12:12 Pulse Rate 113 H 03/08/22 12:12 Respiratory Rate 30 H 03/08/22 12:12 Blood Pressure 144/115 03/08/22 12:12 O2 Sat by Pulse Oximetry 89 L 03/08/22 12:12 Pain Scale Pain Intensity 6 - Physical Exam General Appearance: no apparent distress, alert Eye Exam: PERRL/EOMI, eyes nml inspection Ears, Nose, Throat Exam: normal ENT inspection, TMs normal, pharynx normal, moist mucous membranes Neck Exam: normal inspection, non-tender, supple, full range of motion Respiratory Exam: respiratory distress, wheezing, other (Wheezing, tachypnea, decreased breath sounds throughout, placed on O2 immediately), No lungs clear Cardiovascular Exam: regular rate/rhythm, normal heart sounds, normal peripheral pulses Gastrointestinal/Abdomen Exam: soft, normal bowel sounds, No tenderness, No mass Back Exam: normal inspection, normal range of motion, No CVA tenderness, No vertebral tenderness Extremity Exam: normal inspection, normal range of motion, pelvis stable Neurologic Exam: alert, oriented x 3, cooperative, normal mood/affect, nml cerebellar function, nml station & gait, sensation nml, No motor deficits Skin Exam: normal color, warm, dry, No rash Lymphatic Exam: No adenopathy SpO2: 89 - Course Nursing assessment & vital signs reviewed: Yes EKG Interpreted by Me: Sinus Rhythm Ordered Tests: Active Orders 24 hr Category Date Time Status Admit as Inpatient ROUTINE Care 03/08/22 13:53 Active Phosphoric Acid Supervisor STAT Care 03/08/22 12:22 Active Code Status Order ROUTINE Care 03/08/22 13:53 Active EKG-ER Only STAT Care 03/08/22 12:21 Active IV Care Q6H Care 03/08/22 13:53 Active IV Insertion STAT Care 03/08/22 12:21 Active POCT Glucose Check Q6H Care 03/08/22 13:52 Active Rudi Devorahe, Apply ROUTINE Care 03/08/22 13:53 Active Weight,Daily 0600 Care 03/08/22 13:53 Active House Regular Diet Diet 03/09/22 Breakfast Active CHEST 1 VIEW (PORTABLE) Stat Exams 03/08/22 12:22 Completed CBC AM.LAB Lab 03/09/22 04:00 Ordered CBC W DIFF Stat Lab 03/08/22 12:38 Completed CMP AM.LAB Lab 03/09/22 04:00 Ordered CMP Stat Lab 03/08/22 12:38 Completed MAGNESIUM AM.LAB Lab 03/09/22 04:00 Ordered NT PRO BNP Stat Lab 03/08/22 12:38 Completed TROPONIN Q4H Lab 03/08/22 12:38 Completed TROPONIN Q4H Lab 03/08/22 16:30 Ordered TROPONIN Q4H Lab 03/08/22 20:30 Ordered Peak Expiratory Flow Rate BEFORE&AFTER NEB TX RT 03/08/22 13:54 Active Pulse Oximetry CONTINUOUS RT 03/08/22 13:54 Active Respiratory Therapy Assessment ONCE RT 03/08/22 12:56 Active Medication Summary Generic Name Dose Route Start Last Admin Trade Name Freq PRN Reason Stop Dose Admin Albuterol Sulfate 10 mg 03/08/22 12:25 03/08/22 12:25 Albuterol Solution 2.5 Mg/0.5 Ml Ud Solution IH 04/07/22 12:24 10 mg UD ISABEL Administration Discontinued Medications Generic Name Dose Route Start Last Admin Trade Name Freq PRN Reason Stop Dose Admin Albuterol/Ipratropium Confirm 03/08/22 12:14 Ipratropium/Albuterol Sulfate 3 Ml Ampul.Neb Administered 03/08/22 12:15 Dose 3 ml IH .STK-MED ONE Albuterol/Ipratropium 3 ml 03/08/22 12:15 03/08/22 12:15 Ipratropium/Albuterol Sulfate 3 Ml Ampul.Neb IH 03/08/22 12:16 3 ml STAT ONE Administration Methylprednisolone Sodium 0 mg 03/08/22 12:21 03/08/22 12:51 Succinate 125 mg/ Sterile IV 03/08/22 12:22 125 mg Water 2 ml STAT ONE Administration Enoxaparin Sodium 40 mg 03/08/22 13:52 Enoxaparin Sodium 40 Mg/0.4 Ml Syringe SQ 03/08/22 13:53 1XONLY ONE Sodium Chloride 1,000 mls @ 999 mls/hr 03/08/22 12:21 03/08/22 14:19 Sodium Chloride 0.9% 1000 Ml IV 03/08/22 13:21 Infused .Q1H1M STA Infusion Ceftriaxone Sodium/Dextrose 1 g in 50 mls @ 100 mls/hr 03/08/22 12:21 03/08/22 13:29 Rocephin 1 Gm-D5w 50 Ml Bag IV 03/08/22 12:50 Infused STAT STA Infusion Azithromycin 500 mg in 250 mls @ 250 mls/hr 03/08/22 12:21 03/08/22 13:33 Zithromax 500 Mg/ 250 Ml Nacl Premix IV 03/08/22 13:20 250 mls/hr STAT STA 250 mls/hr Administration Magnesium Sulfate/Water 2 gm in 50 mls @ 100 mls/hr 03/08/22 12:24 Magnesium Sulf 2 G/50 Ml Bag IV 03/08/22 12:53 ONCE ONE Sodium Chloride Confirm 03/08/22 12:46 Sodium Chloride 0.9% 1000 Ml Administered 03/08/22 12:47 Dose 1,000 mls @ ud .ROUTE .STK-MED ONE Ceftriaxone Sodium/Dextrose Confirm 03/08/22 12:46 Rocephin 1 Gm-D5w 50 Ml Bag Administered 03/08/22 12:47 Dose 1 g in 50 mls @ ud IV .STK-MED ONE Azithromycin Confirm 03/08/22 13:30 Zithromax 500 Mg/ 250 Ml Nacl Premix Administered 03/08/22 13:31 Dose 500 mg in 250 mls @ ud IV .STK-MED ONE Methylprednisolone Sodium Succinate Confirm 03/08/22 12:46 Methylprednis Sod Succ 125 Mg/2 Ml Vial Administered 03/08/22 12:47 Dose 125 mg .ROUTE .STK-MED ONE Sterile Water Confirm 03/08/22 12:46 Water For Injection,Sterile 10 Ml Vial Administered 03/08/22 12:47 Dose 10 ml IJ .STK-MED ONE Lab/Rad Data: Laboratory Result Diagrams 03/08/22 12:38 03/08/22 12:38 Laboratory Results 03/08/22 03/08/22 03/08/22 Range/Units 12:41 12:38 12:38 WBC (4.0-10.5) x10^3/uL RBC (4.1-5.4) x10^6/uL Hgb (12.0-16.0) g/dL Hct (35-47) % MCV (78-100) fL MCH (26-32) pg MCHC (32-36) g/dL RDW (11.5-14.0) % Plt Count (150-450) x10^3/uL MPV (7.5-11.0) fL Gran % (36.0-66.0) % Immature Gran % (Auto) (0.00-0.4) % Nucleat RBC Rel Count (0.00-0.1) % Eos # (Auto) (0-0.5) x10^3/uL Immature Gran # (Auto) (0.00-0.03) x10^3u/L Absolute Lymphs (auto) (1.0-4.6) x10^3/uL Absolute Monos (auto) (0.0-1.3) x10^3/uL Absolute Nucleated RBC (0.00-0.01) x10^3u/L Lymphocytes % (24.0-44.0) % Monocytes % (0.0-12.0) % Eosinophils % (0.00-5.0) % Basophils % (0.0-0.4) % Absolute Granulocytes (1.4-6.9) x10^3/uL Basophils # (0-0.4) x10^3/uL Sodium 139 (137-145) mmol/L Potassium 4.2 (3.5-5.1) mmol/L Chloride 98 (98-107) mmol/L Carbon Dioxide 32 H (22-30) mmol/L Anion Gap 14.2 (5-15) MEQ/L BUN 12 (7-17) mg/dL Creatinine 0.55 (0.52-1.04) mg/dL Estimated GFR > 60.0 ML/MIN Glucose 160 H (74-106) mg/dL Calcium 9.4 (8.4-10.2) mg/dL Total Bilirubin 0.90 (0.2-1.3) mg/dL AST 21 (14-36) U/L ALT 29 (0-35) U/L Alkaline Phosphatase 105 (38-126) U/L Troponin I < 0.012 (0.000-0.034) ng/mL NT-Pro-B Natriuret Pep 831 (0-900) pg/mL Serum Total Protein 8.4 H (6.3-8.2) g/dL Albumin 4.1 (3.5-5.0) g/dL Influenza Type A Ag NEGATIVE (NEGATIVE) Influenza Type B Ag NEGATIVE (NEGATIVE) RSV (PCR) NEGATIVE (Negative) SARS-CoV-2 (PCR) NEGATIVE (NEGATIVE) 03/08/22 Range/Units 12:38 WBC 16.9 H (4.0-10.5) x10^3/uL RBC 4.79 (4.1-5.4) x10^6/uL Hgb 14.8 (12.0-16.0) g/dL Hct 47.9 H (35-47) % MCV 100.0 (78-100) fL MCH 30.9 (26-32) pg MCHC 30.9 L (32-36) g/dL RDW 13.7 (11.5-14.0) % Plt Count 282 (150-450) x10^3/uL MPV 9.4 (7.5-11.0) fL Gran % 84.5 H (36.0-66.0) % Immature Gran % (Auto) 0.3 (0.00-0.4) % Nucleat RBC Rel Count 0.0 (0.00-0.1) % Eos # (Auto) 0 (0-0.5) x10^3/uL Immature Gran # (Auto) 0.05 H (0.00-0.03) x10^3u/L Absolute Lymphs (auto) 0.94 L (1.0-4.6) x10^3/uL Absolute Monos (auto) 1.53 H (0.0-1.3) x10^3/uL Absolute Nucleated RBC 0.00 (0.00-0.01) x10^3u/L Lymphocytes % 5.6 L (24.0-44.0) % Monocytes % 9.1 (0.0-12.0) % Eosinophils % 0.0 (0.00-5.0) % Basophils % 0.5 (0.0-0.4) % Absolute Granulocytes 14.25 H (1.4-6.9) x10^3/uL Basophils # 0.08 (0-0.4) x10^3/uL Sodium (137-145) mmol/L Potassium (3.5-5.1) mmol/L Chloride (98-107) mmol/L Carbon Dioxide (22-30) mmol/L Anion Gap (5-15) MEQ/L BUN (7-17) mg/dL Creatinine (0.52-1.04) mg/dL Estimated GFR ML/MIN Glucose (74-106) mg/dL Calcium (8.4-10.2) mg/dL Total Bilirubin (0.2-1.3) mg/dL AST (14-36) U/L ALT (0-35) U/L Alkaline Phosphatase (38-126) U/L Troponin I (0.000-0.034) ng/mL NT-Pro-B Natriuret Pep (0-900) pg/mL Serum Total Protein (6.3-8.2) g/dL Albumin (3.5-5.0) g/dL Influenza Type A Ag (NEGATIVE) Influenza Type B Ag (NEGATIVE) RSV (PCR) (Negative) SARS-CoV-2 (PCR) (NEGATIVE) - Progress Progress: improved Progress Note: 03/08/22 13:16 Patient appears very uncomfortable. Plan for breathing treatment, steroids, empiric antibiotic treatment. We will send basic labs, troponin, BNP. 03/08/22 14:44 Patient is still very wheezy. Appears uncomfortable. Chest x-ray shows possible pneumonia. Therefore we will continue Rocephin and azithromycin. I did speak over the phone with on-call physician, Dr. Cavazos. She did accept the patient for admission to the hospital. Patient does appear more stable. She is still on O2. Patient's COVID swabs, flu swab is negative. Plan for admission at this point time. She has better stabilized. Dr. Cavazos and I did talk over the phone about the potential for a pulmonary embolism. I believe it to be less likely as patient did improve with pneumonia, COPD treatment. However not impossible. Therefore we will do 1 shot of Lovenox here this evening. Plan for reevaluation with primary team. Will see patient in: hospital (full admit) Counseled pt/family regarding: lab results, diagnosis, rad results, smoking cessation - Departure Departure Disposition: In-patient Admission Clinical Impression: COPD exacerbation, Community acquired pneumonia Condition: Stable Critical Care Time: No
[2022-03-08 13:24] LABS: INFLUENZA A NEGATIVE (NEGATIVE); INFLUENZA B NEGATIVE (NEGATIVE); RESPIRATORY SYNCTIAL VIRUS NEGATIVE (Negative); SARS-CoV-2 Xpert Express NEGATIVE (NEGATIVE)
[2022-03-08] MEDS ORDERED: Zithromax 500 MG/ 250 ML NaCl Premix 500 MG/250 ML IVPB IV ONE (13:30)
--- NOTE | 2022-03-08 13:32 | XRAY ---
Indication: Pneumonia. Comparison: March 20, 2020 Portable chest again hyperinflated with new subtle lateral right base infiltrate versus atelectasis. Remaining heart and lungs unremarkable again with incidental tiny calcified granulomas. Bony thorax intact.
[2022-03-08] MEDS ORDERED: ENOXAPARIN SODIUM SQ ONE ×2 (13:52→16:13)
[2022-03-08 15:22] LABS: Slide Review 1 YES
[2022-03-08] MEDS ORDERED: NON-FORMULARY ITEM (Albuterol Sulfate Mdi*** 8.5 GM Hfa.Aer.Ad) IN PRN (16:46)
[2022-03-08] MEDS ORDERED: DUONEB 0.5-3 MG/3 ml Neb IH PRN (16:46)
[2022-03-08] MEDS ORDERED: VENTOLIN COMMON CANISTER IH PRN (16:53)
[2022-03-08] MEDS: ENOXAPARIN SODIUM SQ SCH (17:16)
[2022-03-08] MEDS: DUONEB 0.5-3 MG/3 ml Neb IH SCH ×2 (18:59→22:12)
[2022-03-08] MEDS: Advair Hfa 115/21 Common canister IH SCH (19:00)
[2022-03-08] MEDS ORDERED: FLUTICASONE-SALMETEROL 250-50 IH SCH (22:00)
[2022-03-08] MEDS: HUMALOG SQ PRN (22:04)
[2022-03-08] MEDS: solu-MEDROL 80 MG, Sterile H2O 10 ml 2 ML IV SCH ×2 (22:05)
[2022-03-08] MEDS: Coreg 3.125 MG PO SCH (22:05)
[2022-03-09] MEDS: ULTRAM 50 MG PO PRN ×4 (00:06→19:20)
[2022-03-09] MEDS: DUONEB 0.5-3 MG/3 ml Neb IH SCH ×6 (03:12→22:16)
[2022-03-09] MEDS: solu-MEDROL 80 MG, Sterile H2O 10 ml 2 ML IV SCH ×2 (05:29)
[2022-03-09 05:35] LABS: Hematocrit 47.7 % (35-47); Hemoglobin 14.4 g/dL (12.0-16.0); Mean Corpuscular Hemoglobin 31.1 pg (26-32); Mean Corpuscular Hgb Concent. 30.2 g/dL (32-36); Mean Platelet Volume 11.6 fL (7.5-11.0); Platelet Count 196 x10^3/uL (150-450); Red Blood Count 4.63 x10^6/uL (4.1-5.4); White Blood Count 13.9 x10^3/uL (4.0-10.5)
[2022-03-09 06:16] LABS: ALBUMIN 4.1 g/dL (3.5-5.0); ALKALINE PHOSPHATASE 107 U/L (38-126); ANION GAP 12.7 MEQ/L (5-15); BLOOD UREA NITROGEN 20 mg/dL (7-17); CHLORIDE 97 mmol/L (98-107); Calcium 8.9 mg/dL (8.4-10.2); Carbon Dioxide 31 mmol/L (22-30); EST GLOMERULAR FILTRATION RATE > 60.0 ML/MIN; Glucose 217 mg/dL (74-106); MAGNESIUM 2.6 mg/dL (1.6-2.3); Potassium 4.4 mmol/L (3.5-5.1); SGOT/AST 42 U/L (14-36); SGPT/ALT 38 U/L (0-35); SODIUM 137 mmol/L (137-145); Total Protein 8.5 g/dL (6.3-8.2)
[2022-03-09] MEDS: Advair Hfa 115/21 Common canister IH SCH ×2 (07:39→18:34)
[2022-03-09] MEDS: HUMALOG SQ PRN ×4 (08:40→22:20)
[2022-03-09] MEDS: ENOXAPARIN SODIUM SQ SCH (09:02)
[2022-03-09] MEDS: Cymbalta 30 MG Capsule PO SCH (09:02)
[2022-03-09] MEDS: ROCEPHIN 1 Gm-D5w 50 ml Bag** 1 G/50 ML IVPB IV SCH (09:02)
[2022-03-09] MEDS: Coreg 3.125 MG PO SCH ×2 (09:03→22:20)
[2022-03-09] MEDS: FOLATE 1 MG PO SCH (09:03)
[2022-03-09] MEDS: hydroDIURIL 25 MG PO SCH (09:03)
[2022-03-09] MEDS: Zestril 20 MG PO SCH (09:03)
[2022-03-09] MEDS: Zithromax 500 MG/ 250 ML NaCl Premix 500 MG/250 ML IVPB IV SCH (09:49)
[2022-03-09] MEDS ORDERED: ULTRAM 50 MG PO SCH (10:00)
[2022-03-09] MEDS ORDERED: LISINOPRIL PO SCH (10:00)
[2022-03-09] MEDS ORDERED: NON-FORMULARY ITEM (Duloxetine Hcl [Duloxetine Hcl] 60 MG Capsule.Dr) PO SCH (10:00)
[2022-03-09] MEDS ORDERED: HYDROCHLOROTHIAZIDE PO SCH (10:00)
[2022-03-09] MEDS ORDERED: [UNRECOGNIZED DRUG - OTHER] PO SCH (10:00)
--- NOTE | 2022-03-09 10:51 | PCM.HP ---
History of Present Illness - Chief Complaint Chief Complaint: COMMUNITY ACQUIRED PNEUMONIA History of Present Illness: is a 56 year old female pt of Dr. Dawkins with HTN, COPD, DM II, RA, bipolar, and agoraphobia who came to ER with asthma exacerbation and PNA. She had been sick about 3 weeks, started with sinus sx and fever. She thought she had the flu; tested negative at home for Covid. Her cough was at first nonproductive, then had thick yellow sputum, progressing to yellow-brown to darkbrown/green sputum. Came to ER by private car and O2 sat was 68% on RA with blue fingertips. On 5L NC was 89%. WBC 16.9. She does smoke TOB and is interested in quitting. Does not wear o2 chronically at home. - Review of Systems Constitutional: Fever Respiratory: Cough, Short Of Breath Abdominal/Gastrointestinal: Vomiting (x1), Diarrhea (not liquid stools) Musculoskeletal: Arthralgias Skin: Other (alopecia, thinks from previous RA meds) Neurological: Dizziness Psychological: Anxiety, Depression All Other Systems: Reviewed and Negative Medications & Allergies Home Medications: Home Medication List Albuterol Sulfate Mdi [Proair Hfa MDI] 2 puff IN QIDPRN PRN 08/23/19 [History Confirmed 03/08/22] Carvedilol 3.125 mg [Coreg 3.125 MG] 3.125 mg PO BID 08/23/19 [History Confirmed 03/08/22] Duloxetine HCl 30 mg PO DAILY 08/23/19 [History Confirmed 03/08/22] Duloxetine HCl 60 mg PO DAILY 08/23/19 [History Confirmed 03/08/22] Fluticasone Propion/Salmeterol [Wixela 250-50 Inhub] 1 puff IN BID 08/23/19 [History Confirmed 03/08/22] Lisinopril/Hydrochlorothiazide [Lisinopril-Hctz 20-25 mg Tab] 1 tab PO DAILY [History Confirmed 03/08/22] Metformin HCl 1,000 mg PO BID 08/23/19 [History Confirmed 03/08/22] predniSONE [Prednisone] 5 mg PO BID 08/23/19 [History Confirmed 03/08/22] Abatacept/Maltose 250 MG [Orencia 250 MG Vial] 1,000 mg IV UD 03/08/22 [History Confirmed 03/08/22] Albuterol/Ipratropium 3ml Neb* [DUONEB 0.5-3 MG/3 ml Neb] 1 neb IH Q6H PRN PRN 03/08/22 [History Confirmed 03/08/22] Empagliflozin [Jardiance] 10 mg PO DAILY 03/08/22 [History Confirmed 03/08/22] Folic Acid 1 mg PO DAILY 03/08/22 [History Confirmed 03/08/22] Tramadol HCl 50 mg [Ultram 50 mg] 50 mg PO DAILY 03/08/22 [History Confirmed 03/08/22] Allergies/Adverse Reactions: Allergies Allergy/AdvReac Type Severity Reaction Status Date / Time amoxicillin [Amoxicillin] Allergy Severe Rash Verified 03/08/22 12:09 aripiprazole [From Abilify] Allergy Severe Swelling Verified 03/08/22 12:09 metronidazole [From Flagyl] Allergy Severe Rash Verified 03/08/22 12:09 Metronidazole HCl Allergy Severe Rash Verified 03/08/22 12:09 [From Flagyl] Penicillins Allergy Severe Rash Verified 03/08/22 12:09 quetiapine fumarate Allergy Severe Swelling Verified 03/08/22 12:09 [From Seroquel] codeine [Codeine] Allergy Mild Nausea Verified 03/08/22 12:09 trazodone AdvReac Mild Verified 03/08/22 12:09 - Past Medical History Past Medical History: Yes Neurological History: No Pertinent History ENT History: Other Cardiac History: Hypertension Respiratory History: COPD, Emphysema Endocrine Medical History: Diabetes Type II Musculoskelatal History: Rheumatoid Arthritis GI Medical History: Hernia History: No Pertinent History Pyscho-Social History: Anxiety Reproductive Disorders: Other Comment: DRY EYES, MASS IN UTERUS - Female History Are you now?: No - Past Surgical History Past Surgical History: Yes Neuro Surgical History: No Pertinent History Cardiac History: No Pertinent History Respiratory Surgery: No Pertinent History GI Surgical History: Hernia Repair Genitourinary Surgical Hx: No Pertinent History Musculskeletal Surgical Hx: Orthopedic Surgery Female Surgical History: Hysterectomy, Tubal Ligation Other Surgical History: Ankle surgery. Knee drained and wash - Social History Smoking Status: Current every day smoker How long have you smoked: 40 YEARS Exposure to second hand smoke: No Alcohol: None Drug Use: none - Physical Exam Vital Signs: Vital Signs - 24 hr Temp Pulse Resp BP BP Pulse Ox 03/09/22 07:53 97.1 F 70 20 164/74 93 L 03/09/22 07:42 74 18 97 03/09/22 04:00 97 F 70 21 139/75 94 L 03/09/22 03:14 62 22 94 L 03/09/22 00:00 96.9 F 99 H 21 134/89 93 L 03/08/22 22:12 74 18 96 03/08/22 20:00 96.8 F 102 H 16 117/64 93 L 03/08/22 18:59 104 H 20 94 L 03/08/22 16:00 97.1 F 94 H 130/85 92 L 03/08/22 15:10 92 L 03/08/22 15:00 87 L 03/08/22 14:55 94 H 24 88 L 03/08/22 14:54 97.1 F 94 H 24 130/85 85 L 03/08/22 14:47 89 L 03/08/22 13:10 93 H 26 H 170/104 96 03/08/22 12:25 112 H 24 94 L 03/08/22 12:15 111 H 24 88 L 03/08/22 12:12 98.1 F 113 H 30 H 144/115 89 L General Appearance: no apparent distress, obese Neurologic Exam: oriented x 3, cooperative, normal mood/affect, other (does have pain with moving self onto bed to lie down for exam) Eye Exam: eyes nml inspection Ears, Nose, Throat Exam: moist mucous membranes Neck Exam: normal inspection, non-tender, No lymphadenopathy, No subcutaneous emphysema, No thyromegaly Respiratory Exam: diminished breath sounds (poor air exchange), wheezing (throughout, mild), No crackles/rales, No rhonchi Cardiovascular Exam: regular rate/rhythm, normal heart sounds, No murmur Gastrointestinal/Abdomen Exam: soft, normal bowel sounds, tenderness (RLQ) Back Exam: normal inspection, No rash Extremity Exam: other (chronic changes in skin LE bilat), No pedal edema, No swelling Skin Exam: warm, dry Results - Labs Lab/Micro Results: Lab Results-Last 24 Hours 03/08/22 03/08/22 03/08/22 Range/Units 12:38 12:38 12:38 WBC 16.9 H (4.0-10.5) x10^3/uL RBC 4.79 (4.1-5.4) x10^6/uL Hgb 14.8 (12.0-16.0) g/dL Hct 47.9 H (35-47) % MCV 100.0 (78-100) fL MCH 30.9 (26-32) pg MCHC 30.9 L (32-36) g/dL RDW 13.7 (11.5-14.0) % Plt Count 282 (150-450) x10^3/uL MPV 9.4 (7.5-11.0) fL Gran % 84.5 H (36.0-66.0) % Immature Gran % (Auto) 0.3 (0.00-0.4) % Nucleat RBC Rel Count 0.0 (0.00-0.1) % Eos # (Auto) 0 (0-0.5) x10^3/uL Immature Gran # (Auto) 0.05 H (0.00-0.03) x10^3u/L Absolute Lymphs (auto) 0.94 L (1.0-4.6) x10^3/uL Absolute Monos (auto) 1.53 H (0.0-1.3) x10^3/uL Absolute Nucleated RBC 0.00 (0.00-0.01) x10^3u/L Lymphocytes % 5.6 L (24.0-44.0) % Monocytes % 9.1 (0.0-12.0) % Eosinophils % 0.0 (0.00-5.0) % Basophils % 0.5 (0.0-0.4) % Absolute Granulocytes 14.25 H (1.4-6.9) x10^3/uL Basophils # 0.08 (0-0.4) x10^3/uL Sodium 139 (137-145) mmol/L Potassium 4.2 (3.5-5.1) mmol/L Chloride 98 (98-107) mmol/L Carbon Dioxide 32 H (22-30) mmol/L Anion Gap 14.2 (5-15) MEQ/L BUN 12 (7-17) mg/dL Creatinine 0.55 (0.52-1.04) mg/dL Estimated GFR > 60.0 ML/MIN Glucose 160 H (74-106) mg/dL POC Glucometer (74 to 106) mg/dL Hemoglobin A1c (4.5-6.0) % Calcium 9.4 (8.4-10.2) mg/dL Magnesium (1.6-2.3) mg/dL Total Bilirubin 0.90 (0.2-1.3) mg/dL AST 21 (14-36) U/L ALT 29 (0-35) U/L Alkaline Phosphatase 105 (38-126) U/L Troponin I < 0.012 (0.000-0.034) ng/mL NT-Pro-B Natriuret Pep 831 (0-900) pg/mL Serum Total Protein 8.4 H (6.3-8.2) g/dL Albumin 4.1 (3.5-5.0) g/dL Influenza Type A Ag (NEGATIVE) Influenza Type B Ag (NEGATIVE) RSV (PCR) (Negative) SARS-CoV-2 (PCR) (NEGATIVE) Slides for Path Review YES 03/08/22 03/08/22 03/08/22 Range/Units 12:41 16:27 16:40 WBC (4.0-10.5) x10^3/uL RBC (4.1-5.4) x10^6/uL Hgb (12.0-16.0) g/dL Hct (35-47) % MCV (78-100) fL MCH (26-32) pg MCHC (32-36) g/dL RDW (11.5-14.0) % Plt Count (150-450) x10^3/uL MPV (7.5-11.0) fL Gran % (36.0-66.0) % Immature Gran % (Auto) (0.00-0.4) % Nucleat RBC Rel Count (0.00-0.1) % Eos # (Auto) (0-0.5) x10^3/uL Immature Gran # (Auto) (0.00-0.03) x10^3u/L Absolute Lymphs (auto) (1.0-4.6) x10^3/uL Absolute Monos (auto) (0.0-1.3) x10^3/uL Absolute Nucleated RBC (0.00-0.01) x10^3u/L Lymphocytes % (24.0-44.0) % Monocytes % (0.0-12.0) % Eosinophils % (0.00-5.0) % Basophils % (0.0-0.4) % Absolute Granulocytes (1.4-6.9) x10^3/uL Basophils # (0-0.4) x10^3/uL Sodium (137-145) mmol/L Potassium (3.5-5.1) mmol/L Chloride (98-107) mmol/L Carbon Dioxide (22-30) mmol/L Anion Gap (5-15) MEQ/L BUN (7-17) mg/dL Creatinine (0.52-1.04) mg/dL Estimated GFR ML/MIN Glucose (74-106) mg/dL POC Glucometer 189 H (74 to 106) mg/dL Hemoglobin A1c 6.61 H (4.5-6.0) % Calcium (8.4-10.2) mg/dL Magnesium (1.6-2.3) mg/dL Total Bilirubin (0.2-1.3) mg/dL AST (14-36) U/L ALT (0-35) U/L Alkaline Phosphatase (38-126) U/L Troponin I (0.000-0.034) ng/mL NT-Pro-B Natriuret Pep (0-900) pg/mL Serum Total Protein (6.3-8.2) g/dL Albumin (3.5-5.0) g/dL Influenza Type A Ag NEGATIVE (NEGATIVE) Influenza Type B Ag NEGATIVE (NEGATIVE) RSV (PCR) NEGATIVE (Negative) SARS-CoV-2 (PCR) NEGATIVE (NEGATIVE) Slides for Path Review 03/08/22 03/08/22 03/08/22 Range/Units 16:55 20:18 21:44 WBC (4.0-10.5) x10^3/uL RBC (4.1-5.4) x10^6/uL Hgb (12.0-16.0) g/dL Hct (35-47) % MCV (78-100) fL MCH (26-32) pg MCHC (32-36) g/dL RDW (11.5-14.0) % Plt Count (150-450) x10^3/uL MPV (7.5-11.0) fL Gran % (36.0-66.0) % Immature Gran % (Auto) (0.00-0.4) % Nucleat RBC Rel Count (0.00-0.1) % Eos # (Auto) (0-0.5) x10^3/uL Immature Gran # (Auto) (0.00-0.03) x10^3u/L Absolute Lymphs (auto) (1.0-4.6) x10^3/uL Absolute Monos (auto) (0.0-1.3) x10^3/uL Absolute Nucleated RBC (0.00-0.01) x10^3u/L Lymphocytes % (24.0-44.0) % Monocytes % (0.0-12.0) % Eosinophils % (0.00-5.0) % Basophils % (0.0-0.4) % Absolute Granulocytes (1.4-6.9) x10^3/uL Basophils # (0-0.4) x10^3/uL Sodium (137-145) mmol/L Potassium (3.5-5.1) mmol/L Chloride (98-107) mmol/L Carbon Dioxide (22-30) mmol/L Anion Gap (5-15) MEQ/L BUN (7-17) mg/dL Creatinine (0.52-1.04) mg/dL Estimated GFR ML/MIN Glucose (74-106) mg/dL POC Glucometer 273 H (74 to 106) mg/dL Hemoglobin A1c (4.5-6.0) % Calcium (8.4-10.2) mg/dL Magnesium (1.6-2.3) mg/dL Total Bilirubin (0.2-1.3) mg/dL AST (14-36) U/L ALT (0-35) U/L Alkaline Phosphatase (38-126) U/L Troponin I < 0.012 < 0.012 (0.000-0.034) ng/mL NT-Pro-B Natriuret Pep (0-900) pg/mL Serum Total Protein (6.3-8.2) g/dL Albumin (3.5-5.0) g/dL Influenza Type A Ag (NEGATIVE) Influenza Type B Ag (NEGATIVE) RSV (PCR) (Negative) SARS-CoV-2 (PCR) (NEGATIVE) Slides for Path Review 03/09/22 03/09/22 03/09/22 Range/Units 04:35 04:35 07:15 WBC 13.9 H (4.0-10.5) x10^3/uL RBC 4.63 (4.1-5.4) x10^6/uL Hgb 14.4 (12.0-16.0) g/dL Hct 47.7 H (35-47) % MCV 103.0 H (78-100) fL MCH 31.1 (26-32) pg MCHC 30.2 L (32-36) g/dL RDW 14.0 (11.5-14.0) % Plt Count 196 (150-450) x10^3/uL MPV 11.6 H (7.5-11.0) fL Gran % (36.0-66.0) % Immature Gran % (Auto) (0.00-0.4) % Nucleat RBC Rel Count (0.00-0.1) % Eos # (Auto) (0-0.5) x10^3/uL Immature Gran # (Auto) (0.00-0.03) x10^3u/L Absolute Lymphs (auto) (1.0-4.6) x10^3/uL Absolute Monos (auto) (0.0-1.3) x10^3/uL Absolute Nucleated RBC (0.00-0.01) x10^3u/L Lymphocytes % (24.0-44.0) % Monocytes % (0.0-12.0) % Eosinophils % (0.00-5.0) % Basophils % (0.0-0.4) % Absolute Granulocytes (1.4-6.9) x10^3/uL Basophils # (0-0.4) x10^3/uL Sodium 137 (137-145) mmol/L Potassium 4.4 (3.5-5.1) mmol/L Chloride 97 L (98-107) mmol/L Carbon Dioxide 31 H (22-30) mmol/L Anion Gap 12.7 (5-15) MEQ/L BUN 20 H (7-17) mg/dL Creatinine 0.50 L (0.52-1.04) mg/dL Estimated GFR > 60.0 ML/MIN Glucose 217 H (74-106) mg/dL POC Glucometer 232 H (74 to 106) mg/dL Hemoglobin A1c (4.5-6.0) % Calcium 8.9 (8.4-10.2) mg/dL Magnesium 2.6 H (1.6-2.3) mg/dL Total Bilirubin 0.60 (0.2-1.3) mg/dL AST 42 H (14-36) U/L ALT 38 H (0-35) U/L Alkaline Phosphatase 107 (38-126) U/L Troponin I (0.000-0.034) ng/mL NT-Pro-B Natriuret Pep (0-900) pg/mL Serum Total Protein 8.5 H (6.3-8.2) g/dL Albumin 4.1 (3.5-5.0) g/dL Influenza Type A Ag (NEGATIVE) Influenza Type B Ag (NEGATIVE) RSV (PCR) (Negative) SARS-CoV-2 (PCR) (NEGATIVE) Slides for Path Review Accuchecks Date 03/08/22 Date 03/08/22 Time 22:00 - Radiology Impressions Radiology Exams & Impressions: Radiology Procedures Category Date Time Status CHEST 1 VIEW (PORTABLE) Stat Exams 03/08/22 12:22 Completed - Other Procedures and Tests Respiratory Therapy 03/08/22 12:56 Respiratory Therapy Assessment DAILY 03/08/22 15:39 Oxygen Oxymizer LPM 10 lpm 03/08/22 18:31 BiPap/CPAP ROUTINE Assessment/Plan (1) Asthma exacerbation Current Visit: Yes Status: Acute Qualifiers: Asthma severity: severe Asthma persistence: persistent Qualified Code(s): J45.51 - Severe persistent asthma with (acute) exacerbation Assessment & Plan: improved since admission, but air exchange is still poor. Code(s): J45.901 - UNSPECIFIED ASTHMA WITH (ACUTE) EXACERBATION (2) Community acquired pneumonia Current Visit: Yes Status: Acute Qualifiers: Laterality: right Lung location: lower lobe of lung Qualified Code(s): J18.9 - Pneumonia, unspecified organism Assessment & Plan: on rocephin/zithromax day #2 Code(s): J18.9 - PNEUMONIA, UNSPECIFIED ORGANISM (3) Hypoxia Current Visit: No Status: Acute Assessment & Plan: will check d-dimer, if elevated will do CT chest Code(s): R09.02 - HYPOXEMIA (4) Anxiety Current Visit: No Status: Chronic Code(s): F41.9 - ANXIETY DISORDER, UNSPECIFIED (5) Leukocytosis Current Visit: No Status: Acute Code(s): D72.829 - ELEVATED WHITE BLOOD CELL COUNT, UNSPECIFIED (6) COPD (chronic obstructive pulmonary disease) Current Visit: No Status: Chronic Qualifiers: (7) Diabetes Current Visit: No Status: Chronic Qualifiers: Code(s): E11.9 - TYPE 2 DIABETES MELLITUS WITHOUT COMPLICATIONS (8) HTN (hypertension) Current Visit: No Status: Chronic Code(s): I10 - ESSENTIAL (PRIMARY) HYPERTENSION (9) Rheumatoid arthritis Current Visit: No Status: Chronic Qualifiers: Code(s): M06.9 - RHEUMATOID ARTHRITIS, UNSPECIFIED (10) Tobacco abuse Current Visit: Yes Status: Acute Assessment & Plan: says she's ready to quit. refusing patches. Code(s): Z72.0 - TOBACCO USE (11) Tobacco abuse counseling Current Visit: Yes Status: Acute Code(s): Z71.6 - TOBACCO ABUSE COUNSELING
--- NOTE | 2022-03-09 12:58 | XRAY ---
Indication: Positive d-dimer. Multiple contiguous axial images obtained through the chest using 100 cc Isovue 370 contrast and PE protocol. Comparison: January 21, 2022 Good opacification of the pulmonary arteries to include the lobar and segmental branches. No pulmonary embolus. Main pulmonary arteries again prominent up to 3.5 cm as seen with pulmonary hypertension. Heart not enlarged. Aorta is normal in course and caliber. Again a few small mediastinal and right hilar calcified nodes. No pathologic mediastinal/hilar lymphadenopathy. Lungs now demonstrates minimal diffuse peripheral bilateral rzjo-kx-rvm-like opacities favoring pneumonitis. No consolidation or effusion. There remains mild pulmonary emphysema. Bony thorax intact. Limited upper abdomen again demonstrates fatty liver. Impression: 1. Continued negative pulmonary embolus. 2. New minimal diffuse bilateral peripheral kbsn-bk-zui-like opacities favoring pneumonitis. 3. Again pulmonary emphysema, pulmonary hypertension, fatty liver, and old granulomatous disease.
--- NOTE | 2022-03-09 12:58 | XRAY ---
Indication: Positive d-dimer. Multiple contiguous axial images obtained through the chest using 100 cc Isovue 370 contrast and PE protocol. Comparison: January 21, 2022 Good opacification of the pulmonary arteries to include the lobar and segmental branches. No pulmonary embolus. Main pulmonary arteries again prominent up to 3.5 cm as seen with pulmonary hypertension. Heart not enlarged. Aorta is normal in course and caliber. Again a few small mediastinal and right hilar calcified nodes. No pathologic mediastinal/hilar lymphadenopathy. Lungs now demonstrates minimal diffuse peripheral bilateral sabr-ro-sab-like opacities favoring pneumonitis. No consolidation or effusion. There remains mild pulmonary emphysema. Bony thorax intact. Limited upper abdomen again demonstrates fatty liver. Impression: 1. Continued negative pulmonary embolus. 2. New minimal diffuse bilateral peripheral tkwi-va-vpr-like opacities favoring pneumonitis. 3. Again pulmonary emphysema, pulmonary hypertension, fatty liver, and old granulomatous disease.
[2022-03-09] MEDS: solu-MEDROL 125 MG, Sterile H2O 10 ml 2 ML IV SCH ×4 (14:47→22:19)
[2022-03-10] MEDS ORDERED: clonazePAM PO ONE ×2 (00:20→00:23)
[2022-03-10] MEDS: DUONEB 0.5-3 MG/3 ml Neb IH SCH ×5 (02:07→18:31)
[2022-03-10] MEDS: solu-MEDROL 125 MG, Sterile H2O 10 ml 2 ML IV SCH ×2 (06:11)
[2022-03-10] MEDS: Advair Hfa 115/21 Common canister IH SCH ×2 (07:24→18:42)
[2022-03-10 07:28] LABS: Absolute Neutrophil Ct (ANC) 12.78 x10^3/uL (1.4-6.9); Basophil (Absolute #) 0.03 x10^3/uL (0-0.4); Eosinophil % 0.1 % (0.00-5.0); Eosinophil (Absolute #) 0.01 x10^3/uL (0-0.5); Hematocrit 45.8 % (35-47); Hemoglobin 13.9 g/dL (12.0-16.0); Lymphocyte (Absolute #) 0.86 x10^3/uL (1.0-4.6); Mean Corpuscular Hgb Concent. 30.3 g/dL (32-36); Mean Platelet Volume 9.6 fL (7.5-11.0); Monocyte (Absolute #) 0.52 x10^3/uL (0.0-1.3); Monocytes % 3.6 % (0.0-12.0); Neutrophil % 89.7 % (36.0-66.0); Platelet Count 294 x10^3/uL (150-450); Red Blood Count 4.49 x10^6/uL (4.1-5.4); Red Cell Distribution Width 13.6 % (11.5-14.0); White Blood Count 14.3 x10^3/uL (4.0-10.5)
[2022-03-10 07:42] LABS: ANION GAP 10.3 MEQ/L (5-15); BLOOD UREA NITROGEN 23 mg/dL (7-17); CHLORIDE 97 mmol/L (98-107); Carbon Dioxide 35 mmol/L (22-30); Creatinine 1 0.49 mg/dL (0.52-1.04); EST GLOMERULAR FILTRATION RATE > 60.0 ML/MIN; Glucose 257 mg/dL (74-106); Potassium 4.7 mmol/L (3.5-5.1); SODIUM 137 mmol/L (137-145)
[2022-03-10] MEDS: Zithromax 500 MG/ 250 ML NaCl Premix 500 MG/250 ML IVPB IV SCH (09:00)
[2022-03-10] MEDS: ROCEPHIN 1 Gm-D5w 50 ml Bag** 1 G/50 ML IVPB IV SCH (09:00)
[2022-03-10] MEDS: clonazePAM PO SCH ×4 (09:08→22:51)
[2022-03-10] MEDS: Cymbalta 30 MG Capsule PO SCH (09:08)
[2022-03-10] MEDS: FOLATE 1 MG PO SCH (09:09)
[2022-03-10] MEDS: hydroDIURIL 25 MG PO SCH (09:09)
[2022-03-10] MEDS: Coreg 3.125 MG PO SCH ×2 (09:09→22:47)
[2022-03-10] MEDS: Zestril 20 MG PO SCH (09:09)
[2022-03-10] MEDS: ULTRAM 50 MG PO PRN (09:09)
[2022-03-10] MEDS: ENOXAPARIN SODIUM SQ SCH (09:11)
--- NOTE | 2022-03-10 10:23 | PCM.NOTE ---
Date and Time: 03/10/22 1019 Subjective Assessment: Pt's breathing is better. Pain is better on higher dose of tramadol. Yany po. - Review of Systems Constitutional: No Fever Respiratory: Cough, Short Of Breath Objective Exam General Appearance: no apparent distress, obese Neurologic Exam: oriented x 3, cooperative Skin Exam: normal color, warm, dry, No rash Ears, Nose, Throat Exam: moist mucous membranes Neck Exam: normal inspection Respiratory Exam: diminished breath sounds (fair air exchange), wheezing (faint scattered), No crackles/rales, No rhonchi Cardiovascular Exam: regular rate/rhythm, normal heart sounds, No murmur Extremity Exam: No swelling Back Exam: other (lipoma upper mid back approx 10x8cm, nttp) OBJECTIVE DATA Vital Signs: Vital Signs - 24 hr Temp Pulse Resp BP Pulse Ox 03/10/22 07:57 98.2 F 60 16 188/78 96 03/10/22 07:28 55 L 22 97 03/10/22 04:00 97.8 F 62 19 139/64 98 03/10/22 02:11 70 20 94 L 03/10/22 02:10 70 20 94 L 03/10/22 00:15 97.7 F 67 20 156/87 97 03/09/22 22:16 67 18 95 03/09/22 19:40 97.1 F 64 16 151/85 93 L 03/09/22 18:35 71 20 93 L 03/09/22 16:00 96.8 F 66 20 134/87 93 L 03/09/22 14:56 75 20 94 L 03/09/22 12:00 97.1 F 68 20 127/78 91 L 03/09/22 11:02 68 20 97 Pain Assessment - Last Documented Pain Intensity 0 Intake and Output: Intake & Output 03/07/22 03/08/22 03/09/22 03/10/22 11:59 11:59 11:59 11:59 Intake Total 820 1860 Balance 820 1860 Weight 135.7 kg 135.624 kg Lab Results: Lab Results-Last 24 Hours 03/09/22 03/09/22 03/09/22 Range/Units 05:50 11:27 17:01 WBC (4.0-10.5) x10^3/uL RBC (4.1-5.4) x10^6/uL Hgb (12.0-16.0) g/dL Hct (35-47) % MCV (78-100) fL MCH (26-32) pg MCHC (32-36) g/dL RDW (11.5-14.0) % Plt Count (150-450) x10^3/uL MPV (7.5-11.0) fL Gran % (36.0-66.0) % Immature Gran % (Auto) (0.00-0.4) % Nucleat RBC Rel Count (0.00-0.1) % Eos # (Auto) (0-0.5) x10^3/uL Immature Gran # (Auto) (0.00-0.03) x10^3u/L Absolute Lymphs (auto) (1.0-4.6) x10^3/uL Absolute Monos (auto) (0.0-1.3) x10^3/uL Absolute Nucleated RBC (0.00-0.01) x10^3u/L Lymphocytes % (24.0-44.0) % Monocytes % (0.0-12.0) % Eosinophils % (0.00-5.0) % Basophils % (0.0-0.4) % Absolute Granulocytes (1.4-6.9) x10^3/uL Basophils # (0-0.4) x10^3/uL D-Dimer 0.64 H* (0.0-0.50) mg/L Sodium (137-145) mmol/L Potassium (3.5-5.1) mmol/L Chloride (98-107) mmol/L Carbon Dioxide (22-30) mmol/L Anion Gap (5-15) MEQ/L BUN (7-17) mg/dL Creatinine (0.52-1.04) mg/dL Estimated GFR ML/MIN Glucose (74-106) mg/dL POC Glucometer 301 H 248 H (74 to 106) mg/dL Calcium (8.4-10.2) mg/dL 03/09/22 03/10/22 03/10/22 Range/Units 21:31 07:24 07:24 WBC 14.3 H (4.0-10.5) x10^3/uL RBC 4.49 (4.1-5.4) x10^6/uL Hgb 13.9 (12.0-16.0) g/dL Hct 45.8 (35-47) % MCV 102.0 H (78-100) fL MCH 31.0 (26-32) pg MCHC 30.3 L (32-36) g/dL RDW 13.6 (11.5-14.0) % Plt Count 294 D (150-450) x10^3/uL MPV 9.6 (7.5-11.0) fL Gran % 89.7 H (36.0-66.0) % Immature Gran % (Auto) 0.4 (0.00-0.4) % Nucleat RBC Rel Count 0.0 (0.00-0.1) % Eos # (Auto) 0.01 (0-0.5) x10^3/uL Immature Gran # (Auto) 0.05 H (0.00-0.03) x10^3u/L Absolute Lymphs (auto) 0.86 L (1.0-4.6) x10^3/uL Absolute Monos (auto) 0.52 (0.0-1.3) x10^3/uL Absolute Nucleated RBC 0.00 (0.00-0.01) x10^3u/L Lymphocytes % 6.0 L (24.0-44.0) % Monocytes % 3.6 (0.0-12.0) % Eosinophils % 0.1 (0.00-5.0) % Basophils % 0.2 (0.0-0.4) % Absolute Granulocytes 12.78 H (1.4-6.9) x10^3/uL Basophils # 0.03 (0-0.4) x10^3/uL D-Dimer (0.0-0.50) mg/L Sodium 137 (137-145) mmol/L Potassium 4.7 (3.5-5.1) mmol/L Chloride 97 L (98-107) mmol/L Carbon Dioxide 35 H (22-30) mmol/L Anion Gap 10.3 (5-15) MEQ/L BUN 23 H (7-17) mg/dL Creatinine 0.49 L (0.52-1.04) mg/dL Estimated GFR > 60.0 ML/MIN Glucose 257 H (74-106) mg/dL POC Glucometer 287 H (74 to 106) mg/dL Calcium 9.0 (8.4-10.2) mg/dL 03/10/22 Range/Units 07:49 WBC (4.0-10.5) x10^3/uL RBC (4.1-5.4) x10^6/uL Hgb (12.0-16.0) g/dL Hct (35-47) % MCV (78-100) fL MCH (26-32) pg MCHC (32-36) g/dL RDW (11.5-14.0) % Plt Count (150-450) x10^3/uL MPV (7.5-11.0) fL Gran % (36.0-66.0) % Immature Gran % (Auto) (0.00-0.4) % Nucleat RBC Rel Count (0.00-0.1) % Eos # (Auto) (0-0.5) x10^3/uL Immature Gran # (Auto) (0.00-0.03) x10^3u/L Absolute Lymphs (auto) (1.0-4.6) x10^3/uL Absolute Monos (auto) (0.0-1.3) x10^3/uL Absolute Nucleated RBC (0.00-0.01) x10^3u/L Lymphocytes % (24.0-44.0) % Monocytes % (0.0-12.0) % Eosinophils % (0.00-5.0) % Basophils % (0.0-0.4) % Absolute Granulocytes (1.4-6.9) x10^3/uL Basophils # (0-0.4) x10^3/uL D-Dimer (0.0-0.50) mg/L Sodium (137-145) mmol/L Potassium (3.5-5.1) mmol/L Chloride (98-107) mmol/L Carbon Dioxide (22-30) mmol/L Anion Gap (5-15) MEQ/L BUN (7-17) mg/dL Creatinine (0.52-1.04) mg/dL Estimated GFR ML/MIN Glucose (74-106) mg/dL POC Glucometer 249 H (74 to 106) mg/dL Calcium (8.4-10.2) mg/dL Radiology Exams: Radiology Procedures Category Date Time Status CHEST 1 VIEW (PORTABLE) Stat Exams 03/08/22 12:22 Completed CHEST WITH CONTRAST [CT] Urgent Exams 03/09/22 11:51 Completed Multi-Disciplinary Progress Notes: Multi-Disciplinary Progress Notes 03/10/22 00:34 Respiratory Note by Fanny Ellis RT called due to patient request. At that time, patient had increased anxiety and concerns over CPAP mask. Patient states at this time her anxiety has increased too much to go back on CPAP. She removed oxygen and went to bathroom. SpO2 decreased to 67% without oxygen. Placed back on oxymizer and SpO2 increased to 88% on 7L oxymizer. Increased to 8L. Patient recovered to 95%. Initialized on 03/10/22 00:34 - END OF NOTE Assessment/Plan (1) Asthma exacerbation Current Visit: Yes Status: Acute Qualifiers: Asthma severity: severe Asthma persistence: persistent Qualified Code(s): J45.51 - Severe persistent asthma with (acute) exacerbation Assessment & Plan: she is improving. will start decreasing steroid, from 125mg IV q8h to 80mg IV q8h. Code(s): J45.901 - UNSPECIFIED ASTHMA WITH (ACUTE) EXACERBATION (2) Community acquired pneumonia Current Visit: Yes Status: Acute Qualifiers: Laterality: right Lung location: lower lobe of lung Qualified Code(s): J18.9 - Pneumonia, unspecified organism Assessment & Plan: zithromax and rocephin day #3 Code(s): J18.9 - PNEUMONIA, UNSPECIFIED ORGANISM (3) Hypoxia Current Visit: No Status: Acute Assessment & Plan: not on O2 chronically at home, although she has gone home on O2 in the past after episode of hospitalization for PNA. Code(s): R09.02 - HYPOXEMIA (4) Anxiety Current Visit: No Status: Chronic Code(s): F41.9 - ANXIETY DISORDER, UNSPECIFIED (5) Leukocytosis Current Visit: No Status: Acute Code(s): D72.829 - ELEVATED WHITE BLOOD CELL COUNT, UNSPECIFIED (6) COPD (chronic obstructive pulmonary disease) Current Visit: No Status: Chronic Qualifiers: (7) Diabetes Current Visit: No Status: Chronic Qualifiers: Code(s): E11.9 - TYPE 2 DIABETES MELLITUS WITHOUT COMPLICATIONS (8) HTN (hypertension) Current Visit: No Status: Chronic Code(s): I10 - ESSENTIAL (PRIMARY) HYPERTENSION (9) Rheumatoid arthritis Current Visit: No Status: Chronic Qualifiers: Code(s): M06.9 - RHEUMATOID ARTHRITIS, UNSPECIFIED (10) Tobacco abuse Current Visit: Yes Status: Chronic Code(s): Z72.0 - TOBACCO USE (11) Tobacco abuse counseling Current Visit: Yes Status: Acute Code(s): Z71.6 - TOBACCO ABUSE COUNSELING
[2022-03-10] MEDS: HUMALOG SQ PRN (13:12)
[2022-03-10] MEDS: Acidophilus TABLET PO SCH ×3 (13:12→22:47)
[2022-03-10] MEDS: solu-MEDROL 80 MG, Sterile H2O 10 ml 2 ML IV SCH ×6 (13:12→22:52)
[2022-03-11] MEDS: HUMALOG SQ PRN ×4 (00:42→21:51)
[2022-03-11 06:01] LABS: Absolute Neutrophil Ct (ANC) 11.35 x10^3/uL (1.4-6.9); Basophil (Absolute #) 0.02 x10^3/uL (0-0.4); Eosinophil (Absolute #) 0 x10^3/uL (0-0.5); Hematocrit 45.7 % (35-47); Hemoglobin 13.6 g/dL (12.0-16.0); Lymphocyte (Absolute #) 0.81 x10^3/uL (1.0-4.6); Lymphocytes % 6.2 % (24.0-44.0); Mean Corpuscular Hemoglobin 30.4 pg (26-32); Mean Corpuscular Hgb Concent. 29.8 g/dL (32-36); Mean Platelet Volume 9.5 fL (7.5-11.0); Monocytes % 6.1 % (0.0-12.0); Neutrophil % 87.1 % (36.0-66.0); Platelet Count 299 x10^3/uL (150-450); Red Blood Count 4.48 x10^6/uL (4.1-5.4); Red Cell Distribution Width 13.4 % (11.5-14.0)
[2022-03-11 06:35] LABS: ALBUMIN 3.6 g/dL (3.5-5.0); ALKALINE PHOSPHATASE 88 U/L (38-126); BLOOD UREA NITROGEN 24 mg/dL (7-17); CHLORIDE 95 mmol/L (98-107); Calcium 9.2 mg/dL (8.4-10.2); Creatinine 1 0.48 mg/dL (0.52-1.04); EST GLOMERULAR FILTRATION RATE > 60.0 ML/MIN; Glucose 256 mg/dL (74-106); Potassium 5.4 mmol/L (3.5-5.1); SGOT/AST 18 U/L (14-36); SGPT/ALT 38 U/L (0-35); SODIUM 137 mmol/L (137-145); Total Protein 7.2 g/dL (6.3-8.2)
[2022-03-11] MEDS ORDERED: solu-MEDROL ONE ×2 (06:38→21:46)
[2022-03-11 06:42] LABS: Carbon Dioxide 35 mmol/L (22-30)
[2022-03-11 06:53] LABS: ANION GAP 12.4 MEQ/L (5-15)
[2022-03-11] MEDS: solu-MEDROL 80 MG, Sterile H2O 10 ml 2 ML IV SCH ×6 (06:58→21:52)
[2022-03-11] MEDS: Advair Hfa 115/21 Common canister IH SCH ×2 (07:07→18:49)
[2022-03-11] MEDS: DUONEB 0.5-3 MG/3 ml Neb IH SCH ×4 (07:07→18:39)
[2022-03-11] MEDS: Acidophilus TABLET PO SCH ×3 (09:31→21:52)
[2022-03-11] MEDS: FOLATE 1 MG PO SCH (09:31)
[2022-03-11] MEDS: Zithromax 500 MG/ 250 ML NaCl Premix 500 MG/250 ML IVPB IV SCH (09:31)
[2022-03-11] MEDS: ENOXAPARIN SODIUM SQ SCH (09:31)
[2022-03-11] MEDS: ROCEPHIN 1 Gm-D5w 50 ml Bag** 1 G/50 ML IVPB IV SCH (09:31)
[2022-03-11] MEDS: Cymbalta 30 MG Capsule PO SCH (09:32)
[2022-03-11] MEDS: Coreg 3.125 MG PO SCH ×2 (09:32→21:52)
[2022-03-11] MEDS: hydroDIURIL 25 MG PO SCH (09:32)
[2022-03-11] MEDS: clonazePAM PO SCH ×3 (09:32→21:52)
[2022-03-11] MEDS: Zestril 20 MG PO SCH (09:32)
[2022-03-12 06:12] LABS: Absolute Neutrophil Ct (ANC) 8.37 x10^3/uL (1.4-6.9); Basophil (Absolute #) 0.02 x10^3/uL (0-0.4); Eosinophil (Absolute #) 0 x10^3/uL (0-0.5); Hematocrit 44.2 % (35-47); Hemoglobin 13.3 g/dL (12.0-16.0); Lymphocyte (Absolute #) 0.76 x10^3/uL (1.0-4.6); Lymphocytes % 7.7 % (24.0-44.0); Mean Cell Volume 101.4 fL (78-100); Mean Corpuscular Hemoglobin 30.5 pg (26-32); Mean Corpuscular Hgb Concent. 30.1 g/dL (32-36); Mean Platelet Volume 9.6 fL (7.5-11.0); Monocyte (Absolute #) 0.63 x10^3/uL (0.0-1.3); Monocytes % 6.4 % (0.0-12.0); Neutrophil % 84.8 % (36.0-66.0); Platelet Count 281 x10^3/uL (150-450); Red Blood Count 4.36 x10^6/uL (4.1-5.4); Red Cell Distribution Width 13.1 % (11.5-14.0); White Blood Count 9.9 x10^3/uL (4.0-10.5)
[2022-03-12] MEDS ORDERED: solu-MEDROL ONE ×2 (06:20→14:18)
[2022-03-12] MEDS: solu-MEDROL 80 MG, Sterile H2O 10 ml 2 ML IV SCH ×6 (06:35→21:45)
[2022-03-12 06:49] LABS: ALBUMIN 3.4 g/dL (3.5-5.0); ALKALINE PHOSPHATASE 81 U/L (38-126); ANION GAP 7.7 MEQ/L (5-15); BLOOD UREA NITROGEN 26 mg/dL (7-17); CHLORIDE 95 mmol/L (98-107); Calcium 8.6 mg/dL (8.4-10.2); Carbon Dioxide 38 mmol/L (22-30); EST GLOMERULAR FILTRATION RATE > 60.0 ML/MIN; Glucose 287 mg/dL (74-106); Potassium 4.5 mmol/L (3.5-5.1); SGOT/AST 18 U/L (14-36); SGPT/ALT 38 U/L (0-35); SODIUM 136 mmol/L (137-145); Total Protein 6.9 g/dL (6.3-8.2)
[2022-03-12] MEDS: DUONEB 0.5-3 MG/3 ml Neb IH SCH ×4 (07:43→19:26)
[2022-03-12] MEDS: Advair Hfa 115/21 Common canister IH SCH ×2 (07:51→19:28)
[2022-03-12] MEDS: clonazePAM PO SCH ×3 (10:16→21:44)
[2022-03-12] MEDS: FOLATE 1 MG PO SCH (10:16)
[2022-03-12] MEDS: hydroDIURIL 25 MG PO SCH (10:16)
[2022-03-12] MEDS: Cymbalta 30 MG Capsule PO SCH (10:16)
[2022-03-12] MEDS: ENOXAPARIN SODIUM SQ SCH (10:17)
[2022-03-12] MEDS: HUMALOG SQ PRN ×4 (10:17→21:45)
[2022-03-12] MEDS: Zestril 20 MG PO SCH (10:17)
[2022-03-12] MEDS: ROCEPHIN 1 Gm-D5w 50 ml Bag** 1 G/50 ML IVPB IV SCH (10:17)
[2022-03-12] MEDS: Acidophilus TABLET PO SCH ×3 (10:17→21:44)
[2022-03-12] MEDS: Coreg 3.125 MG PO SCH ×2 (10:17→21:44)
[2022-03-12] MEDS: Zithromax 500 MG/ 250 ML NaCl Premix 500 MG/250 ML IVPB IV SCH (10:18)
[2022-03-12] MEDS: ULTRAM 50 MG PO PRN (21:44)
--- NOTE | 2022-03-12 22:57 | PCM.NOTE ---
Date and Time: 03/11/22 1300 Late Entry Subjective Assessment: Patient continues to improve ,states bringing up mucus after "pulmonary exercises". Appetite is good .Metformin is on hold due to contrast. 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 Objective Exam General Appearance: no apparent distress Neurologic Exam: alert, oriented x 3, cooperative Skin Exam: warm, dry, pale Ears, Nose, Throat Exam: normal ENT inspection Respiratory Exam: diminished breath sounds, other (is wearing Cpap mask) Cardiovascular Exam: bradycardia (64 regular) OBJECTIVE DATA Vital Signs: Vital Signs - 24 hr Temp Pulse Resp BP Pulse Ox 03/12/22 19:54 97.5 F 64 20 154/82 91 L 03/12/22 19:26 64 20 93 L 03/12/22 16:00 97.2 F 50 L 18 143/69 93 L 03/12/22 12:00 97.5 F 55 L 20 150/78 97 03/12/22 11:56 55 L 18 97 03/12/22 08:00 97 F 55 L 22 135/69 95 03/12/22 07:54 50 L 20 92 L 03/12/22 04:00 97.9 F 50 L 18 137/87 96 03/11/22 23:56 97.5 F 55 L 20 158/76 95 Pain Assessment - Last Documented Pain Intensity 0 Intake and Output: Intake & Output 03/10/22 03/11/22 03/12/22 03/13/22 11:59 11:59 11:59 11:59 Intake Total 1860 1855 2400 780 Balance 1860 1855 2400 780 Weight 135.624 kg 139.4 kg 139 kg Lab Results: Lab Results-Last 24 Hours 03/12/22 03/12/22 03/12/22 Range/Units 05:26 05:26 07:31 WBC 9.9 (4.0-10.5) x10^3/uL RBC 4.36 (4.1-5.4) x10^6/uL Hgb 13.3 (12.0-16.0) g/dL Hct 44.2 (35-47) % MCV 101.4 H (78-100) fL MCH 30.5 (26-32) pg MCHC 30.1 L (32-36) g/dL RDW 13.1 (11.5-14.0) % Plt Count 281 (150-450) x10^3/uL MPV 9.6 (7.5-11.0) fL Gran % 84.8 H (36.0-66.0) % Immature Gran % (Auto) 0.9 H (0.00-0.4) % Nucleat RBC Rel Count 0.0 (0.00-0.1) % Eos # (Auto) 0 (0-0.5) x10^3/uL Immature Gran # (Auto) 0.09 H (0.00-0.03) x10^3u/L Absolute Lymphs (auto) 0.76 L (1.0-4.6) x10^3/uL Absolute Monos (auto) 0.63 (0.0-1.3) x10^3/uL Absolute Nucleated RBC 0.00 (0.00-0.01) x10^3u/L Lymphocytes % 7.7 L (24.0-44.0) % Monocytes % 6.4 (0.0-12.0) % Eosinophils % 0.0 (0.00-5.0) % Basophils % 0.2 (0.0-0.4) % Absolute Granulocytes 8.37 H (1.4-6.9) x10^3/uL Basophils # 0.02 (0-0.4) x10^3/uL Sodium 136 L (137-145) mmol/L Potassium 4.5 (3.5-5.1) mmol/L Chloride 95 L (98-107) mmol/L Carbon Dioxide 38 H (22-30) mmol/L Anion Gap 7.7 (5-15) MEQ/L BUN 26 H (7-17) mg/dL Creatinine 0.50 L (0.52-1.04) mg/dL Estimated GFR > 60.0 ML/MIN Glucose 287 H (74-106) mg/dL POC Glucometer 258 H (74 to 106) mg/dL Calcium 8.6 (8.4-10.2) mg/dL Total Bilirubin 0.30 (0.2-1.3) mg/dL AST 18 (14-36) U/L ALT 38 H (0-35) U/L Alkaline Phosphatase 81 (38-126) U/L Serum Total Protein 6.9 (6.3-8.2) g/dL Albumin 3.4 L (3.5-5.0) g/dL 03/12/22 03/12/22 03/12/22 Range/Units 11:43 16:15 20:42 WBC (4.0-10.5) x10^3/uL RBC (4.1-5.4) x10^6/uL Hgb (12.0-16.0) g/dL Hct (35-47) % MCV (78-100) fL MCH (26-32) pg MCHC (32-36) g/dL RDW (11.5-14.0) % Plt Count (150-450) x10^3/uL MPV (7.5-11.0) fL Gran % (36.0-66.0) % Immature Gran % (Auto) (0.00-0.4) % Nucleat RBC Rel Count (0.00-0.1) % Eos # (Auto) (0-0.5) x10^3/uL Immature Gran # (Auto) (0.00-0.03) x10^3u/L Absolute Lymphs (auto) (1.0-4.6) x10^3/uL Absolute Monos (auto) (0.0-1.3) x10^3/uL Absolute Nucleated RBC (0.00-0.01) x10^3u/L Lymphocytes % (24.0-44.0) % Monocytes % (0.0-12.0) % Eosinophils % (0.00-5.0) % Basophils % (0.0-0.4) % Absolute Granulocytes (1.4-6.9) x10^3/uL Basophils # (0-0.4) x10^3/uL Sodium (137-145) mmol/L Potassium (3.5-5.1) mmol/L Chloride (98-107) mmol/L Carbon Dioxide (22-30) mmol/L Anion Gap (5-15) MEQ/L BUN (7-17) mg/dL Creatinine (0.52-1.04) mg/dL Estimated GFR ML/MIN Glucose (74-106) mg/dL POC Glucometer 381 H 371 H 447 H (74 to 106) mg/dL Calcium (8.4-10.2) mg/dL Total Bilirubin (0.2-1.3) mg/dL AST (14-36) U/L ALT (0-35) U/L Alkaline Phosphatase (38-126) U/L Serum Total Protein (6.3-8.2) g/dL Albumin (3.5-5.0) g/dL Assessment/Plan (1) Asthma exacerbation Current Visit: Yes Status: Acute Qualifiers: Asthma severity: severe Asthma persistence: persistent Qualified Code(s): J45.51 - Severe persistent asthma with (acute) exacerbation Assessment & Plan: slow improvement Code(s): J45.901 - UNSPECIFIED ASTHMA WITH (ACUTE) EXACERBATION (2) Pneumonia Current Visit: Yes Status: Acute Qualifiers: Pneumonia type: due to unspecified organism Code(s): J18.9 - PNEUMONIA, UNSPECIFIED ORGANISM (3) Diabetes Current Visit: Yes Status: Chronic Qualifiers: Diabetes mellitus type: type 2 Assessment & Plan: hyperglycemia on steroids-is on sliding scale -metformin on hold [facility] 03/13/22 Code(s): E11.9 - TYPE 2 DIABETES MELLITUS WITHOUT COMPLICATIONS
--- NOTE | 2022-03-12 23:10 | PCM.NOTE ---
Date and Time: 03/12/22 1500 Subjective Assessment: Patient is improving, RT has reduced O2 now with NC. 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 Objective Exam General Appearance: no apparent distress Neurologic Exam: alert, oriented x 3, cooperative, normal mood/affect Skin Exam: warm, dry, pale Ears, Nose, Throat Exam: normal ENT inspection Respiratory Exam: rhonchi (right mid), wheezing (mid bilaterally) Cardiovascular Exam: bradycardia (regular) OBJECTIVE DATA Vital Signs: Vital Signs - 24 hr Temp Pulse Resp BP Pulse Ox 03/12/22 19:54 97.5 F 64 20 154/82 91 L 03/12/22 19:26 64 20 93 L 03/12/22 16:00 97.2 F 50 L 18 143/69 93 L 03/12/22 12:00 97.5 F 55 L 20 150/78 97 03/12/22 11:56 55 L 18 97 03/12/22 08:00 97 F 55 L 22 135/69 95 03/12/22 07:54 50 L 20 92 L 03/12/22 04:00 97.9 F 50 L 18 137/87 96 03/11/22 23:56 97.5 F 55 L 20 158/76 95 Pain Assessment - Last Documented Pain Intensity 0 Intake and Output: Intake & Output 03/10/22 03/11/22 03/12/22 03/13/22 11:59 11:59 11:59 11:59 Intake Total 1860 1855 2400 780 Balance 1860 1855 2400 780 Weight 135.624 kg 139.4 kg 139 kg Lab Results: Lab Results-Last 24 Hours 03/12/22 03/12/22 03/12/22 Range/Units 05:26 05:26 07:31 WBC 9.9 (4.0-10.5) x10^3/uL RBC 4.36 (4.1-5.4) x10^6/uL Hgb 13.3 (12.0-16.0) g/dL Hct 44.2 (35-47) % MCV 101.4 H (78-100) fL MCH 30.5 (26-32) pg MCHC 30.1 L (32-36) g/dL RDW 13.1 (11.5-14.0) % Plt Count 281 (150-450) x10^3/uL MPV 9.6 (7.5-11.0) fL Gran % 84.8 H (36.0-66.0) % Immature Gran % (Auto) 0.9 H (0.00-0.4) % Nucleat RBC Rel Count 0.0 (0.00-0.1) % Eos # (Auto) 0 (0-0.5) x10^3/uL Immature Gran # (Auto) 0.09 H (0.00-0.03) x10^3u/L Absolute Lymphs (auto) 0.76 L (1.0-4.6) x10^3/uL Absolute Monos (auto) 0.63 (0.0-1.3) x10^3/uL Absolute Nucleated RBC 0.00 (0.00-0.01) x10^3u/L Lymphocytes % 7.7 L (24.0-44.0) % Monocytes % 6.4 (0.0-12.0) % Eosinophils % 0.0 (0.00-5.0) % Basophils % 0.2 (0.0-0.4) % Absolute Granulocytes 8.37 H (1.4-6.9) x10^3/uL Basophils # 0.02 (0-0.4) x10^3/uL Sodium 136 L (137-145) mmol/L Potassium 4.5 (3.5-5.1) mmol/L Chloride 95 L (98-107) mmol/L Carbon Dioxide 38 H (22-30) mmol/L Anion Gap 7.7 (5-15) MEQ/L BUN 26 H (7-17) mg/dL Creatinine 0.50 L (0.52-1.04) mg/dL Estimated GFR > 60.0 ML/MIN Glucose 287 H (74-106) mg/dL POC Glucometer 258 H (74 to 106) mg/dL Calcium 8.6 (8.4-10.2) mg/dL Total Bilirubin 0.30 (0.2-1.3) mg/dL AST 18 (14-36) U/L ALT 38 H (0-35) U/L Alkaline Phosphatase 81 (38-126) U/L Serum Total Protein 6.9 (6.3-8.2) g/dL Albumin 3.4 L (3.5-5.0) g/dL 03/12/22 03/12/22 03/12/22 Range/Units 11:43 16:15 20:42 WBC (4.0-10.5) x10^3/uL RBC (4.1-5.4) x10^6/uL Hgb (12.0-16.0) g/dL Hct (35-47) % MCV (78-100) fL MCH (26-32) pg MCHC (32-36) g/dL RDW (11.5-14.0) % Plt Count (150-450) x10^3/uL MPV (7.5-11.0) fL Gran % (36.0-66.0) % Immature Gran % (Auto) (0.00-0.4) % Nucleat RBC Rel Count (0.00-0.1) % Eos # (Auto) (0-0.5) x10^3/uL Immature Gran # (Auto) (0.00-0.03) x10^3u/L Absolute Lymphs (auto) (1.0-4.6) x10^3/uL Absolute Monos (auto) (0.0-1.3) x10^3/uL Absolute Nucleated RBC (0.00-0.01) x10^3u/L Lymphocytes % (24.0-44.0) % Monocytes % (0.0-12.0) % Eosinophils % (0.00-5.0) % Basophils % (0.0-0.4) % Absolute Granulocytes (1.4-6.9) x10^3/uL Basophils # (0-0.4) x10^3/uL Sodium (137-145) mmol/L Potassium (3.5-5.1) mmol/L Chloride (98-107) mmol/L Carbon Dioxide (22-30) mmol/L Anion Gap (5-15) MEQ/L BUN (7-17) mg/dL Creatinine (0.52-1.04) mg/dL Estimated GFR ML/MIN Glucose (74-106) mg/dL POC Glucometer 381 H 371 H 447 H (74 to 106) mg/dL Calcium (8.4-10.2) mg/dL Total Bilirubin (0.2-1.3) mg/dL AST (14-36) U/L ALT (0-35) U/L Alkaline Phosphatase (38-126) U/L Serum Total Protein (6.3-8.2) g/dL Albumin (3.5-5.0) g/dL Assessment/Plan (1) Asthma exacerbation Current Visit: Yes Status: Acute Qualifiers: Asthma severity: severe Asthma persistence: persistent Qualified Code(s): J45.51 - Severe persistent asthma with (acute) exacerbation Assessment & Plan: improved Code(s): J45.901 - UNSPECIFIED ASTHMA WITH (ACUTE) EXACERBATION (2) Pneumonia Current Visit: Yes Status: Acute Qualifiers: Pneumonia type: due to unspecified organism Assessment & Plan: improved Code(s): J18.9 - PNEUMONIA, UNSPECIFIED ORGANISM (3) Diabetes Current Visit: Yes Status: Chronic Qualifiers: Diabetes mellitus type: type 2 Code(s): E11.9 - TYPE 2 DIABETES MELLITUS WITHOUT COMPLICATIONS (4) Hyperglycemia Current Visit: Yes Status: Acute Assessment & Plan: increased to high dose sliding scale-will restart Metformin tomorrow ,was off due to having contrast Code(s): R73.9 - HYPERGLYCEMIA, UNSPECIFIED
[2022-03-13 04:50] LABS: Absolute Neutrophil Ct (ANC) 9.04 x10^3/uL (1.4-6.9); Basophil (Absolute #) 0.03 x10^3/uL (0-0.4); Eosinophil (Absolute #) 0 x10^3/uL (0-0.5); Hematocrit 44.3 % (35-47); Hemoglobin 13.7 g/dL (12.0-16.0); Lymphocytes % 8.2 % (24.0-44.0); Mean Cell Volume 98.9 fL (78-100); Mean Corpuscular Hemoglobin 30.6 pg (26-32); Mean Corpuscular Hgb Concent. 30.9 g/dL (32-36); Mean Platelet Volume 9.4 fL (7.5-11.0); Monocytes % 7.2 % (0.0-12.0); Neutrophil % 81.9 % (36.0-66.0); Platelet Count 269 x10^3/uL (150-450); Red Blood Count 4.48 x10^6/uL (4.1-5.4); Red Cell Distribution Width 13.1 % (11.5-14.0)
[2022-03-13 05:59] LABS: ALBUMIN 3.4 g/dL (3.5-5.0); ALKALINE PHOSPHATASE 82 U/L (38-126); ANION GAP 7.4 MEQ/L (5-15); BLOOD UREA NITROGEN 22 mg/dL (7-17); CHLORIDE 94 mmol/L (98-107); Calcium 8.6 mg/dL (8.4-10.2); Carbon Dioxide 39 mmol/L (22-30); Creatinine 1 0.46 mg/dL (0.52-1.04); EST GLOMERULAR FILTRATION RATE > 60.0 ML/MIN; Glucose 227 mg/dL (74-106); Potassium 4.3 mmol/L (3.5-5.1); SGOT/AST 17 U/L (14-36); SGPT/ALT 35 U/L (0-35); SODIUM 136 mmol/L (137-145); Total Protein 6.8 g/dL (6.3-8.2)
[2022-03-13] MEDS ORDERED: solu-MEDROL ONE ×2 (06:06→19:53)
[2022-03-13] MEDS: solu-MEDROL 80 MG, Sterile H2O 10 ml 2 ML IV SCH ×6 (06:13→21:25)
[2022-03-13] MEDS: DUONEB 0.5-3 MG/3 ml Neb IH SCH ×4 (08:18→19:45)
[2022-03-13] MEDS: Advair Hfa 115/21 Common canister IH SCH ×2 (08:18→19:47)
--- NOTE | 2022-03-13 08:41 | PCM.NOTE ---
Date and Time: 03/13/22833 Subjective Assessment: patient is feeling some better. still requiring oxygen at this time, c/o joint pain all over Objective Exam General Appearance: no apparent distress, obese Neurologic Exam: alert, cooperative Respiratory Exam: prolonged expirations, crackles/rales Cardiovascular Exam: regular rate/rhythm, normal heart sounds Gastrointestinal/Abdomen Exam: soft, No tenderness, No mass Extremity Exam: normal inspection, normal range of motion OBJECTIVE DATA Vital Signs: Vital Signs - 24 hr Temp Pulse Resp BP Pulse Ox 03/13/22 08:22 55 L 16 92 L 03/13/22 07:51 97.0 F 47 L 16 162/78 91 L 03/13/22 04:00 49 L 93 L 03/13/22 00:00 97.5 F 54 L 18 165/84 97 03/12/22 19:54 97.5 F 64 20 154/82 91 L 03/12/22 19:26 64 20 93 L 03/12/22 16:00 97.2 F 50 L 18 143/69 93 L 03/12/22 12:00 97.5 F 55 L 20 150/78 97 03/12/22 11:56 55 L 18 97 Pain Assessment - Last Documented Pain Intensity 0 Intake and Output: Intake & Output 03/10/22 03/11/22 03/12/22 03/13/22 11:59 11:59 11:59 11:59 Intake Total 1860 1855 2400 780 Balance 1860 1855 2400 780 Weight 135.624 kg 139.4 kg 139 kg Lab Results: Lab Results-Last 24 Hours 03/12/22 03/12/22 03/12/22 Range/Units 11:43 16:15 20:42 WBC (4.0-10.5) x10^3/uL RBC (4.1-5.4) x10^6/uL Hgb (12.0-16.0) g/dL Hct (35-47) % MCV (78-100) fL MCH (26-32) pg MCHC (32-36) g/dL RDW (11.5-14.0) % Plt Count (150-450) x10^3/uL MPV (7.5-11.0) fL Gran % (36.0-66.0) % Immature Gran % (Auto) (0.00-0.4) % Nucleat RBC Rel Count (0.00-0.1) % Eos # (Auto) (0-0.5) x10^3/uL Immature Gran # (Auto) (0.00-0.03) x10^3u/L Absolute Lymphs (auto) (1.0-4.6) x10^3/uL Absolute Monos (auto) (0.0-1.3) x10^3/uL Absolute Nucleated RBC (0.00-0.01) x10^3u/L Lymphocytes % (24.0-44.0) % Monocytes % (0.0-12.0) % Eosinophils % (0.00-5.0) % Basophils % (0.0-0.4) % Absolute Granulocytes (1.4-6.9) x10^3/uL Basophils # (0-0.4) x10^3/uL Sodium (137-145) mmol/L Potassium (3.5-5.1) mmol/L Chloride (98-107) mmol/L Carbon Dioxide (22-30) mmol/L Anion Gap (5-15) MEQ/L BUN (7-17) mg/dL Creatinine (0.52-1.04) mg/dL Estimated GFR ML/MIN Glucose (74-106) mg/dL POC Glucometer 381 H 371 H 447 H (74 to 106) mg/dL Calcium (8.4-10.2) mg/dL Total Bilirubin (0.2-1.3) mg/dL AST (14-36) U/L ALT (0-35) U/L Alkaline Phosphatase (38-126) U/L Serum Total Protein (6.3-8.2) g/dL Albumin (3.5-5.0) g/dL 03/13/22 03/13/22 03/13/22 Range/Units 04:25 04:25 07:27 WBC 11.0 H (4.0-10.5) x10^3/uL RBC 4.48 (4.1-5.4) x10^6/uL Hgb 13.7 (12.0-16.0) g/dL Hct 44.3 (35-47) % MCV 98.9 (78-100) fL MCH 30.6 (26-32) pg MCHC 30.9 L (32-36) g/dL RDW 13.1 (11.5-14.0) % Plt Count 269 (150-450) x10^3/uL MPV 9.4 (7.5-11.0) fL Gran % 81.9 H (36.0-66.0) % Immature Gran % (Auto) 2.4 H (0.00-0.4) % Nucleat RBC Rel Count 0.0 (0.00-0.1) % Eos # (Auto) 0 (0-0.5) x10^3/uL Immature Gran # (Auto) 0.27 H (0.00-0.03) x10^3u/L Absolute Lymphs (auto) 0.90 L (1.0-4.6) x10^3/uL Absolute Monos (auto) 0.80 (0.0-1.3) x10^3/uL Absolute Nucleated RBC 0.00 (0.00-0.01) x10^3u/L Lymphocytes % 8.2 L (24.0-44.0) % Monocytes % 7.2 (0.0-12.0) % Eosinophils % 0.0 (0.00-5.0) % Basophils % 0.3 (0.0-0.4) % Absolute Granulocytes 9.04 H (1.4-6.9) x10^3/uL Basophils # 0.03 (0-0.4) x10^3/uL Sodium 136 L (137-145) mmol/L Potassium 4.3 (3.5-5.1) mmol/L Chloride 94 L (98-107) mmol/L Carbon Dioxide 39 H (22-30) mmol/L Anion Gap 7.4 (5-15) MEQ/L BUN 22 H (7-17) mg/dL Creatinine 0.46 L (0.52-1.04) mg/dL Estimated GFR > 60.0 ML/MIN Glucose 227 H (74-106) mg/dL POC Glucometer 219 H (74 to 106) mg/dL Calcium 8.6 (8.4-10.2) mg/dL Total Bilirubin 0.30 (0.2-1.3) mg/dL AST 17 (14-36) U/L ALT 35 (0-35) U/L Alkaline Phosphatase 82 (38-126) U/L Serum Total Protein 6.8 (6.3-8.2) g/dL Albumin 3.4 L (3.5-5.0) g/dL Assessment/Plan (1) Community acquired pneumonia Current Visit: Yes Status: Acute Qualifiers: Laterality: right Lung location: lower lobe of lung Qualified Code(s): J18.9 - Pneumonia, unspecified organism Assessment & Plan: continue rocephin/zithromax Code(s): J18.9 - PNEUMONIA, UNSPECIFIED ORGANISM (2) Asthma exacerbation Current Visit: Yes Status: Acute Qualifiers: Asthma severity: severe Asthma persistence: persistent Qualified Code(s): J45.51 - Severe persistent asthma with (acute) exacerbation Assessment & Plan: continue IV solu medrol, rocephin/zithromax and nebs Code(s): J45.901 - UNSPECIFIED ASTHMA WITH (ACUTE) EXACERBATION (3) Rheumatoid arthritis Current Visit: No Status: Chronic Qualifiers: Code(s): M06.9 - RHEUMATOID ARTHRITIS, UNSPECIFIED
[2022-03-13] MEDS: Cymbalta 30 MG Capsule PO SCH (08:45)
[2022-03-13] MEDS: ULTRAM 50 MG PO PRN ×2 (08:46→21:26)
[2022-03-13] MEDS: clonazePAM PO SCH ×3 (08:46→21:25)
[2022-03-13] MEDS: Coreg 3.125 MG PO SCH ×2 (08:46→21:25)
[2022-03-13] MEDS: hydroDIURIL 25 MG PO SCH (08:46)
[2022-03-13] MEDS: Zestril 20 MG PO SCH (08:46)
[2022-03-13] MEDS: ENOXAPARIN SODIUM SQ SCH (08:46)
[2022-03-13] MEDS: FOLATE 1 MG PO SCH (08:46)
[2022-03-13] MEDS: Acidophilus TABLET PO SCH ×3 (08:46→21:25)
[2022-03-13] MEDS: HUMALOG SQ PRN ×4 (08:47→21:26)
[2022-03-13] MEDS: ROCEPHIN 1 Gm-D5w 50 ml Bag** 1 G/50 ML IVPB IV SCH (08:47)
[2022-03-13] MEDS: Zithromax 500 MG/ 250 ML NaCl Premix 500 MG/250 ML IVPB IV SCH (10:34)
[2022-03-14 05:14] LABS: Absolute Neutrophil Ct (ANC) 10.49 x10^3/uL (1.4-6.9); Basophil (Absolute #) 0.03 x10^3/uL (0-0.4); Eosinophil (Absolute #) 0 x10^3/uL (0-0.5); Hematocrit 44.6 % (35-47); Lymphocytes % 6.5 % (24.0-44.0); Mean Cell Volume 97.4 fL (78-100); Mean Corpuscular Hemoglobin 30.6 pg (26-32); Mean Corpuscular Hgb Concent. 31.4 g/dL (32-36); Mean Platelet Volume 9.6 fL (7.5-11.0); Monocyte (Absolute #) 0.67 x10^3/uL (0.0-1.3); Monocytes % 5.5 % (0.0-12.0); Neutrophil % 85.6 % (36.0-66.0); Platelet Count 289 x10^3/uL (150-450); Red Blood Count 4.58 x10^6/uL (4.1-5.4); Red Cell Distribution Width 13.3 % (11.5-14.0); White Blood Count 12.3 x10^3/uL (4.0-10.5)
[2022-03-14 05:33] LABS: ALBUMIN 3.3 g/dL (3.5-5.0); ALKALINE PHOSPHATASE 78 U/L (38-126); BLOOD UREA NITROGEN 19 mg/dL (7-17); CHLORIDE 94 mmol/L (98-107); Calcium 8.6 mg/dL (8.4-10.2); Creatinine 1 0.48 mg/dL (0.52-1.04); EST GLOMERULAR FILTRATION RATE > 60.0 ML/MIN; Glucose 308 mg/dL (74-106); Potassium 4.4 mmol/L (3.5-5.1); SGOT/AST 16 U/L (14-36); SGPT/ALT 31 U/L (0-35); SODIUM 134 mmol/L (137-145); Total Protein 6.7 g/dL (6.3-8.2)
[2022-03-14] MEDS ORDERED: solu-MEDROL ONE (05:33)
[2022-03-14] MEDS: solu-MEDROL 80 MG, Sterile H2O 10 ml 2 ML IV SCH ×2 (05:37)
[2022-03-14 05:40] LABS: Carbon Dioxide 36 mmol/L (22-30)
[2022-03-14 06:30] LABS: ANION GAP 8.4 MEQ/L (5-15)
[2022-03-14] MEDS: Advair Hfa 115/21 Common canister IH SCH ×2 (07:18→19:26)
[2022-03-14] MEDS: DUONEB 0.5-3 MG/3 ml Neb IH SCH ×4 (07:18→19:17)
[2022-03-14] MEDS: HUMALOG SQ PRN ×4 (08:18→21:16)
[2022-03-14] MEDS: Acidophilus TABLET PO SCH ×3 (08:55→21:16)
[2022-03-14] MEDS: Coreg 3.125 MG PO SCH ×2 (08:55→21:16)
[2022-03-14] MEDS: ROCEPHIN 1 Gm-D5w 50 ml Bag** 1 G/50 ML IVPB IV SCH (08:55)
[2022-03-14] MEDS: ENOXAPARIN SODIUM SQ SCH (08:55)
[2022-03-14] MEDS: hydroDIURIL 25 MG PO SCH (08:55)
[2022-03-14] MEDS: FOLATE 1 MG PO SCH (08:55)
[2022-03-14] MEDS: clonazePAM PO SCH ×3 (08:55→21:16)
[2022-03-14] MEDS: Zithromax 500 MG/ 250 ML NaCl Premix 500 MG/250 ML IVPB IV SCH (08:55)
[2022-03-14] MEDS: Cymbalta 30 MG Capsule PO SCH (08:55)
[2022-03-14] MEDS: Zestril 20 MG PO SCH (08:56)
[2022-03-14] MEDS: ULTRAM 50 MG PO PRN ×3 (09:03→21:16)
--- NOTE | 2022-03-14 13:11 | PCM.NOTE ---
Date and Time: 03/14/22 1308 Subjective Assessment: She is feeling better, breathing better. On 2L NC in the day and 4L at night (BiPap). Interested in learning more about gluten-free diet. Interested in going home. - Review of Systems Constitutional: No Fever Respiratory: Short Of Breath Objective Exam General Appearance: no apparent distress, alert Neurologic Exam: oriented x 3, cooperative Skin Exam: normal color, warm, dry, No rash Eye Exam: eyes nml inspection Ears, Nose, Throat Exam: moist mucous membranes Neck Exam: normal inspection Respiratory Exam: diminished breath sounds (fair air exchange), prolonged expirations, No crackles/rales, No rhonchi, No wheezing Cardiovascular Exam: regular rate/rhythm, normal heart sounds, No murmur Gastrointestinal/Abdomen Exam: soft, normal bowel sounds Extremity Exam: No pedal edema, No swelling Back Exam: normal inspection, No rash OBJECTIVE DATA Vital Signs: Vital Signs - 24 hr Temp Pulse Resp BP Pulse Ox 03/14/22 11:31 97.3 F 49 L 20 169/78 93 L 03/14/22 11:11 49 L 16 94 L 03/14/22 07:49 97.0 F 57 L 21 166/85 92 L 03/14/22 07:24 46 L 14 92 L 03/14/22 04:00 95.9 F 50 L 18 143/77 95 03/13/22 23:42 96.3 F 54 L 18 161/72 91 L 03/13/22 19:45 65 18 91 L 03/13/22 19:03 97.5 F 69 18 143/70 91 L 03/13/22 16:00 97.8 F 55 L 16 169/83 91 L 03/13/22 15:27 59 L 16 92 L Pain Assessment - Last Documented Pain Intensity 2 Intake and Output: Intake & Output 03/12/22 03/13/22 03/14/22 03/15/22 11:59 11:59 11:59 11:59 Intake Total 2400 1230 1530 240 Balance 2400 1230 1530 240 Weight 139 kg Lab Results: Lab Results-Last 24 Hours 03/13/22 03/13/22 03/13/22 Range/Units 04:51 16:14 21:15 WBC (4.0-10.5) x10^3/uL RBC (4.1-5.4) x10^6/uL Hgb (12.0-16.0) g/dL Hct (35-47) % MCV (78-100) fL MCH (26-32) pg MCHC (32-36) g/dL RDW (11.5-14.0) % Plt Count (150-450) x10^3/uL MPV (7.5-11.0) fL Gran % (36.0-66.0) % Immature Gran % (Auto) (0.00-0.4) % Nucleat RBC Rel Count (0.00-0.1) % Eos # (Auto) (0-0.5) x10^3/uL Immature Gran # (Auto) (0.00-0.03) x10^3u/L Absolute Lymphs (auto) (1.0-4.6) x10^3/uL Absolute Monos (auto) (0.0-1.3) x10^3/uL Absolute Nucleated RBC (0.00-0.01) x10^3u/L Lymphocytes % (24.0-44.0) % Monocytes % (0.0-12.0) % Eosinophils % (0.00-5.0) % Basophils % (0.0-0.4) % Absolute Granulocytes (1.4-6.9) x10^3/uL Basophils # (0-0.4) x10^3/uL Sodium (137-145) mmol/L Potassium (3.5-5.1) mmol/L Chloride (98-107) mmol/L Carbon Dioxide (22-30) mmol/L Anion Gap (5-15) MEQ/L BUN (7-17) mg/dL Creatinine (0.52-1.04) mg/dL Estimated GFR ML/MIN Glucose (74-106) mg/dL POC Glucometer 298 H 475 H (74 to 106) mg/dL Calcium (8.4-10.2) mg/dL Total Bilirubin (0.2-1.3) mg/dL AST (14-36) U/L ALT (0-35) U/L Alkaline Phosphatase (38-126) U/L Serum Total Protein (6.3-8.2) g/dL Albumin (3.5-5.0) g/dL Procalcitonin 0.043 (0.030-0.080) ng/mL 03/14/22 03/14/22 03/14/22 Range/Units 04:40 04:40 07:23 WBC 12.3 H (4.0-10.5) x10^3/uL RBC 4.58 (4.1-5.4) x10^6/uL Hgb 14.0 (12.0-16.0) g/dL Hct 44.6 (35-47) % MCV 97.4 (78-100) fL MCH 30.6 (26-32) pg MCHC 31.4 L (32-36) g/dL RDW 13.3 (11.5-14.0) % Plt Count 289 (150-450) x10^3/uL MPV 9.6 (7.5-11.0) fL Gran % 85.6 H (36.0-66.0) % Immature Gran % (Auto) 2.2 H (0.00-0.4) % Nucleat RBC Rel Count 0.0 (0.00-0.1) % Eos # (Auto) 0 (0-0.5) x10^3/uL Immature Gran # (Auto) 0.27 H (0.00-0.03) x10^3u/L Absolute Lymphs (auto) 0.80 L (1.0-4.6) x10^3/uL Absolute Monos (auto) 0.67 (0.0-1.3) x10^3/uL Absolute Nucleated RBC 0.00 (0.00-0.01) x10^3u/L Lymphocytes % 6.5 L (24.0-44.0) % Monocytes % 5.5 (0.0-12.0) % Eosinophils % 0.0 (0.00-5.0) % Basophils % 0.2 (0.0-0.4) % Absolute Granulocytes 10.49 H (1.4-6.9) x10^3/uL Basophils # 0.03 (0-0.4) x10^3/uL Sodium 134 L (137-145) mmol/L Potassium 4.4 (3.5-5.1) mmol/L Chloride 94 L (98-107) mmol/L Carbon Dioxide 36 H (22-30) mmol/L Anion Gap 8.4 (5-15) MEQ/L BUN 19 H (7-17) mg/dL Creatinine 0.48 L (0.52-1.04) mg/dL Estimated GFR > 60.0 ML/MIN Glucose 308 H (74-106) mg/dL POC Glucometer 291 H (74 to 106) mg/dL Calcium 8.6 (8.4-10.2) mg/dL Total Bilirubin 0.30 (0.2-1.3) mg/dL AST 16 (14-36) U/L ALT 31 (0-35) U/L Alkaline Phosphatase 78 (38-126) U/L Serum Total Protein 6.7 (6.3-8.2) g/dL Albumin 3.3 L (3.5-5.0) g/dL Procalcitonin (0.030-0.080) ng/mL 03/14/22 Range/Units 11:25 WBC (4.0-10.5) x10^3/uL RBC (4.1-5.4) x10^6/uL Hgb (12.0-16.0) g/dL Hct (35-47) % MCV (78-100) fL MCH (26-32) pg MCHC (32-36) g/dL RDW (11.5-14.0) % Plt Count (150-450) x10^3/uL MPV (7.5-11.0) fL Gran % (36.0-66.0) % Immature Gran % (Auto) (0.00-0.4) % Nucleat RBC Rel Count (0.00-0.1) % Eos # (Auto) (0-0.5) x10^3/uL Immature Gran # (Auto) (0.00-0.03) x10^3u/L Absolute Lymphs (auto) (1.0-4.6) x10^3/uL Absolute Monos (auto) (0.0-1.3) x10^3/uL Absolute Nucleated RBC (0.00-0.01) x10^3u/L Lymphocytes % (24.0-44.0) % Monocytes % (0.0-12.0) % Eosinophils % (0.00-5.0) % Basophils % (0.0-0.4) % Absolute Granulocytes (1.4-6.9) x10^3/uL Basophils # (0-0.4) x10^3/uL Sodium (137-145) mmol/L Potassium (3.5-5.1) mmol/L Chloride (98-107) mmol/L Carbon Dioxide (22-30) mmol/L Anion Gap (5-15) MEQ/L BUN (7-17) mg/dL Creatinine (0.52-1.04) mg/dL Estimated GFR ML/MIN Glucose (74-106) mg/dL POC Glucometer 293 H (74 to 106) mg/dL Calcium (8.4-10.2) mg/dL Total Bilirubin (0.2-1.3) mg/dL AST (14-36) U/L ALT (0-35) U/L Alkaline Phosphatase (38-126) U/L Serum Total Protein (6.3-8.2) g/dL Albumin (3.5-5.0) g/dL Procalcitonin (0.030-0.080) ng/mL Multi-Disciplinary Progress Notes: Multi-Disciplinary Progress Notes 03/14/22 09:28 Case Management Note by Nadia Ortiz NO CHANGE IN DC PLANS AT THIS TIME. PATIENT WEANING OFF OXYGEN AT THIS TIME. S/W BON IN RT- IF PATIENT ABLE TO WEAN TO ROOM AIR TODAY, ASKED THEM TO TRY PATIENT ON HOME BIPAP/CPAP THIS EVENING WITH ROOM AIR THIS IS WHAT SHE WEARS AT HOME. SHE VERIFIED UNDERSTANDING Initialized on 03/14/22 09:28 - END OF NOTE Assessment/Plan (1) Asthma exacerbation Current Visit: Yes Status: Acute Qualifiers: Asthma severity: severe Asthma persistence: persistent Qualified Code(s): J45.51 - Severe persistent asthma with (acute) exacerbation Assessment & Plan: She's doing much better. Will start weaning down steroid, from 80mg IV q8h to 40mg IV q12h. May be able to discharge to home tomorrow or the next day, on home O2. Code(s): J45.901 - UNSPECIFIED ASTHMA WITH (ACUTE) EXACERBATION (2) Community acquired pneumonia Current Visit: Yes Status: Acute Qualifiers: Laterality: right Lung location: lower lobe of lung Qualified Code(s): J18.9 - Pneumonia, unspecified organism Code(s): J18.9 - PNEUMONIA, UNSPECIFIED ORGANISM (3) Hypoxia Current Visit: No Status: Acute Code(s): R09.02 - HYPOXEMIA (4) Anxiety Current Visit: No Status: Chronic Code(s): F41.9 - ANXIETY DISORDER, UNSPECIFIED (5) Leukocytosis Current Visit: No Status: Acute Code(s): D72.829 - ELEVATED WHITE BLOOD CELL COUNT, UNSPECIFIED (6) COPD (chronic obstructive pulmonary disease) Current Visit: No Status: Chronic Qualifiers: (7) Diabetes Current Visit: No Status: Chronic Qualifiers: Code(s): E11.9 - TYPE 2 DIABETES MELLITUS WITHOUT COMPLICATIONS (8) HTN (hypertension) Current Visit: No Status: Chronic Qualifiers: Hypertension type: primary hypertension Qualified Code(s): I10 - Essential (primary) hypertension Code(s): I10 - ESSENTIAL (PRIMARY) HYPERTENSION (9) Rheumatoid arthritis Current Visit: No Status: Chronic Qualifiers: Rheumatoid arthritis location: multiple sites Code(s): M06.9 - RHEUMATOID ARTHRITIS, UNSPECIFIED (10) Tobacco abuse Current Visit: Yes Status: Chronic Code(s): Z72.0 - TOBACCO USE (11) Tobacco abuse counseling Current Visit: Yes Status: Acute Code(s): Z71.6 - TOBACCO ABUSE COUNSELING
[2022-03-14] MEDS: solu-MEDROL 40 MG, Sterile H2O 10 ml 1 ML IV SCH ×2 (17:00)
[2022-03-15 04:11] VITALS: O2SAT 93
[2022-03-15] MEDS: solu-MEDROL 40 MG, Sterile H2O 10 ml 1 ML IV SCH ×2 (06:28)
[2022-03-15] MEDS: Advair Hfa 115/21 Common canister IH SCH (06:31)
[2022-03-15] MEDS: DUONEB 0.5-3 MG/3 ml Neb IH SCH ×2 (06:31→10:19)
[2022-03-15 07:24] VITALS: BP 154/78
--- NOTE | 2022-03-15 08:58 | PCM.DS ---
Discharge Summary Date of Admission: 03/08/22 14:33 Admitting Physician: YAW BRUNO Consults: Consults on Case 03/14/22 09:09 Diet Consult [Nutritional Consult] ROUTINE Primary Care Provider: TATUM MINER Allergies Allergies amoxicillin [Amoxicillin] Allergy (Severe, Verified 03/08/22 12:09) Rash aripiprazole [From Abilify] Allergy (Severe, Verified 03/08/22 12:09) Swelling Confusion metronidazole [From Flagyl] Allergy (Severe, Verified 03/08/22 12:09) Rash Boil Rash Metronidazole HCl [From Flagyl] Allergy (Severe, Verified 03/08/22 12:09) Rash Boil Rash Penicillins Allergy (Severe, Verified 03/08/22 12:09) Rash Boil Rash quetiapine fumarate [From Seroquel] Allergy (Severe, Verified 03/08/22 12:09) Swelling Confusion codeine [Codeine] Allergy (Mild, Verified 03/08/22 12:09) Nausea Pt states that the room is spinning trazodone Adverse Reaction (Mild, Verified 03/08/22 12:09) Pt states that she was blind for a few 3-4 seconds Hospital Summary - Hospital Course Hospital Course: patient admitted with cough and shortness of breath. doing well at this time, treated for pneumonia and copd exacerbation. she is down to 1L oxygen at this time. - Vitals & Intake/Output Vital Signs: Vital Signs Temperature 97.7 F 03/15/22 07:24 Pulse Rate 52 L 03/15/22 07:24 Respiratory Rate 16 03/15/22 07:24 Blood Pressure 154/78 03/15/22 07:24 O2 Sat by Pulse Oximetry 93 L 03/15/22 07:24 Intake & Output: Intake & Output 03/12/22 03/13/22 03/14/22 03/15/22 11:59 11:59 11:59 11:59 Intake Total 2400 1230 1530 1100 Balance 2400 1230 1530 1100 Weight 139 kg - Lab Result Diagrams: 03/14/22 04:40 03/14/22 04:40 Lab Results-Last 24 Hrs: Lab Results-Last 24 Hours 03/14/22 03/14/22 03/14/22 Range/Units 11:25 16:19 20:53 POC Glucometer 293 H 412 H 323 H (74 to 106) mg/dL 03/15/22 Range/Units 07:06 POC Glucometer 214 H (74 to 106) mg/dL Micro Results-Entire Visit: Microbiology 03/09/22 10:54 Gram Stain - Final Sputum - Expectorant Sputum Culture - Final ORGANISMS ISOLATED ARE CONSISTENT WITH NORMAL RESP ALESIA MODERATE GROWTH, NO PREDOMINANT ORGANISM Accuchecks Date 03/15/22 Time 07:23 - Procedures and Test Procedures and Tests throughout Hospitalization: Therapy Orders & Screens 03/08/22 12:56 Respiratory Therapy Assessment DAILY Comment: 03/08/22 15:32 RT Screen per Nursing Assess ONCE Comment: Protocol Order Physician Instructions: Greater than 3 points order RT Admission Screen Reason For Exam: Triggered on Admission Diagnosis: COMMUNITY ACQUIRED PNEUMONIA Diagnosis: COMMUNITY ACQUIRED PNEUMONIA Pneumonia: Yes Home O2: No Asthma: No CHF: No Home CPAP/BIPAP: Yes: CPAP Home Nebs/MDI: Yes Total Points: 13 Smoking Cessation Education ONCE Comment: Diagnosis: COMMUNITY ACQUIRED PNEUMONIA Smoking Status: Current every day smoker How long have you smoked: 40 YEARS Have you smoked in the past 12 months: Yes Approximately how many cigarettes per day: 1 1/2 PACK Do you dip or chew tobacco: No 03/08/22 15:39 Oxygen Oxymizer LPM 10 lpm Comment: Diagnosis: COMMUNITY ACQUIRED PNEUMONIA 03/08/22 18:31 BiPap/CPAP ROUTINE Comment: CPAP 6cm at night Diagnosis: COMMUNITY ACQUIRED PNEUMONIA Discharge Exam General Appearance: no apparent distress, obese Neurologic Exam: alert, oriented x 3 Respiratory Exam: diminished breath sounds, prolonged expirations Cardiovascular Exam: regular rate/rhythm, normal heart sounds Gastrointestinal/Abdomen Exam: soft, No tenderness, No mass Extremity Exam: normal inspection, normal range of motion Final Diagnosis/Problem List - Final Discharge Diagnosis/Problem (1) Community acquired pneumonia Current Visit: Yes Status: Acute Assessment & Plan: patient has received 7 days of therapy at this time. no further abx required upon discharge. Code(s): J18.9 - PNEUMONIA, UNSPECIFIED ORGANISM (2) COPD exacerbation Current Visit: Yes Status: Acute Assessment & Plan: po prednisone, home oxygen. has nebulizer and solution at home. Code(s): J44.1 - CHRONIC OBSTRUCTIVE PULMONARY DISEASE W (ACUTE) EXACERBATION (3) Rheumatoid arthritis Current Visit: No Status: Chronic Code(s): M06.9 - RHEUMATOID ARTHRITIS, UNSPECIFIED (4) Chronic hypoxemic respiratory failure Current Visit: Yes Status: Acute Assessment & Plan: qualify for home oxygen on discharge. - Discharge Disposition: Home, Self-Care Condition: Stable Prescriptions: New Prednisone 20 mg [Deltasone 20 mg] 20 mg PO UD #18 tablet Continue predniSONE [Prednisone] 5 mg PO BID Metformin HCl 1,000 mg PO BID Lisinopril/Hydrochlorothiazide [Lisinopril-Hctz 20-25 mg Tab] 1 tab PO DAILY Fluticasone Propion/Salmeterol [Wixela 250-50 Inhub] 1 puff IN BID Duloxetine HCl 30 mg PO DAILY Duloxetine HCl 60 mg PO DAILY Carvedilol 3.125 mg [Coreg 3.125 MG] 3.125 mg PO BID Albuterol Sulfate Mdi [Proair Hfa MDI] 2 puff IN QIDPRN PRN PRN Reason: COPD Folic Acid 1 mg PO DAILY Empagliflozin [Jardiance] 10 mg PO DAILY Tramadol HCl 50 mg [Ultram 50 mg] 50 mg PO DAILY Albuterol/Ipratropium 3ml Neb* [DUONEB 0.5-3 MG/3 ml Neb] 1 neb IH Q6H PRN PRN PRN Reason: Shortness Of Breath Abatacept/Maltose 250 MG [Orencia 250 MG Vial] 1,000 mg IV UD clonazePAM [Clonazepam] 0.5 mg PO TID Instructions: Pneumonia, Adult (DC) Follow up with: TATUM MINER MD [Primary Care Provider] - 2 weeks
[2022-03-15] MEDS: ULTRAM 50 MG PO PRN (09:10)
[2022-03-15] MEDS: Acidophilus TABLET PO SCH (09:11)
[2022-03-15] MEDS: Zestril 20 MG PO SCH (09:11)
[2022-03-15] MEDS: Cymbalta 30 MG Capsule PO SCH (09:11)
[2022-03-15] MEDS: hydroDIURIL 25 MG PO SCH (09:11)
[2022-03-15] MEDS: clonazePAM PO SCH (09:11)
[2022-03-15] MEDS: FOLATE 1 MG PO SCH (09:11)
[2022-03-15] MEDS: Coreg 3.125 MG PO SCH (09:11)
[2022-03-15] MEDS: ENOXAPARIN SODIUM SQ SCH (09:11)
[2022-03-15] MEDS: Zithromax 500 MG/ 250 ML NaCl Premix 500 MG/250 ML IVPB IV SCH (09:17)
[2022-03-15 10:34] VITALS: PULSE 70
== END 2022-03-15 11:21 | disposition home or self-care (01) | DRG 194 ==
LOC: ED 12:05 → MED SURG 14:33
PROVIDERS: ADMIT Family Medicine; ATTEND Family Medicine
DX: J18.9 Pneumonia, unspecified organism (principal); J44.1 Chronic obstructive pulmonary disease with (acute) exacerbation; J96.11 Chronic respiratory failure with hypoxia; M06.9 Rheumatoid arthritis, unspecified; I10 Essential (primary) hypertension; E11.9 Type 2 diabetes mellitus without complications; F31.9 Bipolar disorder, unspecified; F41.9 Anxiety disorder, unspecified; D72.829 Elevated white blood cell count, unspecified; Z79.899 Other long term (current) drug therapy; Z20.828 Contact with and (suspected) exposure to other viral communicable diseases; Z85.41 Personal history of malignant neoplasm of cervix uteri; Z72.0 Tobacco use
CPT/HCPCS: 0241U; 36000; 36415; 71045; 71260; 80048; 80053; 82947; 83036; 83735; 83880; 84145; 84484; 85025; 85027; 85379; 87070; 93005; 93041; 94002; 94003; 94640; 94660; 94762; 96365; 96367; 96374; 99285; J0456; J0696; J1650; J1817; J2920; J2930; A9270-GY; J3475

== ENCOUNTER 2023-03-05 19:18 | Emergency (ER) | payer MEDICARE ==
--- NOTE | 2023-03-05 19:27 | ERPHSYRPT ---
- History of Present Illness Time Seen by Provider: 03/05/23 19:26 Historian: patient, family Exam Limitations: no limitations Physician History: This is a morbidly obese 57-year-old white female patient of Dr. Dawkins who has a history of COPD and wears oxygen at night, history of hypertension, rheumatoid arthritis, diabetes and anxiety. She presents with right-sided abdominal pain that radiates into her flank. She has never had a cholecystectomy before. She has had hysterectomy and a hernia repair. She feels nauseated and bloated. Patient denies chest pain. Patient states her shortness of breath that she is experiencing now is typical for her. She denies vomiting she denies diarrhea. Patient states she is not allergic to intravenous contrast. Timing/Duration: day(s) (5 to 7 days), worse Abdominal Pain Onset Location: RUQ, RLQ, flank (Right) Pain Radiation: flank (Right) Severity of Pain-Max: mild (To moderate) Modifying Factors: Improves With: nothing Associated Symptoms: loss of appetite, nausea, shortness of breath (Chronically), No chest pain, No vomiting Previous symptoms: no recent treatment Allergies/Adverse Reactions: amoxicillin [Amoxicillin] Allergy (Severe, Verified 03/05/23 19:28) Rash aripiprazole [From Abilify] Allergy (Severe, Verified 03/05/23 19:28) Swelling Confusion metronidazole [From Flagyl] Allergy (Severe, Verified 03/05/23 19:28) Rash Boil Rash Metronidazole HCl [From Flagyl] Allergy (Severe, Verified 03/05/23 19:28) Rash Boil Rash Penicillins Allergy (Severe, Verified 03/05/23 19:28) Rash Boil Rash quetiapine fumarate [From Seroquel] Allergy (Severe, Verified 03/05/23 19:28) Swelling Confusion codeine [Codeine] Allergy (Mild, Verified 03/05/23 19:28) Nausea Pt states that the room is spinning trazodone Adverse Reaction (Mild, Verified 03/05/23 19:28) Pt states that she was blind for a few 3-4 seconds Home Medications: Albuterol Sulfate Mdi [ALBUTEROL/Proair Hfa MDI] 2 puff IN QIDPRN PRN 08/23/19 [History] Carvedilol 3.125 mg [Coreg 3.125 MG] 3.125 mg PO BID 08/23/19 [History] Duloxetine HCl 30 mg PO DAILY 08/23/19 [History] Duloxetine HCl 60 mg PO DAILY 08/23/19 [History] Fluticasone Propion/Salmeterol [Wixela 250-50 Inhub] 1 puff IN BID 08/23/19 [History] Lisinopril/Hydrochlorothiazide [Lisinopril-Hctz 20-25 mg Tab] 1 tab PO DAILY 08/23/19 [History] Metformin HCl 1,000 mg PO BID 08/23/19 [History] predniSONE [Prednisone] 5 mg PO BID 08/23/19 [History] Albuterol/Ipratropium 3ml Neb* [DUONEB 0.5-3 MG/3 ml Neb] 1 neb IH Q6H PRN PRN 03/08/22 [History] Empagliflozin [Jardiance] 10 mg PO DAILY 03/08/22 [History] Folic Acid 1 mg PO DAILY 03/08/22 [History] Tramadol HCl 50 mg [Ultram 50 mg] 50 mg PO DAILY 03/08/22 [History] clonazePAM [Clonazepam] 0.5 mg PO TID 03/10/22 [History] Hx Tetanus, Diphtheria Vaccination/Date Given: Yes Hx Influenza Vaccination/Date Given: No Hx Pneumococcal Vaccination/Date Given: No Travel Risk - International Travel Have you traveled outside of the country in past 3 weeks: No - Coronavirus Screening Are you exhibiting any of the following symptoms?: Yes Close contact with a COVID-19 positive Pt in past 14-21 Days: No - Vaccine Status Have you recieved a Covid-19 vaccination: No - Review of Systems Constitutional: Weakness Eyes: No Symptoms Ears, Nose, & Throat: No Symptoms Respiratory: Cough Cardiac: No Symptoms (Chronic) Abdominal/Gastrointestinal: Abdominal Pain, Nausea (Right side), Appetite Changes Genitourinary Symptoms: Flank Pain (Right flank pain) Skin: No Symptoms Neurological: No Symptoms Psychological: No Symptoms Endocrine: No Symptoms Hematologic/Lymphatic: No Symptoms Immunological/Allergic: No Symptoms All Other Systems: Reviewed and Negative - Past Medical History Pertinent Past Medical History: Yes Neurological History: No Pertinent History ENT History: Other Cardiac History: Hypertension Respiratory History: COPD, Emphysema Endocrine Medical History: Diabetes Type II Musculoskeletal History: Rheumatoid Arthritis GI Medical History: Hernia History: No Pertinent History Psycho-Social History: Anxiety Female Reproductive Disorders: Other Other Medical History: DRY EYES, MASS IN UTERUS - Past Surgical History Past Surgical History: Yes Neuro Surgical History: No Pertinent History Cardiac: No Pertinent History Respiratory: No Pertinent History Gastrointestinal: Hernia Repair Genitourinary: No Pertinent History Musculoskeletal: Orthopedic Surgery Female Surgical History: Hysterectomy, Tubal Ligation Other Surgical History: Ankle surgery. Knee drained and wash - Social History Smoking Status: Current every day smoker How long have you smoked: 40 YEARS Exposure to second hand smoke: No Drug Use: none Patient Lives Alone: No - Nursing Vital Signs Nursing Vital Signs: Initial Vital Signs Pulse Rate 108 H 03/05/23 20:00 Respiratory Rate 24 03/05/23 20:00 Blood Pressure 114/69 03/05/23 20:00 O2 Sat by Pulse Oximetry 94 L 03/05/23 20:00 Pain Scale Pain Intensity 2 - Physical Exam General Appearance: no apparent distress, alert, anxiety, obese Eye Exam: PERRL/EOMI, eyes nml inspection Ears, Nose, Throat Exam: normal ENT inspection, moist mucous membranes Neck Exam: normal inspection, non-tender, supple, full range of motion Respiratory Exam: normal breath sounds, lungs clear, airway intact, No chest tenderness, No respiratory distress Cardiovascular Exam: tachycardia Gastrointestinal/Abdomen Exam: soft, normal bowel sounds, tenderness (Right- sided tenderness to palpation), guarding (Mild guarding with right-sided palpation of her abdomen), No rebound Pelvic Exam: not done Rectal Exam: not done Back Exam: normal inspection, normal range of motion, CVA tenderness (Right side), No vertebral tenderness Extremity Exam: normal inspection, normal range of motion, pelvis stable Neurologic Exam: alert, oriented x 3, cooperative, vision therapist II-XII nml as tested, normal mood/affect, nml cerebellar function, nml station & gait, sensation nml Skin Exam: normal color, warm, dry Lymphatic Exam: No adenopathy SpO2 Interpretation: normal O2 Delivery: Room Air - Course Nursing assessment & vital signs reviewed: Yes EKG Interpreted by Me: RATE (108), Sinus Tach, NORMAL AXIS, NORMAL INTERVALS, NORMAL QRS, NORMAL ST-T, Other (No acute ischemic changes on today's twelve-lead EKG) Ordered Tests: Active Orders 24 hr Category Date Time Status EKG-ER Only STAT Care 03/05/23 20:20 Active IV Insertion STAT Care 03/05/23 20:08 Active ABDOMEN AND PELVIS W/0 CONTRAS [CT] Stat Exams 03/05/23 20:09 Taken CHEST WITH CONTRAST [CT] Stat Exams 03/05/23 20:46 Taken AMYLASE Stat Lab 03/05/23 20:00 Completed CBC W DIFF Stat Lab 03/05/23 20:00 Completed CMP Stat Lab 03/05/23 20:00 Completed CULTURE,URINE Stat Lab 03/05/23 20:10 Received D-DIMER QUANTITATIVE Stat Lab 03/05/23 20:00 Completed LIPASE Stat Lab 03/05/23 20:00 Completed Lactic Acid Stat Lab 03/05/23 20:20 Completed Lactic Acid Stat Lab 03/05/23 22:23 Received TROPONIN Q4H Lab 03/05/23 20:00 Completed TROPONIN Q4H Lab 03/06/23 00:30 Ordered TROPONIN Q4H Lab 03/06/23 04:30 Ordered UA W/RFX UR CULTURE Stat Lab 03/05/23 20:10 Completed Medication Summary Discontinued Medications Generic Name Dose Route Start Last Admin Trade Name Freq PRN Reason Stop Dose Admin Hydromorphone HCl 1 mg 03/05/23 20:08 03/05/23 20:14 Hydromorphone 1 Mg/1ml Inj IV 03/05/23 20:09 1 mg STAT ONE Administration Hydromorphone HCl Confirm 03/05/23 20:13 Hydromorphone 1 Mg/1ml Inj Administered 03/05/23 20:14 Dose 1 mg .ROUTE .STK-MED ONE Hydromorphone HCl 1 mg 03/05/23 22:45 03/05/23 22:49 Hydromorphone 1 Mg/1ml Inj IV 03/05/23 22:46 1 mg STAT ONE Administration Hydromorphone HCl Confirm 03/05/23 22:48 Hydromorphone 1 Mg/1ml Inj Administered 03/05/23 22:49 Dose 1 mg .ROUTE .STK-MED ONE Sodium Chloride 500 mls @ 500 mls/hr 03/05/23 20:45 03/05/23 21:49 Sodium Chloride 0.9% 500 Ml IV 03/05/23 21:44 Infused .Q1H ONE Infusion Sodium Chloride Confirm 03/05/23 20:47 Sodium Chloride 0.9% 500 Ml Administered 03/05/23 20:48 Dose 500 mls @ ud IV .STK-MED ONE Levofloxacin/Dextrose 500 mg in 100 mls @ 100 mls/hr 03/05/23 21:42 03/05/23 22:04 Levofloxacin 500mg/100ml D5w IV 03/05/23 22:41 100 ml/hr STAT STA 100 mls/hr Administration Levofloxacin/Dextrose Confirm 03/05/23 22:02 Levofloxacin 500mg/100ml D5w Administered 03/05/23 22:03 Dose 500 mg in 100 mls @ ud IV .STK-MED ONE Ondansetron HCl 4 mg 03/05/23 20:08 03/05/23 20:13 Ondansetron Hcl 4 Mg/2 Ml Vial IV 03/05/23 20:09 4 mg STAT ONE Administration Ondansetron HCl Confirm 03/05/23 20:13 Ondansetron Hcl 4 Mg/2 Ml Vial Administered 03/05/23 20:14 Dose 4 mg .ROUTE .STK-MED ONE Lab/Rad Data: Laboratory Result Diagrams 03/05/23 20:00 03/05/23 20:00 Laboratory Results 03/05/23 03/05/23 03/05/23 Range/Units 20:40 20:20 20:10 WBC (4.0-10.5) x10^3/uL RBC (4.1-5.4) x10^6/uL Hgb (12.0-16.0) g/dL Hct (35-47) % MCV (78-100) fL MCH (26-32) pg MCHC (32-36) g/dL RDW (11.5-14.0) % Plt Count (150-450) x10^3/uL MPV (7.5-11.0) fL Gran % (36.0-66.0) % Immature Gran % (Auto) (0.00-0.4) % Nucleat RBC Rel Count (0.00-0.1) % Eos # (Auto) (0-0.5) x10^3/uL Immature Gran # (Auto) (0.00-0.03) x10^3u/L Absolute Lymphs (auto) (1.0-4.6) x10^3/uL Absolute Monos (auto) (0.0-1.3) x10^3/uL Absolute Nucleated RBC (0.00-0.01) x10^3u/L Lymphocytes % (24.0-44.0) % Monocytes % (0.0-12.0) % Eosinophils % (0.00-5.0) % Basophils % (0.0-0.4) % Absolute Granulocytes (1.4-6.9) x10^3/uL Basophils # (0-0.4) x10^3/uL D-Dimer (0.0-0.50) mg/L Sodium (137-145) mmol/L Potassium (3.5-5.1) mmol/L Chloride (98-107) mmol/L Carbon Dioxide (22-30) mmol/L Anion Gap (5-15) MEQ/L BUN (7-17) mg/dL Creatinine (0.52-1.04) mg/dL Estimated GFR ML/MIN Glucose (74-106) mg/dL Lactic Acid 3.3 H (0.4-2.0) Calcium (8.4-10.2) mg/dL Total Bilirubin (0.2-1.3) mg/dL AST (14-36) U/L ALT (0-35) U/L Alkaline Phosphatase (38-126) U/L Troponin I (0.000-0.034) ng/mL Serum Total Protein (6.3-8.2) g/dL Albumin (3.5-5.0) g/dL Amylase (30-110) U/L Lipase (23-300) U/L Urine Color Yellow (Yellow) Urine Appearance Cloudy A (Clear) Urine pH 6.0 (4.6-8.0) Ur Specific [facility] >=1.030 A (1.005-1.030) Urine Protein Trace A (Negative) Urine Glucose (UA) >=1000 A (Negative) mg/dL Urine Ketones Negative (Negative) Urine Blood NHT (Negative) Urine Nitrite Negative (Negative) Urine Bilirubin Negative (Negative) Urine Urobilinogen 0.2 (0.2) mg/dL Ur Leukocyte Esterase Small A (Negative) U Hyaline Cast (Auto) NONE SEEN (0-2) /LPF Urine Microscopic RBC 0-2 (0-5) /HPF Urine Microscopic WBC >100 A (0-5) /HPF Ur Epithelial Cells None Seen (None Seen) /HPF Urine Bacteria None Seen (None Seen) /HPF Urine Culture Reflexed YES (NO) Influenza Type A Ag NEGATIVE (NEGATIVE) Influenza Type B Ag NEGATIVE (NEGATIVE) RSV (PCR) NEGATIVE (NEGATIVE) SARS-CoV-2 (PCR) NEGATIVE (NEGATIVE) 03/05/23 03/05/23 03/05/23 Range/Units 20:00 20:00 20:00 WBC (4.0-10.5) x10^3/uL RBC (4.1-5.4) x10^6/uL Hgb (12.0-16.0) g/dL Hct (35-47) % MCV (78-100) fL MCH (26-32) pg MCHC (32-36) g/dL RDW (11.5-14.0) % Plt Count (150-450) x10^3/uL MPV (7.5-11.0) fL Gran % (36.0-66.0) % Immature Gran % (Auto) (0.00-0.4) % Nucleat RBC Rel Count (0.00-0.1) % Eos # (Auto) (0-0.5) x10^3/uL Immature Gran # (Auto) (0.00-0.03) x10^3u/L Absolute Lymphs (auto) (1.0-4.6) x10^3/uL Absolute Monos (auto) (0.0-1.3) x10^3/uL Absolute Nucleated RBC (0.00-0.01) x10^3u/L Lymphocytes % (24.0-44.0) % Monocytes % (0.0-12.0) % Eosinophils % (0.00-5.0) % Basophils % (0.0-0.4) % Absolute Granulocytes (1.4-6.9) x10^3/uL Basophils # (0-0.4) x10^3/uL D-Dimer 1.81 H* (0.0-0.50) mg/L Sodium 138 (137-145) mmol/L Potassium 4.2 (3.5-5.1) mmol/L Chloride 100 (98-107) mmol/L Carbon Dioxide 25 (22-30) mmol/L Anion Gap 17.2 H (5-15) MEQ/L BUN 19 H (7-17) mg/dL Creatinine 0.98 (0.52-1.04) mg/dL Estimated GFR > 60.0 ML/MIN Glucose 131 H (74-106) mg/dL Lactic Acid (0.4-2.0) Calcium 9.9 (8.4-10.2) mg/dL Total Bilirubin 0.40 (0.2-1.3) mg/dL AST 24 (14-36) U/L ALT 22 (0-35) U/L Alkaline Phosphatase 67 (38-126) U/L Troponin I < 0.012 (0.000-0.034) ng/mL Serum Total Protein 7.3 (6.3-8.2) g/dL Albumin 4.4 (3.5-5.0) g/dL Amylase 67 (30-110) U/L Lipase 88 (23-300) U/L Urine Color (Yellow) Urine Appearance (Clear) Urine pH (4.6-8.0) Ur Specific [facility] (1.005-1.030) Urine Protein (Negative) Urine Glucose (UA) (Negative) mg/dL Urine Ketones (Negative) Urine Blood (Negative) Urine Nitrite (Negative) Urine Bilirubin (Negative) Urine Urobilinogen (0.2) mg/dL Ur Leukocyte Esterase (Negative) U Hyaline Cast (Auto) (0-2) /LPF Urine Microscopic RBC (0-5) /HPF Urine Microscopic WBC (0-5) /HPF Ur Epithelial Cells (None Seen) /HPF Urine Bacteria (None Seen) /HPF Urine Culture Reflexed (NO) Influenza Type A Ag (NEGATIVE) Influenza Type B Ag (NEGATIVE) RSV (PCR) (NEGATIVE) SARS-CoV-2 (PCR) (NEGATIVE) 03/05/23 Range/Units 20:00 WBC 18.9 H (4.0-10.5) x10^3/uL RBC 4.72 (4.1-5.4) x10^6/uL Hgb 15.3 (12.0-16.0) g/dL Hct 46.0 (35-47) % MCV 97.5 (78-100) fL MCH 32.4 H (26-32) pg MCHC 33.3 (32-36) g/dL RDW 13.4 (11.5-14.0) % Plt Count 206 (150-450) x10^3/uL MPV 9.3 (7.5-11.0) fL Gran % 84.6 H (36.0-66.0) % Immature Gran % (Auto) 0.4 (0.00-0.4) % Nucleat RBC Rel Count 0.0 (0.00-0.1) % Eos # (Auto) 0.13 (0-0.5) x10^3/uL Immature Gran # (Auto) 0.08 H (0.00-0.03) x10^3u/L Absolute Lymphs (auto) 1.10 (1.0-4.6) x10^3/uL Absolute Monos (auto) 1.50 H (0.0-1.3) x10^3/uL Absolute Nucleated RBC 0.00 (0.00-0.01) x10^3u/L Lymphocytes % 5.8 L (24.0-44.0) % Monocytes % 8.0 (0.0-12.0) % Eosinophils % 0.7 (0.00-5.0) % Basophils % 0.5 (0.0-0.4) % Absolute Granulocytes 15.95 H (1.4-6.9) x10^3/uL Basophils # 0.09 (0-0.4) x10^3/uL D-Dimer (0.0-0.50) mg/L Sodium (137-145) mmol/L Potassium (3.5-5.1) mmol/L Chloride (98-107) mmol/L Carbon Dioxide (22-30) mmol/L Anion Gap (5-15) MEQ/L BUN (7-17) mg/dL Creatinine (0.52-1.04) mg/dL Estimated GFR ML/MIN Glucose (74-106) mg/dL Lactic Acid (0.4-2.0) Calcium (8.4-10.2) mg/dL Total Bilirubin (0.2-1.3) mg/dL AST (14-36) U/L ALT (0-35) U/L Alkaline Phosphatase (38-126) U/L Troponin I (0.000-0.034) ng/mL Serum Total Protein (6.3-8.2) g/dL Albumin (3.5-5.0) g/dL Amylase (30-110) U/L Lipase (23-300) U/L Urine Color (Yellow) Urine Appearance (Clear) Urine pH (4.6-8.0) Ur Specific [facility] (1.005-1.030) Urine Protein (Negative) Urine Glucose (UA) (Negative) mg/dL Urine Ketones (Negative) Urine Blood (Negative) Urine Nitrite (Negative) Urine Bilirubin (Negative) Urine Urobilinogen (0.2) mg/dL Ur Leukocyte Esterase (Negative) U Hyaline Cast (Auto) (0-2) /LPF Urine Microscopic RBC (0-5) /HPF Urine Microscopic WBC (0-5) /HPF Ur Epithelial Cells (None Seen) /HPF Urine Bacteria (None Seen) /HPF Urine Culture Reflexed (NO) Influenza Type A Ag (NEGATIVE) Influenza Type B Ag (NEGATIVE) RSV (PCR) (NEGATIVE) SARS-CoV-2 (PCR) (NEGATIVE) - Progress Progress: improved, pain not gone completely, re-examined Progress Note: 03/05/23 20:31 This patient's medical issue is 1 of moderate complexity. Level of complexity in the work-up performed is based on review of the patient's past medical history, review of the patient's medication list, review the patient's drug allergy list, history of present illness and physical findings on examination. The work-up includes placement of intravenous line, twelve-lead EKG, infusion of normal saline solution, infusion of 1 mg Dilaudid, infusion of 4 mg intravenous Zofran, urinalysis, CBC, CMP, amylase, lipase, CT scan of the abdomen pelvis. We also ordered troponin level and D-dimer. 03/05/23 22:11 I reviewed and interpreted the laboratory results of this patient. The patient has a urinary tract infection. Patient has leukocytosis. She also had a elevated D-dimer level and therefore I ordered a CT scan of the chest with contrast. The CT scan of the abdomen without contrast shows a new, 1.8 x 3.2 x 2.5 cm right UPJ staghorn stone with moderate hydronephrosis and renal edema. There are new urinary bladder air bubbles that are iatrogenic versus gas-forming infection. CT scan of the chest with contrast is negative for pulmonary embolus. There is no new or acute findings present. 03/05/23 22:[address] [facility] and they are not excepting urology cases of patients at this time. We then contacted [facility] in [facility]. They do not have urology available. We have placed a call to [facility] in [facility] to speak with their urologist, Dr. Pena. We are awaiting a callback from Dr. Pena. 03/05/23 22:48 Dr. Pena from [facility] is a urologist but not an interventional urologist. This patient requires interventional urology. They declined acceptance of transfer 03/05/23 23:23 [address] with [address]. Galarza at [facility]. Dr. Galarza is the urologist on-call at that facility. I reviewed the patient history, presenting complaint, physical findings, laboratory study work-up results. He agrees that he would be a managing consultant clinical professor on this patient. He asked me to contact the hospitalist. I did speak with Dr. Gaines, the hospitalist on-call at [facility]. I reviewed the same information with him as I did with Dr. Galarza. He accepts the patient in transfer. We will make make arrangements for transportation. Counseled pt/family regarding: lab results, diagnosis, rad results Medical Desision Making - Independent Historian Additional History obtained from: Child - Diagnostic Testing Diagnostic test were ordered, analyzed, and reviewed by me: Yes Radiological Interpretation: Reviewed by me, Teleradiologist Report - Risk of complications The pt has a high risk of morbidity or mortality based on: Decision regarding hospitilization or escalation of hosp level of care - Departure Departure Disposition: Transfer Clinical Impression: Obstruction of right ureteropelvic junction (UPJ) due to stone, Leukocytosis, UTI (urinary tract infection) Condition: Stable Critical Care Time: No Referrals: TATUM DAWKINS MD [Primary Care Provider] - Follow up/PCP as directed
[2023-03-05] MEDS ORDERED: Hydromorphone 1 mg/ml Injection IV ONE ×2 (20:08→22:45)
[2023-03-05] MEDS ORDERED: Zofran 4 MG/2 ML VIAL IV ONE (20:08)
[2023-03-05] MEDS ORDERED: Hydromorphone 1 mg/ml Injection ONE ×2 (20:13→22:48)
[2023-03-05] MEDS ORDERED: Zofran 4 MG/2 ML VIAL ONE (20:13)
[2023-03-05 20:14] LABS: Absolute Neutrophil Ct (ANC) 15.95 x10^3/uL (1.4-6.9); BASOPHIL % 0.5 % (0.0-0.4); Basophil (Absolute #) 0.09 x10^3/uL (0-0.4); Eosinophil % 0.7 % (0.00-5.0); Eosinophil (Absolute #) 0.13 x10^3/uL (0-0.5); Hemoglobin 15.3 g/dL (12.0-16.0); IMMATURE GRAN # 0.08 x10^3u/L (0.00-0.03); IMMATURE GRAN % 0.4 % (0.00-0.4); Lymphocytes % 5.8 % (24.0-44.0); Mean Cell Volume 97.5 fL (78-100); Mean Corpuscular Hemoglobin 32.4 pg (26-32); Mean Corpuscular Hgb Concent. 33.3 g/dL (32-36); Mean Platelet Volume 9.3 fL (7.5-11.0); Neutrophil % 84.6 % (36.0-66.0); Platelet Count 206 x10^3/uL (150-450); Red Blood Count 4.72 x10^6/uL (4.1-5.4); Red Cell Distribution Width 13.4 % (11.5-14.0); White Blood Count 18.9 x10^3/uL (4.0-10.5)
[2023-03-05 20:18] LABS: Appearance Cloudy (Clear); Bacteria None Seen /HPF (None Seen); Bilirubin Negative (Negative); Blood NHT (Negative); Epithelial Cells None Seen /HPF (None Seen); Glucose, Urine >=1000 mg/dL (Negative); Hyaline Casts NONE SEEN /LPF (0-2); Ketones Negative (Negative); Leukocyte Esterase Small (Negative); Nitrite Negative (Negative); Protein,Urine Dip Trace (Negative); RBC 0-2 /HPF (0-5); Specific Gravity >=1.030 (1.005-1.030); Urobilinogen 0.2 mg/dL (0.2); WBC >100 /HPF (0-5)
[2023-03-05 20:21] LABS: ALBUMIN 4.4 g/dL (3.5-5.0); ALKALINE PHOSPHATASE 67 U/L (38-126); AMYLASE 67 U/L (30-110); ANION GAP 17.2 MEQ/L (5-15); BLOOD UREA NITROGEN 19 mg/dL (7-17); CHLORIDE 100 mmol/L (98-107); Calcium 9.9 mg/dL (8.4-10.2); Carbon Dioxide 25 mmol/L (22-30); Creatinine 1 0.98 mg/dL (0.52-1.04); EST GLOMERULAR FILTRATION RATE > 60.0 ML/MIN; Glucose 131 mg/dL (74-106); LIPASE 88 U/L (23-300); Potassium 4.2 mmol/L (3.5-5.1); SGOT/AST 24 U/L (14-36); SGPT/ALT 22 U/L (0-35); SODIUM 138 mmol/L (137-145); Total Protein 7.3 g/dL (6.3-8.2)
[2023-03-05 20:28] LABS: ADD URINE CULTURE? YES (NO)
[2023-03-05] MEDS ORDERED: Sodium Chloride 0.9% 500 ML 500 ML IV ONE ×2 (20:45→20:47)
[2023-03-05 21:35] LABS: INFLUENZA A NEGATIVE (NEGATIVE); INFLUENZA B NEGATIVE (NEGATIVE); RESPIRATORY SYNCTIAL VIRUS NEGATIVE (NEGATIVE); SARS-CoV-2 Xpert Express NEGATIVE (NEGATIVE)
[2023-03-05] MEDS ORDERED: Levofloxacin 500MG/100ML D5W 500 MG/100 ML BAG IV STA (21:42)
[2023-03-05] MEDS ORDERED: Levofloxacin 500MG/100ML D5W 500 MG/100 ML BAG IV ONE (22:02)
[2023-03-05 23:09] VITALS: PULSE 95; O2SAT 96
[2023-03-05] MEDS ORDERED: DUONEB 0.5-3 MG/3 ml Neb IH ONE ×2 (23:40→23:48)
[2023-03-05 23:51] VITALS: RESP 18
[2023-03-06 00:08] VITALS: BP 99/51
--- NOTE | 2023-03-06 08:41 | XRAY ---
Indication: Short of breath. Elevated d-dimer. Multiple contiguous axial images obtained through the chest using 100 cc Isovue 370 contrast and PE protocol. Comparison: March 09, 2022 Good opacification of the pulmonary arteries to include the lobar and segmental branches. No pulmonary embolus. Heart not enlarged. Aorta is normal in course and caliber. There remains a few small mediastinal and right hilar calcified nodes. No pathologic mediastinal/hilar lymphadenopathy. Lungs again demonstrate mild pulmonary emphysema and small medial right upper lobe calcified granuloma. No new pulmonary mass/nodule, infiltrate, or effusion. Bony thorax intact. CT abdomen/pelvis reported separately. Impression: 1. Continued negative pulmonary embolus. No new/acute cardiopulmonary abnormalities. 2. Again chronic findings including pulmonary emphysema and old granulomatous disease.
--- NOTE | 2023-03-06 08:51 | XRAY ---
Indication: Right abdomen/flank pain. Multiple contiguous axial images obtained through the abdomen and pelvis without contrast. Comparison: August 24, 2019 CT chest report AAA. Noncontrasted stomach and bowel loops appear nonobstructed. New 1.8 x 3.2 x 2.5 cm right UPJ staghorn calculus. Right kidney is edematous with moderate hydronephrosis and mild perinephric stranding consistent with obstructive uropathy. Additional faint right renal micro-calculi. Urinary bladder demonstrates new tiny intraluminal air bubbles either iatrogenic from recent catheterization versus gas-forming infection. Interval hysterectomy and ventral hernia repair. No free fluid/air. Again fatty liver. Remaining gallbladder, pancreas, spleen, adrenal glands, left kidney, and left ureter are unremarkable for noncontrast exam. Very minimal aortoiliac calcifications without AAA. Osseous structures intact again with lumbosacral junction degenerative disc disease. Impression: 1. New right UPJ staghorn calculus producing obstructive uropathy as detailed. Additional faint right renal micro-calculi. 2. New urinary bladder intraluminal air bubbles either echogenic versus gas-forming infection. 3. Chronic findings including fatty liver, arteriosclerotic disease, and lumbosacral junction degenerative disc disease.
== END 2023-03-06 00:05 | disposition short-term general hospital (02) ==
LOC: ED 19:18
DX: N13.2 Hydronephrosis with renal and ureteral calculous obstruction (principal); D72.829 Elevated white blood cell count, unspecified; N39.0 Urinary tract infection, site not specified; R10.31 Right lower quadrant pain; R10.11 Right upper quadrant pain; R11.0 Nausea; I10 Essential (primary) hypertension; E11.9 Type 2 diabetes mellitus without complications; Z79.84 Long term (current) use of oral hypoglycemic drugs; Z79.899 Other long term (current) drug therapy; Z28.310 Unvaccinated for COVID-19; Z72.0 Tobacco use; Z20.828 Contact with and (suspected) exposure to other viral communicable diseases
CPT/HCPCS: 0241U; 36000; 36415; 71260; 74176; 80053; 81001; 82150; 83605; 83690; 84484; 85025; 85379; 87086; 93005; 94640; 96365; 96374; 96375; 96376; 99285; J1170; J1956; J2405; A9270-GY

== ENCOUNTER 2023-04-16 19:17 | Emergency (ER) | payer MEDICARE ==
--- NOTE | 2023-04-16 20:47 | ERPHSYRPT ---
- History of Present Illness Time Seen by Provider: 04/16/23 20:47 Source: patient, family Exam Limitations: no limitations Physician History: This is an obese 57-year-old white female who had a right nephrostomy tube placed approximately 6 weeks ago in [facility] for a significantly renal stone. Patient states it accidentally became dislodged approximately 12 30-1 o'clock this afternoon. She did not arrive to our facility until just 1 to 2 hours ago. Patient states that she is not having any abdominal pain or flank pain at this time. Patient stated that she contacted her urologist office who told her to go to the nearest emergency department that had urology available. It is unclear to me, even after our discussion, why she did not proceed to a different facility. She is aware we do not have urology. However, she is here, she is in no distress and has no abdominal pain or flank pain. Timing/Duration: today Activites at Onset: none Severity of Pain-Max: none Severity of Pain-Current: none Prior abdominal problems: none Modifying Factors: Improves With: nothing Associated Symptoms: denies symptoms Allergies/Adverse Reactions: amoxicillin [Amoxicillin] Allergy (Severe, Verified 04/16/23 21:12) Rash aripiprazole [From Abilify] Allergy (Severe, Verified 04/16/23 21:12) Swelling Confusion metronidazole [From Flagyl] Allergy (Severe, Verified 04/16/23 21:12) Rash Boil Rash Metronidazole HCl [From Flagyl] Allergy (Severe, Verified 04/16/23 21:12) Rash Boil Rash Penicillins Allergy (Severe, Verified 04/16/23 21:12) Rash Boil Rash quetiapine fumarate [From Seroquel] Allergy (Severe, Verified 04/16/23 21:12) Swelling Confusion codeine [Codeine] Allergy (Mild, Verified 04/16/23 21:12) Nausea Pt states that the room is spinning azithromycin Allergy (Unknown, Verified 04/16/23 21:12) celecoxib [From Celebrex] Allergy (Unknown, Verified 04/16/23 21:12) clindamycin Allergy (Unknown, Verified 04/16/23 21:12) naproxen Allergy (Unknown, Verified 04/16/23 21:12) trazodone Adverse Reaction (Mild, Verified 04/16/23 21:12) Pt states that she was blind for a few 3-4 seconds Home Medications: Albuterol Sulfate Mdi [ALBUTEROL/Proair Hfa MDI] 2 puff IN QIDPRN PRN 08/23/19 [History] Carvedilol 3.125 mg [Coreg 3.125 MG] 3.125 mg PO BID 08/23/19 [History] Duloxetine HCl 30 mg PO DAILY 08/23/19 [History] Duloxetine HCl 60 mg PO DAILY 08/23/19 [History] Fluticasone Propion/Salmeterol [Wixela 250-50 Inhub] 1 puff IN BID 08/23/19 [History] Lisinopril/Hydrochlorothiazide [Lisinopril-Hctz 20-25 mg Tab] 1 tab PO DAILY 08/23/19 [History] Metformin HCl 1,000 mg PO BID 08/23/19 [History] predniSONE [Prednisone] 6 mg PO DAILY PRN PRN 08/23/19 [History] Albuterol/Ipratropium 3ml Neb* [DUONEB 0.5-3 MG/3 ml Neb] 1 neb IH Q6H PRN PRN 03/08/22 [History] Empagliflozin [Jardiance] 10 mg PO DAILY 03/08/22 [History] Folic Acid 1 mg PO DAILY 03/08/22 [History] Tramadol HCl 50 mg [Ultram 50 mg] 50 mg PO DAILY 03/08/22 [History] clonazePAM [Clonazepam] 0.5 mg PO TID 03/10/22 [History] Furosemide 20 mg [Lasix 20 mg] 20 mg PO DAILY 04/16/23 [History] Ipratropium/Albuterol Sulfate [Iprat-Albut 0.5-3(2.5) mg/3 ml] 3 ml IH QID 04/16/23 [History] Hx Tetanus, Diphtheria Vaccination/Date Given: Yes Hx Influenza Vaccination/Date Given: No Hx Pneumococcal Vaccination/Date Given: No Travel Risk - International Travel Have you traveled outside of the country in past 3 weeks: No - Coronavirus Screening Are you exhibiting any of the following symptoms?: No Close contact with a COVID-19 positive Pt in past 14-21 Days: No - Vaccine Status Have you recieved a Covid-19 vaccination: No - Review of Systems Constitutional: No Symptoms Eyes: No Symptoms Ears, Nose, & Throat: No Symptoms Respiratory: No Symptoms Cardiac: No Symptoms Abdominal/Gastrointestinal: No Symptoms Genitourinary Symptoms: No Symptoms Musculoskeletal: No Symptoms Skin: No Symptoms Neurological: No Symptoms Psychological: No Symptoms Endocrine: No Symptoms Hematologic/Lymphatic: No Symptoms Immunological/Allergic: No Symptoms All Other Systems: Reviewed and Negative - Past Medical History Pertinent Past Medical History: Yes Neurological History: No Pertinent History ENT History: Other Cardiac History: Hypertension Respiratory History: COPD, Emphysema Endocrine Medical History: Diabetes Type II Musculoskeletal History: Rheumatoid Arthritis GI Medical History: Hernia History: No Pertinent History Psycho-Social History: Anxiety Female Reproductive Disorders: Other Other Medical History: DRY EYES, MASS IN UTERUS - Past Surgical History Past Surgical History: Yes Neuro Surgical History: No Pertinent History Cardiac: No Pertinent History Respiratory: No Pertinent History Gastrointestinal: Hernia Repair Genitourinary: No Pertinent History Musculoskeletal: Orthopedic Surgery Female Surgical History: Hysterectomy, Tubal Ligation Other Surgical History: Ankle surgery. Knee drained and wash - Social History Smoking Status: Current every day smoker How long have you smoked: 40 YEARS Exposure to second hand smoke: No Drug Use: none Patient Lives Alone: No - Nursing Vital Signs Nursing Vital Signs: Initial Vital Signs Temperature 97.1 F 04/16/23 20:44 Pulse Rate 94 H 04/16/23 20:44 Respiratory Rate 18 04/16/23 20:44 Blood Pressure 155/96 04/16/23 20:44 O2 Sat by Pulse Oximetry 92 L 04/16/23 20:44 Pain Scale Pain Intensity 3 - Physical Exam General Appearance: no apparent distress, alert, anxiety, obese Eye Exam: PERRL/EOMI, eyes nml inspection Ears, Nose, Throat Exam: normal ENT inspection, moist mucous membranes Neck Exam: normal inspection, non-tender, supple, full range of motion Respiratory Exam: airway intact, No chest tenderness, No respiratory distress Gastrointestinal/Abdomen Exam: No tenderness Pelvic Exam: not done Rectal Exam: not done Back Exam: normal inspection, normal range of motion, No CVA tenderness (Right flank drainage site covered with bandage and is dry) Extremity Exam: normal inspection, normal range of motion, pelvis stable Neurologic Exam: alert, oriented x 3, cooperative, patient representative II-XII nml as tested, normal mood/affect, nml cerebellar function, nml station & gait, sensation nml Skin Exam: normal color, warm, dry Lymphatic Exam: No adenopathy SpO2 Interpretation: normal O2 Delivery: Room Air - Course Nursing assessment & vital signs reviewed: Yes - Progress Progress: unchanged Air Movement: good Progress Note: 04/16/23 22:10 This patient's medical issue is low complexity. She is requiring a medical screening exam. Patient herself states that she is in no distress and she has no abdominal pain or flank pain. She also states that the office of the urologist that placed the nephrostomy tube told her to proceed to an emergency department where there is a urologist present and available. She is aware that we do not have urology services here at our facility. I recommended that she go to the nearest hospital emergency department where there is urology services available. I recommended that she go earlier rather than wait till tomorrow. She can go by private vehicle. She does not need ambulance transportation. 04/16/23 22:21 We are in the process of determining the best way of helping the patient get to a facility where they have a urologist available. However, the patient eloped before we could complete the patient's emergency department stay. Blood Culture(s) Obtained: No Antibiotics given: No Counseled pt/family regarding: diagnosis, need for follow-up Medical Desision Making - Diagnostic Testing Diagnostic test were ordered, analyzed, and reviewed by me: No - Risk of complications Low Risk: Low risk of morbidity from additional dx testing or treatment - Departure Departure Disposition: AMA (Patient eloped before completing her hospital emergency department stay.) Clinical Impression: Nephrostomy tube displaced, Encounter for medical screening examination Condition: Stable Critical Care Time: No Referrals: TATUM MINER MD [Primary Care Provider] - Follow up/PCP as directed
[2023-04-16 21:10] VITALS: RESP 18; TEMP 97.1
[2023-04-16 21:45] VITALS: BP 123/72; PULSE 89; O2SAT 91
== END 2023-04-16 22:24 | disposition left against medical advice (07) ==
LOC: ED 19:17
DX: T83.022A Displacement of nephrostomy catheter, initial encounter (principal); I10 Essential (primary) hypertension; E11.9 Type 2 diabetes mellitus without complications; Z79.84 Long term (current) use of oral hypoglycemic drugs; Z79.899 Other long term (current) drug therapy; Z28.310 Unvaccinated for COVID-19; Z72.0 Tobacco use
CPT/HCPCS: 99281